=== PATIENT | male | born 1960 | race Caucasian/White ===

== ENCOUNTER 2022-12-31 10:37 | Outpatient (OUT) | payer OTHER, SELFPAY ==
[2022-12-31 11:15] LABS: Basophils Absolute Auto 0.1 10^3/uL (0.0-0.1); Basophils Percent Auto 0.6 % (0.2-2.0); Eosinophils Absolute Auto 0.2 10^3/uL (0.0-0.7); Eosinophils Percent Auto 2.4 % (0.9-7.0); Hemoglobin 16.1 g/dL (14.0-18.0); Immature Granulocytes Abs Auto 0.02 10^3/uL (0.00-0.03); Immature Granulocytes Pct Auto 0.2 % (0.0-0.5); Lymphocytes Absolute Auto 2.7 10^3/uL (1.2-3.8); Lymphocytes Percent Auto 31.4 % (20.5-60.0); Mean Corpuscular HGB Conc 33.5 g/dL (29.9-35.2); Mean Corpuscular Hemoglobin 28.5 pg (25.9-34.0); Mean Corpuscular Volume 85.1 fL (80.0-94.0); Mean Platelet Volume 10.3 fL (9.5-13.5); Monocytes Absolute Auto 0.9 10^3/uL (0.3-0.8); Monocytes Percent Auto 10.8 % (1.7-12.0); Neutrophils Absolute Auto 4.8 10^3/uL (1.4-6.5); Neutrophils Percent Auto 54.6 % (43.0-75.0); Platelet Count 194 10^3/uL (150-450); Red Blood Count 5.64 10^6/uL (4.70-6.10); Red Cell Distribution Width 13.2 % (11.0-15.0); White Blood Count 8.7 10^3/uL (4.0-11.0)
[2022-12-31 11:45] LABS: Alanine Aminotransferase 35 U/L (16-63); Albumin Globulin Ratio 1.3; Albumin Level 3.8 g/dL (3.4-5.0); Alkaline Phosphatase 83 U/L (46-116); Anion Gap 12.4; Aspartate Amino Transferase 18 U/L (15-37); BUN Creatinine Ratio 20.2; Bilirubin Total 0.6 mg/dL (0.2-1.0); Calcium 8.9 mg/dL (8.5-10.1); Carbon Dioxide 26.3 mmol/L (21.0-32.0); Chloride 106 mmol/L (98-107); Chol HDL Ratio 4.1; Cholesterol 132 mg/dL (<=200); Estimated GFR (African America >60 (>=60); Estimated GFR (Non-African Ame >60 (>=60); Globulin 2.9 g/dL; Glucose 95 mg/dL (74-106); HDL Cholesterol 32 mg/dL (40-60); Potassium 3.7 mmol/L (3.5-5.1); Sodium 141 mmol/L (136-145); Thyroid Stimulating Hormone 2.115 uIU/mL (0.358-3.740); Total Protein 6.7 g/dL (6.4-8.2); Triglycerides 88 mg/dL (<=150); VLDL CHOLESTEROL 17.6 mg/dL
[2022-12-31 11:57] LABS: Prostate Specific Antigen Scrn 3.77 ng/mL (<=4.00)
== END 2022-12-31 10:38 | disposition home or self-care (01) ==
LOC: LAB 10:41
PROVIDERS: PCP Family Medicine; Visit Provider Family Medicine
DX: Z12.5 Encounter for screening for malignant neoplasm of prostate (principal); E78.5 Hyperlipidemia, unspecified
CPT/HCPCS: 36415; 80053; 80061; 84443; 85025; G0103

== ENCOUNTER 2023-01-06 14:41 | Outpatient (OUT) | payer OTHER, SELFPAY ==
--- NOTE | 2023-01-06 | XR_ITS ---
[facility] [place] [id number] Patient Name: LOUIS SHIELDS MRN: [id number] date: 1960 Sex: M Assigned Patient Location: [facility] Current Patient Location: Accession/Order Number: [id number] Exam Date: 01/06/2023 14:45 Report Date: 01/07/2023 09:32 At the request of: MELANIA OREILLY Procedure: XR shoulder RT min 2V PROCEDURE: XR shoulder RT min 2V HISTORY: Pain in right shoulder M25.511 , chronic, limited range of motion COMPARISON: None. FINDINGS: BONES:Narrowing of the acromioclavicular joint with undersurface osteophytes. Small degenerative osteophyte along the inferior articular margin of the humeral head; no articular surface irregularity appreciable joint space narrowing. No fracture or dislocation. SOFT TISSUES:No visible soft tissue swelling. EFFUSION:None visible. OTHER: Negative. XR/XR shoulder RT min 2V IMPRESSION: 1. Moderate degenerative changes of the acromioclavicular joint which would predispose to rotator cuff injury. 2. Mild degenerative changes of the glenohumeral joint. Electronically authenticated by: KATRINA ANDERSON Date: 01/07/2023 09:32
== END 2023-01-06 14:42 | disposition home or self-care (01) ==
LOC: RAD 14:42
PROVIDERS: PCP Family Medicine; Visit Provider Family Medicine
DX: M25.511 Pain in right shoulder (principal)
CPT/HCPCS: 73030

== ENCOUNTER 2025-03-13 09:16 | Outpatient (OUT) | payer MEDICARE, BC, SELFPAY ==
--- OUTSIDE RECORDS SUMMARY | 2025-03-02 19:21 | XMS_ITS | Continuity of Care Document ---
Author Organization [facility] Address [address] [place] [address] Phone Care Team Providers Care Elevator Serviceman Name Role Phone Torsten Mahajan DO Primary Care Provider Torsten Mahajan DO Attending Provider Jay Ballard DO Emergency Provider Care Teams Patient Care Team Team Status: Active Member Role/Relationship Status Hernan Mahajan DO Primary Care Provider Active Visit Care Team Team Status: Inactive Member Role/Relationship Status Hernan Mahajan DO Primary Care Provider Active Sta rt: December 24, 2024 End: December 24ryharmeet Mahajan DOAttending ProviderActiveStart: December 24, 2024 End: December 24, 2024 Visit Care Team Team Status: Inactive Member Role/Relationship Status Dates Torsten Mahajan DO Primary Care Provider Active Sta rt: March 02, 2025 End: March 02, 2025Georcassie Ballard DOEmejustin ProviderActiveStart: March 02, 2025 End: March 02, 2025 Chief Complaint and Reason for Visit Chief Complaint Admit Date r/s Late Oct Appt December 24, 2024 1:43pm abd pain March 02, 2025 1 0:41am Reason for Visit Admit Date Obesity December 24, 2024 1:43pm Cyst December 24, 2024 1:43pm Body mass index (BMI) of 40.1 to 44.9 in adult December 24, 2024 1:43pm Allergies, Adverse Reactions, Alerts Allergen Type Severity Reaction Last Updated Verified Status No Known Allergies Allergy Unknown March 02, 2025 4:51pmYesActive Social History Smoking Status Status Start Date End Date Date of Observa tion Never smoked tobacco (finding) March 02, 2025 10:56am Observation Status Observation Response Date of Response Legal Sex Male (finding) [facility] 1960 Family History Relationship Condition Age at Onset Recorded Date/T kiesha father Hypertension Unknown grandparentDeceasedUnknownHeart diseaseUnknowngrandparentDeceasedUnknownmother HypertensionUnknownDiabetes mellitusUnknownObesityUnknownsisterObesityUnknown Problems Active Problems Problem Diagnosis/Recorded Date Onset Date Stat us Elevated PSA December 27, 2023 9:11am Unknown Act rosa Obstructive sleep apnea on CPAP May 07, 2020 11 :15am Unknown Active Hyperlipidemia December 26, 2023 8:10am Unknown Active Acute gallstone pancreatitis March 02, 2025 7:25pm Unknown Active BMI 40.0-44.9, adult July 16, 2024 9:23am Unknown Active Prediabetes February 06, 2024 9:50am Unknown A ctive Left knee pain June 20, 2023 2:55pm Unknown Ac tive CPAP (continuous positive ai rway pressure) dependence December 26, 2023 8:10am Unknown Active Hypertension May 07, 2020 11:15am Unknown Active Obesity December 26, 2023 8:10am Unknown Active Inactive/Resolved Problems Problem Diagnosis/Recorded Date Onset Date Stat us Acute UTI May 07, 2020 10:48am Unknown Resolved Medications Medication Status Dose Units Route Directions Qty Days Refills S tart Date Stop Date End Date Reason(s) Instructions Adherence Valsartan-Hydrochlorothiazide 160-12.5 mg tablet Discontinued 1 TAB PO Daily 90 1April 2023 4:27pmJune 2023 1:04pmPantoprazole 40 mg tablet,delayed release (DR/EC)Hhjfgzjccvin41HWXVTidnw403Meeki 2023 4:28pmJune 2023 1:04pmCelecoxib (Celebrex) 400 mg xoyyunfIadmioqmkfej631IRRVGshrb113Zfofv 2023 11:00pmJune 2023 1:04pmCelecoxib (Celebrex) 400 mg capsule Hcudetozfkzc298FXAJIqeam935Iuul 2023 1:03pmSeptember 2023 7:42am Pantoprazole 40 mg tablet,delayed release (DR/EC)Rcibypaspkud43EKUWGynqm916Ixls 2023 1:03pmSeptember 2023 7:42amValsartan-Hydrochlorothiazide 160- 12.5 mg pfyndxJoiwdjrqrawj6VGBIIGltxu380Cjrg 2023 1:03pmSeptember 2023 7:42amSemaglutide (Weight Loss) 1.7 mg/0.75 mL pen injectorDiscontinued1.7 MGSUBCUTevery heun40Nluhccnl 2024 12:00amApril 2024 9:31am1.8 mg through [facility] DrugCelecoxib (Celebrex) 400 mg nhbmlasTbgbth927XHLSDvcvy135 February 04, 2025 11:52amComplies with drug therapyValsartan- Hydrochlorothiazide 160-12.5 mg cbpiekAkqumf5RLZHKMuoif129Cdbpdlsw 10th, 2025 11:52amComplies with drug therapyValsartan-Hydrochlorothiazide 160-12.5 mg MhoqxjOehdnmttoplv2YBIZKSwxvoUoptzulw 2020 12:00amApril 2023 4:30pm Pantoprazole 40 mg Tablet,Delayed Release (Dr/Ec)Ohqzrqqvcocc06RXTXYvurpBbdmbebg 2020 12:00amApril 2023 4:30pmIbuprofen-Famotidine (Duexis) 800-26.6 mg IoyiccXizrmhuhgqnl9FOCDBQxlws times dailyFebruary 2020 12:00amNovember 2023 9:58amOndansetron Hcl (Zofran) 4 mg isecyaZmerlhcyqsja6BTJMvzwtb 6 to 8 hours as needed for nausea and uayymtgl746Grjwhoug 2020 12:00amNovember 2023 9:59amMultivitamin (Daily Multi-Vitamin) qhdxkbQtiqzn7VFFQYUvmli March 02, 2025 12:00amComplies with drug therapySemaglutide (Ozempic) 0.25 mg or 0.5 mg (2 mg/3 mL) pen injectorDiscontinued0.5MGSUBCUTevery weekFebruary 06, 2024 12:00amNovember 2023 10:32amOmeprazole 20 mg tablet,delayed release (DR/EC)Njvxpa20MVMBBtodbWkdtxlyi 11th, 2024 12:00amComplies with drug therapyOmega 3-Haj-Pid-Fish Oil (Fish Oil) 1,200 (144-216) mg zbkrvxwWffkao1OHJ PODailyNove2023 12:00amComplies with drug therapysemaglutide Discontinued0.6MGSUBCUTOnce a ftzl31Ymtpincz2023 12:00amFebruary 2024 9:30amBudererCelecoxib (Celebrex) 400 mg fifrrziYfrvuqqancok903UOFQVyqor791 December 26, 2023 7:41amNovember 2024 11:52amValsartan- Hydrochlorothiazide 160-12.5 mg gzaqioVhvveayklitk0KIGVZDpdgb827Gynzlayfy 30th, 2024 7:41amNovember 2024 11:52amPantoprazole 40 mg tablet,delayed release (DR/EC)Kxvpbvezgnsp07KMUKAsrjj791Ewlaayflf 30th, 2024 7:42amNovember 2023 9:59amSemaglutide (Weight Loss) 1.7 mg/0.75 mL pen injectorActive1.8MGSUBCUT every weekApril 2024 9:31am1.8 mg through [facility] DrugComplies with drug therapy Immunizations Immunization Event Date Not Given Reason Dose Number Edger Liner Lot Number Reason(s) Given Vaccine Information Statement (VIS) Detail Administration Location Zoster Vaccine Recombinant, Adjuvanted March 292019 Zoster Vaccine Recombinant, AdjuvantedMay 2019 Procedures Procedure Date Performed Status US gall bladder March 02, 2025 11:10am compl eted CT abdomen pelvis w con March 02, 2025 12:39 pm completed Urine Culture March 02, 2025 active Blood Culture March 02, 2025 active Blood Culture March 02, 2025 active Relevant Diagnostic Tests and/or Laboratory Data Laboratory Results Test Collection Date/Time Result Date/Time Result Interpretation Reference Range Result Comment Performing Site Corrected White Blood Count March 02, 2025 11:06am March 02, 2025 11:25am 17.7 10*3/uL Above high normal 4.1-10.5 [facility] [id number] [address] [facility] [address]Gvyqmipwggo WBC CountDecemb2024 11:06amDecember 2024 11:25am17.7 10*3/uLAbove high normal4.1-10.5[facility] [id number] [address] [facility] [address]Nmc Blood CountDecemb2024 11:06amDecember 2024 11:25am6.16 10*6/uLAbove high normal3.90-5.60[facility] [id number] [address] [facility] [address]JwlhoqfbxrOqoqpqnm 2024 11:06amDecember 2024 11:25am 17.4 g/dLAbove high mqktsa14.0-17.0[facility] [id number] [address] [facility] [address]RqvkovjcdbRdezueqe 2024 11:06amDecember 2024 11:25am 51.4 %Above high mznvor84.8-50.0[facility] [id number] [address] [facility] [address]Qyoj Corpuscular VolumeDecember 2024 11:06amDecember 2024 11:25am83.5 fL83.5-101[facility] [id number] [address] [facility] 20771Ylkx Corpuscular HemoglobinDecember 2024 11:06amDecember 2024 11:25am28.2 pg27.5-35.2F[facility] [id number] [address] [facility] [address]Qrsn Corpuscular Hemoglobin ConcentDecember 2024 11:06am March 02, 2025 11:25am33.8 g/dL32.5-35.6F[facility] [id number] [address] [facility] [address]Apr Cell Distribution WidthDece2024 11:06amce2024 11:25am14.3 %12.0-14.8[facility] [id number] [address] [facility] [address]Ovhfqjbh CountDece2024 11:06amMarch 02, 2025 11:13xo370 10*3/mM341-378LfzismbngGeorgetown Behavioral Hospital [facility] [id number] [address] [facility] [address]Hddd Platelet VolumeMarch 02, 2025 11:06amMarch 02, 2025 11:25am8.7 fL6.6-10.1F[facility] [id number] [address] [facility] [address]Cwlvrqhu Distribution WidthMarch 02, 2025 11:06amMarch 02, 2025 11:54am26.12 %Above high normal0.00-20.00For adults in ED, MDW > 20.0 may be associated with a higher risk of sepsis during the first 12 hrs of hospital admissionGe[facility] [id number] [address] [facility] [address]Tszsaynvdzc (%) (Auto)March 02, 2025 11:06amMarch 02, 2025 11:54am82.7 %.[facility] [id number] [address] [facility] [address]Khdiwzuxbdx (%) (Auto)March 02, 2025 11:06amDece2024 11:54am6.1 %.[facility] [id number] [address] [facility] [address]Gaxlyecnp (%) (Auto)March 02, 2025 11:06amDecember 2024 11:54am10.5 %.[facility] [id number] [address] [facility] [address]Owxouhggnnv (%) (Auto)March 02, 2025 11:06amMarch 02, 2025 11:54am0.1 %.[facility] [id number] [address] [facility] [address]Ztgrfbpwn (%) (Auto)March 02, 2025 11:062024 11:54am0.6 %.[facility] [id number] [address] [facility] [address]Ltjrrbiha RBC Relative Count (auto)March 02, 2025 11:06am March 02, 2025 11:54am0.0 /100{WBC}0-0.5F[facility] [id number] [address] [facility] [address]Yixvtxklecr # (Auto)March 02, 2025 11:062024 11:54am14.6 10*3/uLAbove high normal1.8-7.7F[facility] [id number] [address] [facility] [address]Hjegjbzykee # (Auto)March 02, 2025 11:06amMarch 02, 2025 11:54am1.1 10*3/uL1.00-4.8[facility] [id number] [address] [facility] [address]Pdzevinpo # (Auto)March 02, 2025 11:062024 11:54am1.9 10*3/uLAbove high normal0.0-0.8[facility] [id number] [address] [facility] [address]Kvsdotegryt # (Auto)March 02, 2025 11:06amMarch 02, 2025 11:54am0.0 10*3/uL0.0-0.45[facility] [id number] [address] [facility] [address]Wtrxmnkdo # (Auto)March 02, 2025 11:06amMarch 02, 2025 11:54am0.1 10*3/uL0.0-0.2F[facility] [id number] [address] [facility] [address]Pdf Blood Cell MorphologyMarch 02, 2025 11:06amDe5 11:54amNormalNormalGeorgetown Behavioral Hospital [facility] [id number] [address] [facility] [address]Vaoaewpn EstimateDecember 2024 11:06amDecember 2024 11:54amNormalNormalGe[facility]al [facility] [id number] [address] [facility] [address]Yanswjht Morphology CommentDecember 2024 11:06amDecember 2024 11:54amNormalNormalGeorgetown Behavioral Hospital [facility] [id number] [address] [facility] [address]Vzhsi ColorDecember 2024 12:46pmDecember 2024 1:02pm Dark-yellowAbnormal (applies to non-numeric results)YellowGeorgetown Behavioral Hospital Ctr [id number] [address] [facility] [address]Tvfnp AppearanceDecember 2024 12:46pmDecember 2024 1:02pmClearClearGeorgetown Behavioral Hospital [facility] [id number] [address] [facility] [address]Yxivr Specific GravityDecember 2024 12:46pmDecember 2024 1:02pm1.034Above high normal1.001-1.030[facility] [id number] [address] [facility] [address]24[address]Hbpmj pHDecember 2024 12:46pmDecember 2024 1:02pm6.0 5.0-9.0[facility] [id number] [address] [facility] [address]Xcdau Leukocyte EsteraseDecember 2024 12:46pmDecember 2024 1:02pmNegativeNegativeGeorgetown Behavioral Hospital [facility] [id number] [address] [facility] [address]Ehgwf NitriteDecember 2024 12:46pmDecember 2024 1:02pmNegativeNegativeGeorgetown Behavioral Hospital [facility] [id number] [address] [facility] [address]Ttzlu ProteinDecember 2024 12:46pmDecember 2024 1:02pm70 mg/dLAbove high normalNegJoint [facility] [id number] [address] [facility] [address]Vpixz Glucose (UA)March 02, 2025 12:46pmDecember 2024 1:02pmNormal mg/dLNormMercy Health [facility] [id number] [address] [facility] [address]Qhkmg KetonesDecember 2024 12:46pmDecember 2024 1:02pm2+Above high normalNegJoint [facility] [id number] [address] [facility] [address]23[address]Eezfn UrobilinogenDecember 2024 12:46pmDecember 2024 1:02pm4 mg/dLAbove high normalNormMercy Health St[facility] [id number] [address] [facility] [address]Xfwxr BilirubinDecemb2024 12:46pmDecember 2024 1:02pm3+Above high normalNegJoint [facility] [id number] [address] [facility] [address]24[address]Rdssh Occult BloodDecember 2024 12:46pmDecember 2024 1:02pm2+Above high normalNegJoint [facility] [id number] [address] [facility] [address]Hkega RBCDecember 2024 12:46pmDecember 2024 1:12sz4-1 [HPF]Above high normal0-4F[facility] [id number] [address] [facility] [address]Qyqbn WBCDecember 2024 12:46pmDecember 2024 1:19um5-7 [HPF]0-4F[facility] [id number] [address] [facility] [address]80[address]Fovsf Squamous Epithelial CellsDecember 2024 12:46pm March 02, 2025 1:07pmN/AFReg[facility] [id number] [address] [facility] 24[address]Uyctx BacteriaDecember 2024 12:46pmDecember 2024 1:07pmRare [HPF]None SeenGeorgetown Behavioral Hospital Ctr [id number] [address] [facility] [address]Nysrc Hyaline CastsDecember 2024 12:46pmDecember 2024 1:07pmNone [LPF]0-8[facility] [id number] [address] [facility] 10653Swswq MucusDecember 2024 12:46pmDecember 2024 1:07pm 2+ [LPF]Abnormal (applies to non-numeric results)[facility] [id number] [address] [facility] [address]Wolkjsc LevelDecemb2024 11:06amDeceer 2024 11:88xv353 mg/dLAbove high teylvp46-529NFP recommended reference rangeRandom Glucose Reference Range is dependent on time and content of last meal. Glucose of more than 200 mg/dL in a nonstressed, ambulatory subject supports the diagnosisof Diabetes Mellitus.[facility] [id number] [address] [facility] 47[address]Bblrn Urea NitrogenDece2024 11:06amDece2024 11:58am10 mg/dL7-25[facility] [id number] [address] [facility] [address]59[address]AaeoddzojgPzzrkcee 6th, 2025 11:06amDece2024 11:58am 0.97 mg/dL0.70-1.30[facility] [id number] [address] [facility] 8100[address]Vqdpzncht GFR (CKD-EPI)March 02, 2025 11:06amDece2024 11:58am> 60.0 mL/MinGeorgetown Behavioral Hospital [facility]tr [id number] [address] [facility] [address]Tbistz LevelDecemb2024 11:06amDecember 2024 11:09qz607 mmol/P365-010AauqygejcGeorgetown Behavioral Hospital [facility]tr [id number] [address] [facility] 757[address]Fqzghcmvt LevelDece2024 11:06amDecember 2024 11:58am3.3 mmol/LBelow low normal3.5-5.1FReg[facility] [id number] [address] [facility] 69[address]Mmfbktsc LevelDecember 2024 11:06amDecember 2024 11:58am98 mmol/S63-899BevfptornGeorgetown Behavioral Hospital [facility]tr [id number] [address] [facility] [address]Cycgrq Dioxide LevelDecember 2024 11:06amDecember 2024 11:58am28.2 mmol/L21.0-31.0[facility] [id number] [address] [facility] 30[address]Pqyjv GapDecember 2024 11:06amDecember 2024 11:58am 13.1 mEq/L6.0-15.0[facility] [id number] [address] [facility] [address]Ektpklc LevelDecember 2024 11:06amDecember 2024 11:58am9.8 mg/dL8.6-10.3F[facility] [id number] [address] [facility] [address]Yhnfk ProteinDecember 2024 11:06amDecember 2024 12:32pm7.2 g/dL6.4-8.9[facility] [id number] [address] [facility] 854[address]EgxmgtjXtomvlqr 2024 11:06amDecember 2024 12:32pm4.6 g/dL3.5-5.7F[facility] [id number] [address] [facility] 848[address]TojoangvYewvddqa 2024 11:06amDecember 2024 12:32pm2.6 g/dLGeorgetown Behavioral Hospital [facility] [id number] [address] [facility] 10807Ufoorkl/Globulin RatioDecember 2024 11:06amDecember 2024 12:32pm1.8[facility] [id number] [address] [facility] 91971Blmlo BilirubinDecember 2024 11:06amDecember 2024 12:32pm11.4 mg/dLAbove high normal0.3-1.0Samples from patients who have taken Naproxen have shown spurious elevation in Total Bilirubin levels. A metabolite of Naproxen, O-desmethylnaproxen, has been shown to interfere with the Keila-Melody method for measuring Total Bilirubin.[facility] [id number] [address] [facility] [address]Woleeu BilirubinDecember 2024 11:06amDecember 2024 12:32pm7.60 mg/dLAbove high normal0.03-0.18F[facility] [id number] [address] [facility] 25[address]Sjqmbvjn BilirubinDecember 2024 11:06amDece2024 12:32pm3.8 mg/dLGeorgetown Behavioral Hospital [facility] [id number] [address] [facility] 81955Btzrutrye Amino Transf (AST/SGOT)March 02, 2025 11:06am March 02, 2025 12:23ee519 U/LAbove high -40VluiwtvclGeorgetown Behavioral Hospital Ctr [id number] [address] [facility] 98497Hwkjqpb Aminotransferase (ALT/SGPT)March 02, 2025 11:06am March 02, 2025 12:79bf370 U/LAbove high normal7-52[facility] [id number] [address] [facility] 74[address]Noqjitie PhosphataseDece2024 11:06amDece2024 12:77tp593 U/LAbove high hmodew65-740SwzoerotdGeorgetown Behavioral Hospital [facility]tr [id number] [address] [facility] 432[address]DxsobnVjnfstln 6th, 2025 11:06amDece2024 12:32pm 2817.0 U/LAbove high iyrefl42.0-82.0[facility] [id number] [address] [facility] 59706Osmymy Acid LevelDece2024 11:47amDece2024 12:23pm1.1 mmol/L0.5-1.9Lactic Acid reference range has been updated to 0.5 ??? 1.9 mmol/L and the critical range of 2.0 orgreater.[facility] [id number] [address] [place] [address] 07[address]Vypqsiys I High SensitivityDecember 2024 11:06amDecember 2024 11:49am8 ng/L0-20The Troponin units of report have been changed to meet the Chest Pain Accreditation requirement, element EC5.M1l2. Troponin units are changed from pg/ml to ng/L. Also, the decimal is removed and results are in whole numbers.[facility] [id number] [address] [place] [address]38[address]Dihkooim Creatinine Clearance (ChemDecember 2024 11:06am March 02, 2025 11:18gm919.10[facility] [id number] [address] [place] [address] Diagnostic Imaging Reports Author Lazaro Gerard [facility] CenterReport Date/TimeDeceer 2024 12:34pm [facility] Main [address] [address] Ultrasound Report Signed Patient: Fab Peace JR MR#: [id number] : 1960 Acct:[id number] Age/Sex: 64 / M ADM Date: 5 Loc: ER Room: Type: [facility] ER Attending Dr: Ordering Provider: Jay Ballard DO Date of Service: 03/02/25 US/US gall bladder: ABDOMINAL PAIN Copies to: Jay Ballard DO~ LIMITED ABDOMINAL ULTRASOUND: CLINICAL HISTORY: Right upper quadrant abdominal pain for past 3 days COMPARISON: CT abdomen pelvis 05/07/2020 TECHNIQUE: Grayscale and color Doppler images of the right upper quadrant organswere obtained. FINDINGS: Pancreas: Obscured Liver: Enlarged liver measuring 22 cm in length. Fatty infiltration with likelyFocal fatty sparing 3.4 x 2.1 x 1.7 cm size. Gallbladder: Evaluation degraded due to pain medication. There is shadowing foci suggestive gallstones. Echogenic debris noted. Wall grossly unremarkable 2.6 mm. Negative Lerma's sign. CBD: Possible areas of increased echogenicity within the common bile duct noted. These echogenicities demonstrate shadowing. Common bile duct is prominent measuring 8.7 mm. US/US gall bladder IMPRESSION: Mildly prominent common bile duct with questionable debris. No shadowing stonesidentified within the constraints of this examination. Cholelithiasis and sludge. Negative Lerma's however pain medications were administered. Impression dictated by: Lazaro Gerard M.D. 03/02/2025 12:34 PM Dictation Location: [place] [address] Tech: Meghann Dasilvaciera Transcribed By: ELFEGO 03/02/25 1234 Dictated By: Lazaro Gerard MD 03/02/25 1230 Signed By: <Electronically signed by Lazaro Gerard MD in OV> 03/02/25 1234 Author Lazaro Gerard [facility] CenterReport Date/TimeDecember 2024 2:04pm [facility] [place] [address] CT Scan Report Signed Patient: Fab Peace JR MR#: [id number] : 1960 Acct:[id number] Age/Sex: 64 / M ADM Date: 5 Loc: ER Room: Type: [facility] ER Attending Dr: Copies to: Jay Ballard DO~ Ordering Provider: Jay Ballard DO Date of Service: 03/02/25 CT/CT abdomen pelvis w con: RUQ tenderness CT ABDOMEN AND PELVIS WITH INTRAVENOUS CONTRAST: CLINICAL HISTORY: Upper abdominal pain for 4 days COMPARISON: Ultrasound upper quadrant 03/02/2025 TECHNIQUE: Spiral images were obtained through the abdomen and pelvis followingthe administration of intravenous contrast. This CT exam was performed using one or more following dose reduction techniques: Automated exposure control, adjustment of the mA and/or kV according to patient size, or use of iterative reconstruction technique. FINDINGS: Cardiomegaly, coronary artery disease, bibasilar parenchymal opacity likely atelectasis. Fatty infiltration liver. There is a small cleft is diminished loculation alongthe gallbladder fossa. Is mild enhancement along the gallbladder fossa noted. Cholelithiasis. Otherwise diffuse fatty infiltration. Identified. There is minimal prominence of the biliary tree. Adrenals, kidneys, pancreas unremarkable. Spleen mildly large cysts 15 cm. Mild retained stool throughout the colon. No bowel obstruction. Appendix unremarkable. Colonic diverticulosis. Bladder grossly unremarkable. Prostate enlarged 6.1 cm. Fat-containing inguinal hernias. Aorta nonaneurysmal. Degenerative changes of the lumbar spine. Postsurgical changes laminectomy identified mid lumbar levels. CT/CT abdomen pelvis w con IMPRESSION: Cholelithiasis with haziness along the gallbladder with findings worrisome pericholecystic fluid versus sloughed mucosa this may raise possibility for acute cholecystitis. Impression dictated by: Lazaro Gerard M.D. 03/02/2025 2:04 PM Dictation Location: [place] [address] Transcribed By: [facility] 03/02/25 1404 Dictated By: Lazaro Gerard MD 03/02/25 1359 Signed By: <Electronically signed by Lazaro Gerard MD in OV> 03/02/25 1404 Vital Signs Vital Reading Result Reference Range Collection Date/Time Height 73 [in_i] December 24, 2024 12:58yjIxolrj997.97 kgSept2024 12:45pmHeart Rate74 /kin93-291Bwpqadlrj 29th, 2025 12:45pmRespiratory rate18 /dtb15-46 December 24, 2024 12:45pmOxygen saturation by Pulse tsnsmpio26 %95-100 December 24, 2024 12:45pmBP Guagnxji252 mm[Hg]100-140Sept2024 12:45pmBP Cquhgjajg98 mm[Hg]60-100Sept2024 12:45pmBMI (Body Mass Index)41.3 kg/u8Keawkbybt2024 12:00xfGokewo59 [in_i]March 02, 2025 10:88fcMoirgw175.80 kgDecember 2024 10:52amBody Mjdvitvnuop313.6 [degF] 97.6-99.0December 2024 7:02pmHeart Rate85 /zje01-562Bttmwpwx 2024 10:56pmRespiratory rate16 /xaq33-56Pkrghwqc 2024 10:56pmOxygen saturation by Pulse ytlbnven65 %95-100December 2024 10:56pmBP Etcygxrf226 mm[Hg] 100-140December 2024 10:56pmBP Pckxpaqfi32 mm[Hg]60-100December 2024 10:56pmInhaled oxygen flow rate2 L/minDecember 2024 5:00pm Advance Directives Advance Directive Response Recorded Date/ Time Advance Directives No April 11, 2024 10:56am Insurance Providers Guarantor Fab Peace JR Address [address] [place] [address] 8 [address] [facility] [id number] Info.Home Phone: Coverage Status Update:2024 Payer Group Member ID Coverage Type Subscriber Relationship to Subscriber Effective Date Expiration Date [facility] [id number] Peace JR Id: [id number] [address] [place] [phone] Home Phone: Email: [email or web address] K[facility]An[facility] [id number] Peace JR Id: [id number] [address] [place] [phone] Home Phone: Email: [email or web address] KKSelfMedicmount carmel health system [id number] Peace JR Id: [id number] [address] [place] [phone] Home Phone: Email: [email or web address] KKSelf Encounters Encounter Location(s) Arrival/Admit Date Discharge/Departure Date Discharge/Departure Disposition Provider(s) Departed Physician/ Provider Office Visit -[facility] [place] December 24, 2024 1:43pm December 24, 2024 2:58pm Discharged to home care or self care (routine discharge) Angelique Hernández DO Departed Emergency -Emergency Room March 02, 2025 10:41am March 02, 2025 11:40pm Discharged/transfer red to a short term [facility] for inpatient Recent Diagnosis Onset Date Admit Date Obesity Unknown December 24, 2024 1:43pm Cyst Unknown December 24, 2024 1:43pm Body mass index (BMI) of 40.1 to 44.9 in adult U nknown December 24, 2024 1:43pm Assessments Author Radha [facility]2024 12:47pmThe above note written by Radha SHABAZZ acting as human recorder, note dictated by Dr. Torsten Mahajan. Plan of Treatment Author Radha [facility]2024 1:58pmEncouraged to watch diet and increase exercise regimen; we will continue to monitor. Patient presents in the office with a six pound weight loss from his last visit. Patient is worried that the semaglutide increase of 1.8mg gave him diarrhea. I suggested the patient try decreasing the dose to 0.6mg. Patient is agreeable. Prescription has been faxed. Noted on the forehead, I advised the patient if he would like to have this removed he would have to see a plastic surgeon. I also noted a cyst on his left ankle. We will continue to monitor. Future Tests Future scheduled test information is unavailable Pending Tests Test Name Ordered Date Scheduled Date Blood Culture March 02, 2025 11:47am Blood CultureDecember 2024 11:47amUrine CultureDecember 2024 12:46pm Future Visits Future appointment information is unavailable Future Procedures Procedure Name Ordered Date Scheduled Date Blood Culture March 02, 2025 11:10am Dece bill 2024 11:47am Urine Culture March 02, 2025 11:10am [facility] 2024 12:46pm Future Medications Future medication information is unavailable Patient Instructions Patient instructions are unavailable
--- OUTSIDE RECORDS SUMMARY | 2025-03-03 01:10 | XMS_ITS | Encounter Summary ---
Author Organization [facility] Address [address] [place] [address] Phone Care Team Providers Care Medical Office Technology Instructor Name Role Phone Torsten Mahajan Angelique MOSS Primary Care Provider [phone] Reason for Referral * Consultation (Routine) - AuthorizedSpecialtyDiagnoses / ProceduresReferred By ContactReferred To ContactGastroenterology Diagnoses Acute biliary pancreatitis, unspecified complication status (HHS-HCC) Elevated liver [place] [address] [place] [address] Phone: tel: fax: Lionel Reinoso MD [address] [place] [address] Phone: tel: fax: Referral IDStatusReasonStart DateExpiration DateVisits RequestedVisits [id number] Specialty Services Required / * Consultation (Routine) - AuthorizedSpecialtyDiagnoses / ProceduresReferred By ContactReferred To ContactPruab medical west Care Procedures Follow Up In Primary Care Rahul [place]ello [place] [id number] [place] [address] Phone: tel: fax: Referral IDStatusReasonStart DateExpiration DateVisits RequestedVisits [id number]/10/20252/ Reason for Visit * Auth/Cert (Routine)SpecialtyDiagnoses / ProceduresReferred By ContactReferred To Contact Diagnoses Biliary obstruction Pancreatitis Procedures NA Carly Prakash, [address] [place] [address] Phone: tel: fax: [address] [phone] Phone: tel: Referral IDStatusReasonStart DateExpiration DateVisits RequestedVisits [id number] Encounter Details DateTypeDepartmentCare Team (Latest Contact Info)Srpuqamtwvn45/07/2025 1:10 AM EST - 03/06/2025 1:20 PM ESTHospital Encounter [address] [phone] Rahul Mello MD [address] [place] [phone] Carly Prakash DO [address] [place] [id number] Biliary obstruction (Primary Dx); Acute biliary pancreatitis, unspecified complication status (HHS-HCC); Elevated liver function tests; Jaundice Discharge Disposition: Home Social History Tobacco UseTypesPacks/DayYears UsedDateSmoking Tobacco: NeverSmokeless Tobacco: Never Tobacco Cessation:Counseling Given: Not Answered Alcohol UseStandard Drinks/WeekCommentsYes0 (1 standard drink = 0.6 oz pure alcohol)SociallyPHQ-2AnswerDate RecordedPatient Health Questionnaire-2 Score0 03/03/2025Humiliation, Afraid, Rape, and Kick questionnaireAnswerDate Recorded Within the last year, have you been afraid of your partner or ex-partner?No 03/03/2025Within the last year, have you been humiliated or emotionally abused in other ways by your partner or ex-partner?No03/03/2025Within the last year, have you been kicked, hit, slapped, or otherwise physically hurt by your partner or ex-partner?No03/03/2025Within the last year, have you been raped or forced to have any kind of sexual activity by your partner or ex-partner?No03/03/2025 AUDIT-CAnswerDate RecordedQ1: How often do you have a drink containing alcohol? Monthly or less03/03/2025Q2: How many drinks containing alcohol do you have on a typical day when you are drinking?1 or Q3: How often do you have six or more drinks on one occasion?Never03/03/2025Overall Financial Resource Strain (CARDIA)AnswerDate RecordedHow hard is it for you to pay for the very basics like food, housing, medical care, and heating?Not hard at all03/03/2025Hunger Vital SignAnswerDate RecordedWithin the past 12 months, you worried that your food would run out before you got the money to buymore.Never true03/03/2025 Within the past 12 months, the food you bought just didn't last and you didn't have money to get more.Never true03/03/2025PRAPARE - TransportationAnswerDate RecordedIn the past 12 months, has lack of transportation kept you from medical appointments or from getting medications?No03/03/2025In the past 12 months, has lack of transportation kept you from meetings, work, or from getting things needed for daily living?No03/03/2025Housing Stability Vital SignAnswerDate RecordedIn the last 12 months, was there a time when you were not able to pay the mortgage or rent on time?No03/03/2025Number of Times Moved in the Last Year Not on file03/03/2025t any time in the past 12 months, were you homeless or living in a longterm (including now)?No03/03/2025HC UtilitiesAnswerDate Recorded In the past 12 months has the electric, gas, oil, or water company threatened to shut off services in your home?No03/03/2025Sex and Gender InformationValueDate RecordedSex Assigned at LdsvdJlty59/09/2025 1:41 PM ESTLegal GfyOgky37/26/2022 8:24 AM ESTGender CmmkhzhmIrqt06/09/2025 1:41 PM ESTSexual OrientationNot on filedocumented as of this encounter Last Filed Vital Signs Vital SignReadingTime TakenCommentsBlood Htdxhgxl686/6022903/06/2025 1:17 PM ESTRN pytjomymZuedt4141/10/2025 1:17 PM VPFDlbneuzlata65.3 ??C (97.3 ??F)03/06/2025 1:17 PM ESTRespiratory Lzxp965405/07/2024 1:17 PM ESTOxygen Emyzixqdci78% 03/06/2025 1:17 PM ESTInhaled Oxygen Concentration--Wcpqkq620 kg (310 lb) 03/03/2025 3:59 AM WKPDoxdfm996.6 cm (5' 6 )03/03/2025 3:59 AM ESTBody Mass Index50.04105/04/2024 3:59 AM ESTdocumented in this encounter Functional Status * Vital SignsQuestionAnswerDate of HeaytdpmqgWylsbxEI618/6687803/06/2025 1:17 PM Ivania HydePulse7103/06/2025 1:17 PM Ivania Hyde * Rosanna Fall RiskQuestionAnswerDate of AssessmentAuthorHistory of Falling, Immediate or Within 3 Tiajsm537/10/2025 9:00 AM Ely Erazo RN Marte Fall Risk Emxqb609403/06/2025 9:00 AM Ely Erazo RN * Magdiel ScaleQuestionAnswerDate of AssessmentAuthorBraden Scale Score22 03/06/2025 8:00 AM Ely Erazo RN * AUDIT-C ScoreAnswerDate of UmkyejmkfkIhrije043/07/2025 1:28 AM Frank uDmont RN * Audit Alcohol ScreeningQuestionAnswerDate of AssessmentAuthorQ1: How often do you have a drink containing alcohol?Monthly or less03/03/2025 1:28 AM Frank Castaneda RNQ2: How many drinks containing alcohol do you have on a typical day when you are drinking?1 or 1:28 AM Frank Dumont RNQ3: How often do you have six or more drinks on one occasion?Never03/03/2025 1:28 AM Frank Dumont RN * Malnutrition Screening Tool (MST)QuestionAnswerDate of AssessmentAuthor Malnutrition Uqytt94205/04/2024 1:27 AM Frank Dumont RN * Over the past 2 weeks, how often have you been bothered by any of the following problems?QuestionAnswerDate of AssessmentAuthorLittle interest or pleasure in doing thingsNot at all03/03/2025 1:28 AM Frank Dumont RN Feeling down, depressed, or hopelessNot at all03/03/2025 1:28 AM Frank Dumont RN * Over the past 2 weeks, how often have you been bothered by any of the following problems?QuestionAnswerDate of AssessmentAuthorPatient Health Questionnaire-2 Kxvur33205/04/2024 1:28 AM Frank Dumont RN * Calculated C-SSRS Risk Score (Lifetime/Recent)AnswerDate of AssessmentAuthorNo Risk Jvdypbyla96/07/2025 1:29 AM Frank Dumont RN * Dent Suicide Severity Rating Scale (Screener/Recent Self-Report)Question AnswerDate of AssessmentAuthor1. Wish to be (Past 1 Month)No03/03/2025 1:29 AM Frank Dumont RN2. Non-Specific Active Suicidal Thoughts (Past 1 Month)No03/03/2025 1:29 AM Frank Dumont RN6. Suicidal Behavior (Lifetime)No03/03/2025 1:29 AM Frank Dumont RN * Over the past 2 weeks, how often have you been bothered by any of the following problems?QuestionAnswerDate of AssessmentAuthorLittle interest or pleasure in doing thingsNot at all03/03/2025 1:28 AM Frank Dumont RN Feeling down, depressed, or hopelessNot at all03/03/2025 1:28 AM Frank Dumont RN documented as of this encounter Discharge Summaries * Rahul Mello MD - 03/06/2025 10:13 AM EST Discharge Diagnosis Biliary obstruction Issues Requiring Follow-Up Follow up with PCP; establish with surgeon near [facility] Follow up with GI for EUS Discharge Meds Medication List START taking these medications amoxicillin-clavulanate 875-125 mg tablet; Commonly known as: Augmentin; Take 1 tablet by mouth 2 times a day for 4 days. CONTINUE taking these medications celecoxib 400 mg capsule; Commonly known as: CeleBREX Fish OiL 1,000 (120-180) mg capsule; Generic drug: omega 9-bqs-cri-fish oil multivitamin with minerals tablet omeprazole [address] capsule; Commonly known as: PriLOSEC semaglutide (weight loss) 1.7 mg/0.75 mL pen injector valsartan-hydrochlorothiazide 160-12.5 mg tablet; Commonly known as: Diovan-HCT Test Results Pending At Discharge Pending Labs Order Current Status GRANT without Reflex MAIRA In process Anti-Smooth Muscle Antibody In process Antimitochondrial antibody In process Hospital Course History Of Present Illness Fab Peace Jr. is a 64 y.o. male presenting with right upper quadrant abdominal pain ongoing forthe last 72 hours. His has endorsed worsening scleral icterus/jaundice which prompted evaluation in the emergency department. Initial blood work noted leukocytosis as well as hyperbilirubinemia with a total bilirubin of 11 and a direct bilirubin of 7. Imaging obtained at that time showed mild dilation of the common bile duct with right upper quadrant ultrasound not necessarily identifying that same dilation. Lipase was elevated at 2800. Concern for gallstone pancreatitis. Patient was started on IV Zosyn with concern for possible cholangitis. Transferred to this facility for MRCP/ERCP and evaluation by advanced GI service. Hospital course: Patient was admitted to the hospital as a transfer from outside hospital when he was found to be jaundiced and had a bilirubin of 11. Patient arrived to [facility] with presumption of obstructive jaundice. However he had an MRCP showing no obstruction. There is mild gallbladder wall thickening. The big issue was was that he had pancreatitis. However, his bilirubin was higher than what would be expected. It also remained elevated for unknown reason. Plan was to see if his LFTs would improve and if not then he would get an inpatient endoscopic ultrasound however his bilirubin did drop from 11 down to 8.8 with all LFTs improving in addition to him having very little pain. He tolerated a low-fat diet and was discharged with plans for outpatient EUS and evaluation for laparoscopic cholecystectomy in the outpatient setting. He was discharged home in stable condition with 4 more days of Augmentin to complete a week of antibiotics for cholangitis prophylaxis. Discharge time greater than 35 minutes. Greater than 50% of time spent on counseling patient, coordination of care, medication reconciliation, transmitting medications to pharmacy and clarifying planof care with nursing staff and case management. Pertinent Physical Exam At Time of Discharge Physical Exam Constitutional: General: He is not in acute distress. Appearance: Normal appearance. HENT: Head: Normocephalic and atraumatic. Mouth/Throat: Mouth: Mucous membranes are moist. Eyes: Extraocular Movements: Extraocular movements intact. Conjunctiva/sclera: Conjunctivae normal. Cardiovascular: Rate and Rhythm: Normal rate and regular rhythm. Heart sounds: Normal heart sounds. Pulmonary: Effort: Pulmonary effort is normal. Breath sounds: Normal breath sounds. No wheezing, rhonchi or rales. Abdominal: General: Abdomen is flat. Bowel sounds are normal. Palpations: Abdomen is soft. Musculoskeletal: General: No swelling or tenderness. Normal range of motion. Cervical back: Normal range of motion and neck supple. Skin: General: Skin is warm and dry. Coloration: Skin is jaundiced. Findings: No rash. Neurological: General: No focal deficit present. Mental Status: He is alert and oriented to person, place, and time. Cranial Nerves: No cranial nerve deficit. Sensory: No sensory deficit. Psychiatric: Mood and Affect: Mood normal. Behavior: Behavior normal. Outpatient Follow-Up No future appointments. Rahul Mello MD documented in this encounter Discharge Instructions * Attachments The following attachments cannot be sent through Care Everywhere. * Low-fat diet (Polish) documented in this encounter Medications at Time of Discharge MedicationSigDispense QuantityRefillsLast FilledStart DateEnd Date celecoxib (CeleBREX) 400 mg capsule Take 1 capsule (400 mg) by mouth once daily. multivitamin with minerals tablet Take 1 tablet by mouth once daily. omega 2-lfi-vdn-fish oil (Fish OiL) 1,000 (120-180) mg capsule Take 1 capsule (1,000 mg) by mouth once daily. omeprazole (PriLOSEC) [address] capsule Take 1 capsule (20 mg) by mouth once daily in the morning. Take before meals. Do not crush or chew. semaglutide, weight loss, 1.7 mg/0.75 mL pen injector Inject 1.8 mg under the skin 1 (one) time per week. valsartan-hydrochlorothiazide (Diovan-HCT) 160-12.5 mg tablet Take 1 tablet by mouth once daily. amoxicillin-clavulanate (Augmentin) 875-125 mg tablet Indications:Acute biliary pancreatitis, unspecified complication status (HHS-HCC)Take 1 tablet by mouth 2 times a day for 4 days. 8 tablet 03/06/2025 11:03 AM ESTdocumented as of this encounter Progress Notes * Hope Kev, KAMR[employer]WILDLIFE BIOLOGIST - 03/06/2025 11:11 AM EST Subjective Getting abdominal discomfort so she continues to improve with just mid abdominal aching. He had been tolerating low-fat diet. Liver enzymes and bilirubin downtrending with T. bili down to 8 today. Patient will follow-up in GI clinic. Will determine timing for outpatient EUS. Objective Blood pressure (!) 146/98, pulse 65, temperature 36.1 ??C (97 ??F), temperature source Temporal, resp. rate 20, height 1.676 m (5' 6 ), weight 141 kg (310 lb), SpO2 96%. Physical Exam Constitutional: Alert and interactive, in NAD Eyes: PERRL, sclera icterus, no conjunctival injection Skin: Warm and dry, no rash or ecchymosis, jaundice ENMT: Mucous membranes moist, no lesions noted Resp: CTAB, even and unlabored CV: RRR, normal S1, S2, no m,r,g GI: +BS, soft, round, mid mid abd TTP, no rebound tenderness or guarding, no palpable masses or organomegaly Extremities: Extremities warm, no edema, contusions, wounds or cyanosis Neuro: Alert and oriented x3 Psych: Appropriate mood and behavior Medications Scheduled medications Scheduled Medications[1] Continuous medications Continuous Medications[2] PRN medications PRN Medications[3] DATA I personally reviewed relevant lab and radiology results including: CBC, CMP, coags, MRCP 03/06/25 Labs Lab Results Component Value Date WBC 9.8 03/06/2025 HGB 13.1 (L) 03/06/2025 HCT 39.7 (L) 03/06/2025 MCV 85 03/06/2025 PLT 220 03/06/2025 Lab Results Component Value Date GLUCOSE 105 (H) 03/06/2025 CALCIUM 8.4 (L) 03/06/2025 NA 138 03/06/2025 K 3.4 (L) 03/06/2025 CO2 23 03/06/2025 CL 106 03/06/2025 BUN 13 03/06/2025 CREATININE 0.83 03/06/2025 Lab Results Component Value Date ALT 115 (H) 03/06/2025 AST 46 (H) 03/06/2025 ALKPHOS 101 03/06/2025 BILITOT 8.8 (H) 03/06/2025 Lab Results Component Value Date IRON 41 03/05/2025 TIBC 223 (L) 03/05/2025 FERRITIN 1,275 (H) 03/05/2025 Lab Results Component Value Date INR 1.1 03/05/2025 INR 1.2 (H) 03/04/2025 PROTIME 12.2 03/05/2025 PROTIME 13.2 (H) 03/04/2025 Radiology MRCP 03/03/2025 noting: IMPRESSION: 1. Slightly edematous appearance of the pancreas with some peripancreatic fat stranding and mesenteric edema, with findings favoring acute interstitial pancreatitis, please correlate clinically. No evidence for necrosis or developing peripancreatic collection. Normal caliber main pancreatic duct. 2. Cholelithiasis. Question mild wall thickening of the gallbladder. Please correlate clinically to exclude acute cholecystitis. 3. Mild hepatomegaly with fatty infiltration of the liver. Prominent portacaval lymph node may be reactive. 4. Renal cysts. Signed by: Corry Mobley 03/04/2025 9:32 AM Dictation workstation: [id number] Assessment Fab Peace Jr. is a 64 y.o. male with PMH of CAD, HTN, HLD, prediabetes, metabolic syndrome, GERD, HH, diverticulosis, obesity, umbilical herniorrhaphy presenting from [facility] for abnormal LFTs, elevated lipase, abdominal discomfort. MRCP noting cholelithiasis, no biliary dilation or filling defects. Patient with continued improvement in abdominal discomfort. Tolerating low-fat diet. Liver enzymes and bilirubin downtrending. # c/f gallstone pancreatitis-improving # transaminitis/ hyperbilirubinemia-downtrending # abdominal pain-improving # N/V- resolved # GERD Plan: - continue supportive care - low fat diet as tolerated - continue analgesics and antiemetics as needed - continue to trend liver enzymes daily - pt will follow up with surgery near [place] for elective cholecystectomy - pt will follow up in GI clinic - timing for outpt EUS to be determined - pt should have repeat CMP in 5-7 days to ensure continued downtrend- order placed Plan has been discussed with Dr. Eckert. GI will sign off. Hope Angulo APRN/INDIA [1] pantoprazole, 40 mg, oral, Daily before breakfast piperacillin-tazobactam, 4.5 g, intravenous, q8h [Held by provider] valsartan 160 mg, hydroCHLOROthiazide 12.5 mg for Diovan HCT, , oral, Daily [2] [3] PRN medications: melatonin, [DISCONTINUED] ondansetron ODT OR ondansetron, polyethylene glycol * Fr. Cheng Whitlock - 03/05/2025 2:28 PM EST Spiritual Care Visit Spiritual Care Request Reason for Visit: Routine Visit: Introduction Continue Visiting: Yes Request Received From: Focus of Care: Visited With: Patient and family together (I visited yesterday.) Refer to Knowledge Analyst: Spiritual Care Assessment Spiritual Assessment: Care Provided: Intended Effects: Establish rapport and connectedness, Jeanna affirmation, Build relationship of care and support, Demonstrate caring and concern (I visited yesterday.) Methods: Offer spiritual/jainism support Interventions: [place] Sense of Community and or Church Affiliation: Orthodoxy Knowledge Analyst Addressed Needs/Concerns and/or Fernando Through: Church Encounters Church Needs: Prayer (I visited yesterday.) Sacramental Encounters Communion: Patient is currently unable, Ask the patient (I visited yesterday.) Communion Given Indicator: No Outcome: Outcome of Spiritual Care Visit: Affirmation, [place] (I visited yesterday.) Advance Directives: Spiritual Care Annotation Annotation: When I visited yesterday, his [place] was present. * Rahul eMllo MD - 03/05/2025 11:54 AM EST Fab Peace Jr. is a 64 y.o. male on day 2 of admission presenting with Biliary obstruction. Subjective Patient doing better. Essentially pain free. No new complaints. He is moving his bowels. Objective Last Recorded Vitals BP (!) 139/91 (BP Location: Left arm, Patient Position: Lying) Pulse 68 Temp 36.4 ??C (97.5 ??F) (Temporal) Resp 20 Wt 141 kg (310 lb) SpO2 96% Intake/Output last 3 Shifts: Intake/Output Summary (Last 24 hours) at 03/05/2025 1154 Last data filed at 03/05/2025 0608 Gross per 24 hour Intake 2406.67 ml Output -- Net 2406.67 ml Admission Weight Weight: 141 kg (310 lb) (03/03/25 0359) Daily Weight 03/03/25 : 141 kg (310 lb) Image Results MRCP pancreas w and wo IV contrast Narrative: Interpreted By: Corry Mobley, STUDY: MRCP PANCREAS W AND WO IV CONTRAST; 03/03/2025 9:41 am INDICATION: Signs/Symptoms:obstructive pattern to LFTs, jaundice. COMPARISON: No prior relevant studies for comparison ACCESSION NUMBER(S): [id number] ORDERING CLINICIAN: CARLY PRAKASH TECHNIQUE: MRI PANCREAS; Multiplanar magnetic resonance images of the abdomen were obtained including the following sequences; T2-weighted SSFSE with and without fat saturation, T1-weighted GRE in/opposed phase, DWI, fat saturated 3D-T1w GRE pre and dynamically post contrast. Radial thick slab T2w RARE MRCP and coronally reconstructed navigator gated high resolution 3-D T2w RESTORE MRCP with MIP reconstruction were also performed for MRCP. 30 ml of Gadolinium contrast agent Dotarem were administered intravenously without immediate complication. The study was performed on a 1.5 Swati GE magnet. FINDINGS: LIVER: The liver is mildly enlarged, 17.5 cm. The capsule is smooth. There is signal drop on out of phase imaging compatible with fatty infiltration. Some wedge-shaped and nodular peripheral areas of early arterial enhancement become isointense to background liver on the portal venous phase, likely areas of transient altered perfusion. No suspicious liver lesions. Signal voids along the dome may be calcifications. BILE DUCTS: Normal caliber intrahepatic and extrahepatic bile ducts. No peribiliary enhancement or filling defect. GALLBLADDER: The gallbladder contains multiple layering gallstones, questionably with some mild wall thickening. No significant pericholecystic fluid. PANCREAS: There is fatty infiltration of the pancreatic parenchyma. Normal caliber main pancreatic duct. No pancreas divisum. Focal pancreatic lesion seen. The pancreatic parenchyma appears slightly edematous with some mild peripancreatic fat infiltration, no drainable collection. Postcontrast enhancement is homogeneous. SPLEEN: Mildly enlarged, 14.5 cm. No focal lesion. ADRENAL GLANDS: No nodules. KIDNEYS: No right or left hydronephrosis or suspicious renal cortical lesion. There are bilateral small cortical and parapelvic cysts. LYMPH NODES: Prominent portacaval node measures 2.9 x 1.7 cm in long and short axis, probably reactive. No upper abdominal adenopathy by size criteria. ABDOMINAL VESSELS: The hepatic veins and portal veins are patent with patent appearing superior mesenteric and splenic veins. Normal caliber IVC and abdominal aorta. Grossly patent appearing celiac axis, superior mesenteric, and inferior mesenteric arteries. BOWEL: There is a small sliding-type hiatal hernia. Nondistended stomach and decompressed duodenum appear unremarkable. Visualized large and small bowel loops are nondilated. PERITONEUM/RETROPERITONEUM: There is no ascites or pneumoperitoneum, and no drainable collection or focal retroperitoneal lesion is seen. There is some mild peripancreatic and upper mesenteric fat stranding. BONES AND LOWER THORAX: Degenerative changes are seen along the thoracic and lumbar spine. There is slight leftward mid lumbar curvature. No destructive bony lesion or acute bony abnormality is seen. Heart size is upper normal, no pericardial or pleural effusion. Impression: 1. Slightly edematous appearance of the pancreas with some peripancreatic fat stranding and mesenteric edema, with findings favoring acute interstitial pancreatitis, please correlate clinically. No evidence for necrosis or developing peripancreatic collection. Normal caliber main pancreatic duct. 2. Cholelithiasis. Question mild wall thickening of the gallbladder. Please correlate clinically to exclude acute cholecystitis. 3. Mild hepatomegaly with fatty infiltration of the liver. Prominent portacaval lymph node may be reactive. 4. Renal cysts. Signed by: Corry Mobley 03/04/2025 9:32 AM Dictation workstation: [id number] Physical Exam Constitutional: General: He is not in acute distress. Appearance: Normal appearance. HENT: Head: Normocephalic and atraumatic. Mouth/Throat: Mouth: Mucous membranes are moist. Eyes: Extraocular Movements: Extraocular movements intact. Conjunctiva/sclera: Conjunctivae normal. Cardiovascular: Rate and Rhythm: Normal rate and regular rhythm. Heart sounds: Normal heart sounds. Pulmonary: Effort: Pulmonary effort is normal. Breath sounds: Normal breath sounds. No wheezing, rhonchi or rales. Abdominal: General: Abdomen is flat. Bowel sounds are normal. There is no distension. Palpations: Abdomen is soft. Tenderness: There is no abdominal tenderness. Musculoskeletal: General: No swelling or tenderness. Normal range of motion. Cervical back: Normal range of motion and neck supple. Skin: General: Skin is warm and dry. Coloration: Skin is jaundiced. Findings: No rash. Neurological: General: No focal deficit present. Mental Status: He is alert and oriented to person, place, and time. Cranial Nerves: No cranial nerve deficit. Sensory: No sensory deficit. Psychiatric: Mood and Affect: Mood normal. Behavior: Behavior normal. Relevant Results Scheduled medications Scheduled Medications[1] Continuous medications Continuous Medications[2] PRN medications PRN Medications[3] Results for orders placed or performed during the hospital encounter of 03/03/25 (from the past 24 hours) CBC Result Value Ref Range WBC 11.5 (H) 4.4 - 11.3 x10*3/uL nRBC 0.0 0.0 - 0.0 /100 WBCs RBC 4.65 4.50 - 5.90 x10*6/uL Hemoglobin 13.7 13.5 - 17.5 g/dL Hematocrit 39.4 (L) 41.0 - 52.0 % MCV 85 80 - 100 fL MCH 29.5 26.0 - 34.0 pg MCHC 34.8 32.0 - 36.0 g/dL RDW 14.2 11.5 - 14.5 % Platelets 200 150 - 450 x10*3/uL Comprehensive Metabolic Panel Result Value Ref Range Glucose 98 74 - 99 mg/dL Sodium 136 136 - 145 mmol/L Potassium 3.1 (L) 3.5 - 5.3 mmol/L Chloride 104 98 - 107 mmol/L Bicarbonate 23 21 - 32 mmol/L Anion Gap 12 10 - 20 mmol/L Urea Nitrogen 13 6 - 23 mg/dL Creatinine 0.86 0.50 - 1.30 mg/dL eGFR >90 >60 mL/min/1.73m*2 Calcium 8.8 8.6 - 10.3 mg/dL Albumin 3.2 (L) 3.4 - 5.0 g/dL Alkaline Phosphatase 93 33 - 136 U/L Total Protein 5.5 (L) 6.4 - 8.2 g/dL AST 47 (H) 9 - 39 U/L Bilirubin, Total 11.0 (H) 0.0 - 1.2 mg/dL ALT 142 (H) 10 - 52 U/L Magnesium Result Value Ref Range Magnesium 1.83 1.60 - 2.40 mg/dL Phosphorus Result Value Ref Range Phosphorus 2.2 (L) 2.5 - 4.9 mg/dL Protime-INR Result Value Ref Range Protime 12.2 9.8 - 12.4 seconds INR 1.1 0.9 - 1.1 Bilirubin, direct Result Value Ref Range Bilirubin, Direct 7.6 (H) 0.0 - 0.3 mg/dL Ferritin Result Value Ref Range Ferritin 1,275 (H) 20 - 300 ng/mL Iron and TIBC Result Value Ref Range Iron 41 35 - 150 ug/dL UIBC 182 110 - 370 ug/dL TIBC 223 (L) 240 - 445 ug/dL % Saturation 18 (L) 25 - 45 % MRCP pancreas w and wo IV contrast Result Date: 03/04/2025 Interpreted By: Corry Mobley, STUDY: MRCP PANCREAS W AND WO IV CONTRAST; 03/03/2025 9:41 am INDICATION: Signs/Symptoms:obstructive pattern to LFTs, jaundice. COMPARISON: No prior relevant studies for comparison ACCESSION NUMBER(S): [id number] ORDERING CLINICIAN: CARLY PRAKASH TECHNIQUE: MRI MCMAHON CREAS; Multiplanar magnetic resonance images of the abdomen were obtained including the following sequences; T2-weighted SSFSE with and without fat saturation, T1-weighted GRE in/opposed phase, DWI, fat saturated 3D-T1w GRE pre and dynamically post contrast. Radial thick slab T2w RARE MRCP and coronally reconstructed navigator gated high resolution 3-D T2w RESTORE MRCP with MIP reconstruction were also performed for MRCP. 30 ml of Gadolinium contrast agent Dotarem were administered intravenously without immediate complication. The study was performed on a 1.5 Swati GE magnet. FINDINGS: LIVER:The liver is mildly enlarged, 17.5 cm. The capsule is smooth. There is signal drop on out of phase imaging compatible with fatty infiltration. Some wedge-shaped and nodular peripheral areas of early arterial enhancement become isointense to background liver on the portal venous phase, likely areas of transient altered perfusion. No suspicious liver lesions. Signal voids along the dome may be calcifications. BILE DUCTS: Normal caliber intrahepatic and extrahepatic bile ducts. No peribiliary enhancement or filling defect. GALLBLADDER: The gallbladder contains multiple layering gallstones, questionably with some mild wall thickening. No significant pericholecystic fluid. PANCREAS: There is fatty infiltration of the pancreatic parenchyma. Normal caliber main pancreatic duct. No pancreas divisum. Focal pancreatic lesion seen. The pancreatic parenchyma appears slightly edematous with some mild peripancreatic fat infiltration, no drainable collection. Postcontrast enhancement is homogeneous.SPLEEN: Mildly enlarged, 14.5 cm. No focal lesion. ADRENAL GLANDS: No nodules. KIDNEYS: No right orleft hydronephrosis or suspicious renal cortical lesion. There are bilateral small cortical and parapelvic cysts. LYMPH NODES: Prominent portacaval node measures 2.9 x 1.7 cm in long and short axis, probably reactive. No upper abdominal adenopathy by size criteria. ABDOMINAL VESSELS: The hepatic veins and portal veins are patent with patent appearing superior mesenteric and splenic veins. Normal caliber IVC and abdominal aorta. Grossly patent appearing celiac axis, superior mesenteric, and inferior mesenteric arteries. BOWEL: There is a small sliding-type hiatal hernia. Nondistended stomach and decompressed duodenum appear unremarkable. Visualized large and small bowel loops are nondilated. PERITONEUM/RETROPERITONEUM: There is no ascites or pneumoperitoneum, and no drainable collection orfocal retroperitoneal lesion is seen. There is some mild peripancreatic and upper mesenteric fat stranding. BONES AND LOWER THORAX: Degenerative changes are seen along the thoracic and lumbar spine. There is slight leftward mid lumbar curvature. No destructive bony lesion or acute bony abnormality is seen. Heart size is upper normal, no pericardial or pleural effusion. 1. Slightly edematous appearance of the pancreas with some peripancreatic fat stranding and mesenteric edema, with findings favoring acute interstitial pancreatitis, please correlate clinically. No evidence for necrosis or developing peripancreatic collection. Normal caliber main pancreatic duct. 2. Cholelithiasis. Question mild wall thickening of the gallbladder. Please correlate clinically to exclude acute cholecystitis. 3. Mild hepatomegaly with fatty infiltration of the liver. Prominent portacaval lymph node may be reactive. 4. Renal cysts. Signed by: Corry Mobley 03/04/2025 9:32 AM Dictation workstation: [id number] Assessment & Plan Biliary obstruction Jaundice Elevated liver function tests Acute pancreatitis ([facility]) - patient with obstructive jaundice - t bili remains elevated; direct = 7.6 - MRCP showing pancreatitis and mild gallbladder wall thickening; no mention of CBD obstruction/mass/stricture - continue zosyn for cholangitis ppx - dilaudid PRN pain - GI consulted; bilirubin elevation without significant ALP elevation somewhat contradictory; if LFTs remain elevated tomorrow plan for EUS with Dr. Reinoso; in the meantime ok to trial fat restricteddiet today; NPO after midnight Code: full DVT PPX: low risk; ambulate GI PPX: not indicated Diet: low fat diet; NPO after midnight Dispo: possible DC in next 24-48 hours pending LFTs and GI decision on EUS. Rahul Mello MD [1] pantoprazole, 40 mg, oral, Daily before breakfast piperacillin-tazobactam, 3.375 g, intravenous, q8h potassium phosphate, 15 mmol, intravenous, Once [Held by provider] valsartan 160 mg, hydroCHLOROthiazide 12.5 mg for Diovan HCT, , oral, Daily [2] lactated Ringer's, 125 mL/hr, Last Rate: 125 mL/hr (12/09/25 0827) [3] PRN medications: HYDROmorphone, HYDROmorphone, melatonin, [DISCONTINUED] ondansetron ODT ORondansetron, polyethylene glycol * Steven Silva, DO - 03/05/2025 6:52 AM EST Subjective: Patient feeling better. He is hungry. LFTs remain elevated. Review of Systems ROS Negative unless otherwise stated above. Allergies RX Allergies[1] Medications Current Outpatient Medications Medication Instructions celecoxib (CELEBREX) 400 mg, oral, Daily multivitamin with minerals tablet 1 tablet, oral, Daily omega 4-vms-aju-fish oil (Fish OiL) 1,000 (120-180) mg capsule 1 capsule, oral, Daily omeprazole (PRILOSEC) 20 mg, oral, Daily before breakfast, Do not crush or chew. semaglutide (weight loss) 1.8 mg, subcutaneous, Weekly, valsartan-hydrochlorothiazide (Diovan-HCT) 160-12.5 mg tablet 1 tablet, oral, Daily PHYSICAL EXAM: Visit Vitals BP 140/85 Pulse 72 Temp 36.6 ??C (97.9 ??F) (Temporal) Resp 17 General: A&Ox3, NAD. HEENT: AT/NC. CV: RRR. Resp: CTA bilaterally. No wheezing, rhonchi or rales. GI: Soft, NT/ND. Extrem: No edema. Pulses intact. Skin: No Jaundice. Neuro: No focal deficits. Psych: Normal mood and affect. Results from last 7 days Lab Units 03/05/25 0547 03/04/25 0638 03/03/25 0541 WBC AUTO x10*3/uL 11.5* 13.6* 15.8* HEMOGLOBIN g/dL 13.7 13.6 14.7 HEMATOCRIT % 39.4* 40.8* 44.0 PLATELETS AUTO x10*3/uL 200 187 178 Results from last 7 days Lab Units 03/04/25 0635 03/03/25 0541 SODIUM mmol/L 135* 134* POTASSIUM mmol/L 2.9* 3.2* CHLORIDE mmol/L 100 100 CO2 mmol/L 26 24 BUN mg/dL 15 15 CREATININE mg/dL 0.97 1.01 CALCIUM mg/dL 8.7 8.5* PROTEIN TOTAL g/dL 5.2* 5.5* BILIRUBIN TOTAL mg/dL 11.3* 10.0* ALK PHOS U/L 102 117 ALT U/L 168* 281* AST U/L 50* 85* GLUCOSE mg/dL 105* 113* ASSESSMENT/PLAN: Fab Peace Jr. is a 64 y.o. male with a PMH of CAD, HTN, HLD, prediabetes, metabolic syndrome, GERD, HH, diverticulosis, obesity, umbilical herniorrhaphy who presented as a transfer from [facility] [place] for abnormal LFTs, elevated lipase, and abdominal pain likely 2/2 gallstone pancreatitis. Lipase: 2800. MRCP with pancreatitis, cholelithiasis, normal CBD. LFTs stable, (slightly down). -IVF. -Advance diet to regular low fat diet. -Trend LFTs. -Obtain expanded liver panel. -If LFTs remain high, will consider EUS tomorrow to assure no biliary pathology. Carlton Silva DO GI Attending [1] No Known Allergies * Hope Angulo APRN-WILDLIFE BIOLOGIST - 03/04/2025 2:20 PM EST Subjective Patient continues to have mid abdominal discomfort. MRCP noting cholelithiasis with no biliary dilation or signs of choledocholithiasis. Possibly a passed stone. Will hold off on ERCP pending tomorrow's LFTs. Patient will follow-up near [place] for elective cholecystectomy. Objective Blood pressure (!) 153/91, pulse 80, temperature 36.7 ??C (98.1 ??F), temperature source Temporal, resp. rate 20, height 1.676 m (5' 6 ), weight 141 kg (310 lb), SpO2 95%. Physical Exam Constitutional: Alert and interactive, in NAD Eyes: PERRL, sclera icterus, no conjunctival injection Skin: Warm and dry, no rash or ecchymosis, jaundice ENMT: Mucous membranes moist, no lesions noted Resp: CTAB, even and unlabored CV: RRR, normal S1, S2, no m,r,g GI: +BS, soft, round, mid abd TTP, no rebound tenderness or guarding, no palpable masses or organomegaly Extremities: Extremities warm, no edema, contusions, wounds or cyanosis Neuro: Alert and oriented x3 Psych: Appropriate mood and behavior Medications Scheduled medications Scheduled Medications[1] Continuous medications Continuous Medications[2] PRN medications PRN Medications[3] DATA I personally reviewed relevant lab and radiology results including: CBC, CMP, coags, MRCP 03/04/25 Labs Lab Results Component Value Date WBC 13.6 (H) 03/04/2025 HGB 13.6 03/04/2025 HCT 40.8 (L) 03/04/2025 MCV 85 03/04/2025 PLT 187 03/04/2025 Lab Results Component Value Date GLUCOSE 105 (H) 03/04/2025 CALCIUM 8.7 03/04/2025 NA 135 (L) 03/04/2025 K 2.9 (LL) 03/04/2025 CO2 26 03/04/2025 CL 100 03/04/2025 BUN 15 03/04/2025 CREATININE 0.97 03/04/2025 Lab Results Component Value Date ALT 168 (H) 03/04/2025 AST 50 (H) 03/04/2025 ALKPHOS 102 03/04/2025 BILITOT 11.3 (H) 03/04/2025 No results found for: IRON , TIBC , FERRITIN Lab Results Component Value Date INR 1.2 (H) 03/04/2025 PROTIME 13.2 (H) 03/04/2025 Radiology MRCP 03/03/2025 noting: IMPRESSION: 1. Slightly edematous appearance of the pancreas with some peripancreatic fat stranding and mesenteric edema, with findings favoring acute interstitial pancreatitis, please correlate clinically. No evidence for necrosis or developing peripancreatic collection. Normal caliber main pancreatic duct. 2. Cholelithiasis. Question mild wall thickening of the gallbladder. Please correlate clinically to exclude acute cholecystitis. 3. Mild hepatomegaly with fatty infiltration of the liver. Prominent portacaval lymph node may be reactive. 4. Renal cysts. Signed by: Corry Mobley 03/04/2025 9:32 AM Dictation workstation: [id number] Assessment Fab Peace Jr. is a 64 y.o. male with PMH of CAD, HTN, HLD, prediabetes, metabolic syndrome, GERD, HH, diverticulosis, obesity, umbilical herniorrhaphy presenting from [facility] for abnormal LFTs, elevated lipase, abdominal discomfort. MRCP noting cholelithiasis, no biliary dilation or filling defects. # c/f gallstone pancreatitis # transaminitis/ hyperbilirubinemia # abdominal pain # N/V- resolved # GERD Plan: - continue supportive care - ok for clear liquids as tolerated - continue fluid hydration - continue analgesics and antiemetics as needed - continue to trend liver enzymes daily - pt will follow up with surgery near [place] for elective cholecystectomy - will hold off on ERCP and trend liver enzymes, likely a passed stone given MRCP findings of no biliary dilation, no evidence of choledocholithiasis Plan has been discussed with Dr. Silva. GI will continue to follow. Hope Angulo APRN/INDIA [1] pantoprazole, 40 mg, oral, Daily before breakfast piperacillin-tazobactam, 3.375 g, intravenous, q8h [Held by provider] valsartan 160 mg, hydroCHLOROthiazide 12.5 mg for Diovan HCT, , oral, Daily [2] potassium chloride in 0.9%NaCl, 100 mL/hr, Last Rate: 100 mL/hr (03/04/25 1241) [3] PRN medications: HYDROmorphone, HYDROmorphone, melatonin, [DISCONTINUED] ondansetron ODT ORondansetron, polyethylene glycol * LIDIA Rodriguez - 03/04/2025 12:18 PM EST Pt is showing as self-pay. SW reached out to [employer]. They have confirmed that Pt has Medicare A and B.Pt for return home at discharge. LIDIA Rodriguez * Rahul Mello MD - 03/04/2025 11:13 AM EST Fab Peace Jr. is a 64 y.o. male on day 1 of admission presenting with Biliary obstruction. Subjective Patient doing well. in room and all questions answered, results reviewed. Patient tolerated CLD without issues but feels like not ready for solid food yet as he is afraid food would not pass hisstomach. Objective Last Recorded Vitals BP 120/75 (BP Location: Left arm, Patient Position: Lying) Pulse 70 Temp 36 ??C (96.8 ??F) (Temporal) Resp 20 Wt 141 kg (310 lb) SpO2 95% Intake/Output last 3 Shifts: Intake/Output Summary (Last 24 hours) at 03/04/2025 1113 Last data filed at 03/04/2025 0830 Gross per 24 hour Intake 3125 ml Output -- Net 3125 ml Admission Weight Weight: 141 kg (310 lb) (03/03/25 0359) Daily Weight 03/03/25 : 141 kg (310 lb) Image Results MRCP pancreas w and wo IV contrast Narrative: Interpreted By: Corry Mobley, STUDY: MRCP PANCREAS W AND WO IV CONTRAST; 03/03/2025 9:41 am INDICATION: Signs/Symptoms:obstructive pattern to LFTs, jaundice. COMPARISON: No prior relevant studies for comparison ACCESSION NUMBER(S): [id number] ORDERING CLINICIAN: CARLY PRAKASH TECHNIQUE: MRI PANCREAS; Multiplanar magnetic resonance images of the abdomen were obtained including the following sequences; T2-weighted SSFSE with and without fat saturation, T1-weighted GRE in/opposed phase, DWI, fat saturated 3D-T1w GRE pre and dynamically post contrast. Radial thick slab T2w RARE MRCP and coronally reconstructed navigator gated high resolution 3-D T2w RESTORE MRCP with MIP reconstruction were also performed for MRCP. 30 ml of Gadolinium contrast agent Dotarem were administered intravenously without immediate complication. The study was performed on a 1.5 Swati GE magnet. FINDINGS: LIVER: The liver is mildly enlarged, 17.5 cm. The capsule is smooth. There is signal drop on out of phase imaging compatible with fatty infiltration. Some wedge-shaped and nodular peripheral areas of early arterial enhancement become isointense to background liver on the portal venous phase, likely areas of transient altered perfusion. No suspicious liver lesions. Signal voids along the dome may be calcifications. BILE DUCTS: Normal caliber intrahepatic and extrahepatic bile ducts. No peribiliary enhancement or filling defect. GALLBLADDER: The gallbladder contains multiple layering gallstones, questionably with some mild wall thickening. No significant pericholecystic fluid. PANCREAS: There is fatty infiltration of the pancreatic parenchyma. Normal caliber main pancreatic duct. No pancreas divisum. Focal pancreatic lesion seen. The pancreatic parenchyma appears slightly edematous with some mild peripancreatic fat infiltration, no drainable collection. Postcontrast enhancement is homogeneous. SPLEEN: Mildly enlarged, 14.5 cm. No focal lesion. ADRENAL GLANDS: No nodules. KIDNEYS: No right or left hydronephrosis or suspicious renal cortical lesion. There are bilateral small cortical and parapelvic cysts. LYMPH NODES: Prominent portacaval node measures 2.9 x 1.7 cm in long and short axis, probably reactive. No upper abdominal adenopathy by size criteria. ABDOMINAL VESSELS: The hepatic veins and portal veins are patent with patent appearing superior mesenteric and splenic veins. Normal caliber IVC and abdominal aorta. Grossly patent appearing celiac axis, superior mesenteric, and inferior mesenteric arteries. BOWEL: There is a small sliding-type hiatal hernia. Nondistended stomach and decompressed duodenum appear unremarkable. Visualized large and small bowel loops are nondilated. PERITONEUM/RETROPERITONEUM: There is no ascites or pneumoperitoneum, and no drainable collection or focal retroperitoneal lesion is seen. There is some mild peripancreatic and upper mesenteric fat stranding. BONES AND LOWER THORAX: Degenerative changes are seen along the thoracic and lumbar spine. There is slight leftward mid lumbar curvature. No destructive bony lesion or acute bony abnormality is seen. Heart size is upper normal, no pericardial or pleural effusion. Impression: 1. Slightly edematous appearance of the pancreas with some peripancreatic fat stranding and mesenteric edema, with findings favoring acute interstitial pancreatitis, please correlate clinically. No evidence for necrosis or developing peripancreatic collection. Normal caliber main pancreatic duct. 2. Cholelithiasis. Question mild wall thickening of the gallbladder. Please correlate clinically to exclude acute cholecystitis. 3. Mild hepatomegaly with fatty infiltration of the liver. Prominent portacaval lymph node may be reactive. 4. Renal cysts. Signed by: Corry Mobley 03/04/2025 9:32 AM Dictation workstation: [id number] Physical Exam Constitutional: General: He is not in acute distress. Appearance: Normal appearance. HENT: Head: Normocephalic and atraumatic. Mouth/Throat: Mouth: Mucous membranes are moist. Eyes: Extraocular Movements: Extraocular movements intact. Conjunctiva/sclera: Conjunctivae normal. Cardiovascular: Rate and Rhythm: Normal rate and regular rhythm. Heart sounds: Normal heart sounds. Pulmonary: Effort: Pulmonary effort is normal. Breath sounds: Normal breath sounds. No wheezing, rhonchi or rales. Abdominal: General: Abdomen is flat. Bowel sounds are normal. There is no distension. Palpations: Abdomen is soft. Tenderness: There is no abdominal tenderness. Musculoskeletal: General: No swelling or tenderness. Normal range of motion. Cervical back: Normal range of motion and neck supple. Skin: General: Skin is warm and dry. Findings: No rash. Neurological: General: No focal deficit present. Mental Status: He is alert and oriented to person, place, and time. Cranial Nerves: No cranial nerve deficit. Sensory: No sensory deficit. Psychiatric: Mood and Affect: Mood normal. Behavior: Behavior normal. Relevant Results Scheduled medications Scheduled Medications[1] Continuous medications Continuous Medications[2] PRN medications PRN Medications[3] Results for orders placed or performed during the hospital encounter of 03/03/25 (from the past 24 hours) Comprehensive Metabolic Panel Result Value Ref Range Glucose 105 (H) 74 - 99 mg/dL Sodium 135 (L) 136 - 145 mmol/L Potassium 2.9 (LL) 3.5 - 5.3 mmol/L Chloride 100 98 - 107 mmol/L Bicarbonate 26 21 - 32 mmol/L Anion Gap 12 10 - 20 mmol/L Urea Nitrogen 15 6 - 23 mg/dL Creatinine 0.97 0.50 - 1.30 mg/dL eGFR 87 >60 mL/min/1.73m*2 Calcium 8.7 8.6 - 10.3 mg/dL Albumin 3.2 (L) 3.4 - 5.0 g/dL Alkaline Phosphatase 102 33 - 136 U/L Total Protein 5.2 (L) 6.4 - 8.2 g/dL AST 50 (H) 9 - 39 U/L Bilirubin, Total 11.3 (H) 0.0 - 1.2 mg/dL ALT 168 (H) 10 - 52 U/L Magnesium Result Value Ref Range Magnesium 1.70 1.60 - 2.40 mg/dL Protime-INR Result Value Ref Range Protime 13.2 (H) 9.8 - 12.4 seconds INR 1.2 (H) 0.9 - 1.1 CBC Result Value Ref Range WBC 13.6 (H) 4.4 - 11.3 x10*3/uL nRBC 0.0 0.0 - 0.0 /100 WBCs RBC 4.82 4.50 - 5.90 x10*6/uL Hemoglobin 13.6 13.5 - 17.5 g/dL Hematocrit 40.8 (L) 41.0 - 52.0 % MCV 85 80 - 100 fL MCH 28.2 26.0 - 34.0 pg MCHC 33.3 32.0 - 36.0 g/dL RDW 13.9 11.5 - 14.5 % Platelets 187 150 - 450 x10*3/uL MRCP pancreas w and wo IV contrast Result Date: 03/04/2025 Interpreted By: Corry Mobley, STUDY: MRCP PANCREAS W AND WO IV CONTRAST; 03/03/2025 9:41 am INDICATION: Signs/Symptoms:obstructive pattern to LFTs, jaundice. COMPARISON: No prior relevant studies for comparison ACCESSION NUMBER(S): [id number] ORDERING CLINICIAN: CARLY PRAKASH TECHNIQUE: MRI MCMAHON CREAS; Multiplanar magnetic resonance images of the abdomen were obtained including the following sequences; T2-weighted SSFSE with and without fat saturation, T1-weighted GRE in/opposed phase, DWI, fat saturated 3D-T1w GRE pre and dynamically post contrast. Radial thick slab T2w RARE MRCP and coronally reconstructed navigator gated high resolution 3-D T2w RESTORE MRCP with MIP reconstruction were also performed for MRCP. 30 ml of Gadolinium contrast agent Dotarem were administered intravenously without immediate complication. The study was performed on a 1.5 Swati U[employer] magnet. FINDINGS: LIVER:The liver is mildly enlarged, 17.5 cm. The capsule is smooth. There is signal drop on out of phase imaging compatible with fatty infiltration. Some wedge-shaped and nodular peripheral areas of early arterial enhancement become isointense to background liver on the portal venous phase, likely areas of transient altered perfusion. No suspicious liver lesions. Signal voids along the dome may be calcifications. BILE DUCTS: Normal caliber intrahepatic and extrahepatic bile ducts. No peribiliary enhancement or filling defect. GALLBLADDER: The gallbladder contains multiple layering gallstones, questionably with some mild wall thickening. No significant pericholecystic fluid. PANCREAS: There is fatty infiltration of the pancreatic parenchyma. Normal caliber main pancreatic duct. No pancreas divisum. Focal pancreatic lesion seen. The pancreatic parenchyma appears slightly edematous with some mild peripancreatic fat infiltration, no drainable collection. Postcontrast enhancement is homogeneous.SPLEEN: Mildly enlarged, 14.5 cm. No focal lesion. ADRENAL GLANDS: No nodules. KIDNEYS: No right orleft hydronephrosis or suspicious renal cortical lesion. There are bilateral small cortical and parapelvic cysts. LYMPH NODES: Prominent portacaval node measures 2.9 x 1.7 cm in long and short axis, probably reactive. No upper abdominal adenopathy by size criteria. ABDOMINAL VESSELS: The hepatic veins and portal veins are patent with patent appearing superior mesenteric and splenic veins. Normal caliber IVC and abdominal aorta. Grossly patent appearing celiac axis, superior mesenteric, and inferior mesenteric arteries. BOWEL: There is a small sliding-type hiatal hernia. Nondistended stomach and decompressed duodenum appear unremarkable. Visualized large and small bowel loops are nondilated. PERITONEUM/RETROPERITONEUM: There is no ascites or pneumoperitoneum, and no drainable collection orfocal retroperitoneal lesion is seen. There is some mild peripancreatic and upper mesenteric fat stranding. BONES AND LOWER THORAX: Degenerative changes are seen along the thoracic and lumbar spine. There is slight leftward mid lumbar curvature. No destructive bony lesion or acute bony abnormality is seen. Heart size is upper normal, no pericardial or pleural effusion. 1. Slightly edematous appearance of the pancreas with some peripancreatic fat stranding and mesenteric edema, with findings favoring acute interstitial pancreatitis, please correlate clinically. No evidence for necrosis or developing peripancreatic collection. Normal caliber main pancreatic duct. 2. Cholelithiasis. Question mild wall thickening of the gallbladder. Please correlate clinically to exclude acute cholecystitis. 3. Mild hepatomegaly with fatty infiltration of the liver. Prominent portacaval lymph node may be reactive. 4. Renal cysts. Signed by: Corry Mobley 03/04/2025 9:32 AM Dictation workstation: [id number] Assessment & Plan Biliary obstruction Jaundice Elevated liver function tests Acute pancreatitis ([facility]) - patient with obstructive jaundice - t bili uptrending - MRCP showing pancreatitis and mild gallbladder wall thickening; no mention of CBD obstruction - continue zosyn for cholangitis ppx - dilaudid PRN pain - continue IVF - GI consulted; awaiting plan Code: full DVT PPX: low risk; [facility] PPX: not indicated Diet: NPO for possible intervention Dispo: possible DC in next 24-48 hours pending ERCP and improvement in LFTs/bilirubin Rahul Mello MD [1] pantoprazole, 40 mg, oral, Daily before breakfast piperacillin-tazobactam, 3.375 g, intravenous, q8h [Held by provider] valsartan 160 mg, hydroCHLOROthiazide 12.5 mg for Diovan HCT, , oral, Daily [2] D5 % and 0.9 % sodium chloride, 100 mL/hr, Last Rate: 100 mL/hr (03/04/25921) [3] PRN medications: acetaminophen, HYDROmorphone, HYDROmorphone, melatonin, [DISCONTINUED] ondansetron ODT OR ondansetron, polyethylene glycol * Esequiel Beckwith RN - 03/03/2025 12:49 PM EST 03/03/25 1248 Discharge Planning Living Arrangements Spouse/significant other Support Systems Spouse/significant other Assistance Needed independent Type of Residence Private residence Do you have animals or pets at home? Yes Type of Animals or Pets dogs Home or Post Acute Services None Expected Discharge Disposition Home Does the patient need discharge transport arranged? No Financial Resource Strain How hard is it for you to pay for the very basics like food, housing, medical care, and heating? Not hard Housing Stability In the last 12 months, was there a time when you were not able to pay the mortgage or rent on time?N At any time in the past 12 months, were you homeless or living in a longterm (including now)? N Transportation Needs In the past 12 months, has lack of transportation kept you from medical appointments or from getting medications? no In the past 12 months, has lack of transportation kept you from meetings, work, or from getting things needed for daily living? No Stroke Family Assessment Stroke Family Assessment Needed No Intensity of Service Intensity of Service 0-30 min Met with patient at the bedside, confirmed demographics, insurance, and pcp is Dr. Mahajan. He is independent with his care need, and his is available to assist if needed. He denies financial concerns, able to purchase medications and daily expenses. He has received medication teaching and takes as ordered. He will discharge home no additional needs pending the treatment plan while in the hospital. documented in this encounter H&P Notes * Carly Prakash, DO - 03/03/2025 6:02 AM EST History Of Present Illness Fab Peace Jr. is a 64 y.o. male presenting with right upper quadrant abdominal pain ongoing forthe last 72 hours. His has endorsed worsening scleral icterus/jaundice which prompted evaluation in the emergency department. Initial blood work noted leukocytosis as well as hyperbilirubinemia with a total bilirubin of 11 and a direct bilirubin of 7. Imaging obtained at that time showed mild dilation of the common bile duct with right upper quadrant ultrasound not necessarily identifying that same dilation. Lipase was elevated at 2800. Concern for gallstone pancreatitis. Patient was started on IV Zosyn with concern for possible cholangitis. Transferred to this facility for MRCP/ERCP andevaluation by advanced GI service. Past Medical History Medical History[1] Surgical History Surgical History[2] Social History He reports that he has never smoked. He has never used smokeless tobacco. He reports current alcohol use. He reports that he does not use drugs. Family History Family History[3] Allergies Patient has no known allergies. Review of Systems Gastrointestinal: Positive for abdominal pain. Physical Exam Vitals reviewed. Constitutional: Appearance: Normal appearance. HENT: Head: Normocephalic and atraumatic. Nose: Nose normal. Mouth/Throat: Mouth: Mucous membranes are moist. Eyes: General: Scleral icterus present. Extraocular Movements: Extraocular movements intact. Conjunctiva/sclera: Conjunctivae normal. Pupils: Pupils are equal, round, and reactive to light. Cardiovascular: Rate and Rhythm: Normal rate and regular rhythm. Pulses: Normal pulses. Heart sounds: Normal heart sounds. Pulmonary: Effort: Pulmonary effort is normal. Breath sounds: Normal breath sounds. Abdominal: General: Bowel sounds are normal. Palpations: Abdomen is soft. Musculoskeletal: General: Normal range of motion. Cervical back: Normal range of motion and neck supple. Skin: General: Skin is warm and dry. Coloration: Skin is jaundiced. Neurological: General: No focal deficit present. Mental Status: He is alert. Mental status is at baseline. Psychiatric: Mood and Affect: Mood normal. Behavior: Behavior normal. Last Recorded Vitals Blood pressure 92/57, pulse 78, temperature 36.8 ??C (98.2 ??F), temperature source Temporal, resp.rate 16, height 1.676 m (5' 6 ), weight 141 kg (310 lb), SpO2 97%. Relevant Results Scheduled medications Scheduled Medications[4] Continuous medications Continuous Medications[5] PRN medications PRN Medications[6] No results found. Results for orders placed or performed during the hospital encounter of 03/03/25 (from the past 24 hours) CBC Result Value Ref Range WBC 15.8 (H) 4.4 - 11.3 x10*3/uL nRBC 0.0 0.0 - 0.0 /100 WBCs RBC 5.20 4.50 - 5.90 x10*6/uL Hemoglobin 14.7 13.5 - 17.5 g/dL Hematocrit 44.0 41.0 - 52.0 % MCV 85 80 - 100 fL MCH 28.3 26.0 - 34.0 pg MCHC 33.4 32.0 - 36.0 g/dL RDW 13.8 11.5 - 14.5 % Platelets 178 150 - 450 x10*3/uL Comprehensive metabolic panel Result Value Ref Range Glucose 113 (H) 74 - 99 mg/dL Sodium 134 (L) 136 - 145 mmol/L Potassium 3.2 (L) 3.5 - 5.3 mmol/L Chloride 100 98 - 107 mmol/L Bicarbonate 24 21 - 32 mmol/L Anion Gap 13 10 - 20 mmol/L Urea Nitrogen 15 6 - 23 mg/dL Creatinine 1.01 0.50 - 1.30 mg/dL eGFR 83 >60 mL/min/1.73m*2 Calcium 8.5 (L) 8.6 - 10.3 mg/dL Albumin 3.6 3.4 - 5.0 g/dL Alkaline Phosphatase 117 33 - 136 U/L Total Protein 5.5 (L) 6.4 - 8.2 g/dL AST 85 (H) 9 - 39 U/L Bilirubin, Total 10.0 (H) 0.0 - 1.2 mg/dL ALT 281 (H) 10 - 52 U/L Assessment & Plan Biliary obstruction Jaundice Elevated liver function tests Acute pancreatitis (HHS-HCC) - Patient presenting to this facility due to the development of scleral icterus/jaundice with laboratory studies obtained at outside facility consistent with biliary obstruction. Imaging studies including right upper quadrant ultrasound and CT abdomen/pelvis have provided conflicting results however there is high suspicion for gallstone induced obstruction with subsequent pancreatitis - MRCP to be obtained upon arrival to this facility. Advanced GI service to be placed on consult. Pending the results of the study, anticipate possible ERCP within 24 hours of admission - To continue Zosyn at this time with concern for cholangitis - Morphine has been ordered for pain control, 2 versus 4 mg per pain level is reported - Normal saline at 100 cc/h x 10 hours followed by reassessment - Patient will be n.p.o. at 5 AM pending evaluation by advanced GI service - Obtain repeat liver function studies in a.m. I spent >75 minutes in the professional and overall care of this patient. Carly Prakash DO [1] Past Medical History: Diagnosis Date Cardiomegaly Cholelithiasis Chronic back pain Chronic constipation Coronary artery disease Diverticulosis Elevated PSA Gastroesophageal reflux disease Hearing loss Hepatic steatosis Hepatomegaly History of bacterial pneumonia History of COVID-19 Hyperlipidemia Hypertension Metabolic syndrome Microscopic hematuria Obesity, morbid, BMI 40.0-49.9 (Multi) Obstructive sleep apnea on CPAP Osteoarthritis Peripheral vascular disease Prediabetes Pulmonary nodule Umbilical hernia Varicose veins of both lower extremities [2] Past Surgical History: Procedure Laterality Date COLONOSCOPY FINGER SURGERY HERNIA REPAIR KNEE CARTILAGE SURGERY Left LUMBAR DISCECTOMY MANDIBLE SURGERY VARICOSE VEIN SURGERY VASECTOMY WISDOM TOOTH EXTRACTION [3] Family History Problem Relation Name Age of Onset Hypertension Mother Diabetes Mother Hypertension Father [4] piperacillin-tazobactam, 3.375 g, intravenous, q8h [5] lactated Ringer's, 150 mL/hr [6] PRN medications: acetaminophen OR acetaminophen OR acetaminophen, HYDROmorphone, HYDROmorphone, melatonin, [DISCONTINUED] ondansetron ODT OR ondansetron, polyethylene glycol documented in this encounter Consult Notes * Steven Baldwinkota, DO - 03/03/2025 8:51 AM ESTAssociated Order(s): IP CONSULT TO GASTROENTEROLOGY Reason for Consult: Abnormal LFTs, elevated lipase, abdominal pain. History of Present Illness: Fab Peace Jr. is a 64 y.o. male with a PMH of CAD, HTN, HLD, prediabetes, metabolic syndrome, GERD, HH, diverticulosis, obesity, umbilical herniorrhaphy who presented as a transfer from [facility] [place] for abnormal LFTs, elevated lipase, and abdominal pain and in whom we are consulted for further management. Patient reports that he presented with upper abdominal pain. No other GI complaints, he is hungry. Occasional alcohol use. No tobacco use. No family history of GI malignancy. Review of Systems ROS Negative unless otherwise stated above. Past Medical History has a past medical history of Cardiomegaly, Cholelithiasis, Chronic back pain, Chronic constipation, Coronary artery disease, Diverticulosis, Elevated PSA, Gastroesophageal reflux disease, Hearing loss, Hepatic steatosis, Hepatomegaly, History of bacterial pneumonia, History of COVID-19, Hyperlipidemia, Hypertension, Metabolic syndrome, Microscopic hematuria, Obesity, morbid, BMI 40.0-49.9 (Multi), Obstructive sleep apnea on CPAP, Osteoarthritis, Peripheral vascular disease, Prediabetes, Pulmonary nodule, Umbilical hernia, and Varicose veins of both lower extremities. Social History reports that he has never smoked. He has never used smokeless tobacco. He reports current alcohol use. He reports that he does not use drugs. Family History family history includes Diabetes in his mother; Hypertension in his father and mother. Allergies RX Allergies[1] Medications No current outpatient medications Objective Visit Vitals BP 121/77 (BP Location: Right arm, Patient Position: Lying) Pulse 88 Temp 37.1 ??C (98.8 ??F) (Temporal) Resp 16 General: A&Ox3, NAD. HEENT: AT/NC. Scleral icterus. CV: RRR. No murmur. Resp: CTA bilaterally. No wheezing, rhonchi or rales. GI: Soft, NT/ND. Extrem: No edema. Pulses intact. Skin: + Jaundice. Neuro: No focal deficits. Psych: Normal mood and affect. Results from last 7 days Lab Units 03/03/25 0541 WBC AUTO x10*3/uL 15.8* HEMOGLOBIN g/dL 14.7 HEMATOCRIT % 44.0 PLATELETS AUTO x10*3/uL 178 Results from last 7 days Lab Units 03/03/25 0541 SODIUM mmol/L 134* POTASSIUM mmol/L 3.2* CHLORIDE mmol/L 100 CO2 mmol/L 24 BUN mg/dL 15 CREATININE mg/dL 1.01 CALCIUM mg/dL 8.5* PROTEIN TOTAL g/dL 5.5* BILIRUBIN TOTAL mg/dL 10.0* ALK PHOS U/L 117 ALT U/L 281* AST U/L 85* GLUCOSE mg/dL 113* ASSESSMENT/PLAN: Fab Peace Jr. is a 64 y.o. male with a PMH of CAD, HTN, HLD, prediabetes, metabolic syndrome, GERD, HH, diverticulosis, obesity, umbilical herniorrhaphy who presented as a transfer from [facility] [place] for abnormal LFTs, elevated lipase, and abdominal pain and in whom we are consulted for further management. Consider gallstone pancreatitis vs other pancreatic pathology. Patient is afebrile, HDS. Mild leukocytosis. LFTs: 85, 281, 117, 10. Lipase: 2800. -Clear liquid diet. IVF. -Trend LFTs/BMP (not CMP). -MRCP. Carlton Silva DO GI Attending [1] No Known Allergies documented in this encounter Nursing Notes * Angela Rivero LPN - 03/06/2025 11:12 AM EST ADOD: 03/06. Destination: home Transportation Provided by: Family Member Patient feels updated by provider(s) and involved in POC. Patient has been advised to defer to [facility] for new medications and follow-up visits. Patient is inactive with [facility]. Patient's Pharmacy [facility]. Appointments will be made by patient. Patient has been notified about a survey and call back is to be expected 1-2 weeks post discharge. Notified patient that DC Nurse is available everyday throughout their stay if any assistance is needed. Patient ordered diet, pending toleration plan for DC Home 1230-1p [facility] delivered en route (hour away) for picker and sorter load and unload 1pm IVL Dc'd, site clear Reviewed AVS with patient, all questions answered * Ely Campos RN - 03/06/2025 9:36 AM EST 0935 GI at bedside updating pt and on POC. Educated on pancreatitis and diet. Pt Bili improving. Pt to possibly discharge today. Pt up independently in room. Pt refusing bed alarm. 1200 pt tolerated diet w/o issue. IV removed. Discharge instructions reviewed , pt and sts understanding. * Randa Medina RN - 03/04/2025 5:34 AM EST Shift note - patient admitted with biliary obstruction. MRCP completed and patient NPO for possibleERCP. Abdomen rounded but soft. Bowel sounds present in all quadrants. No BM this shift. Patient was medicated with PRN Dilaudid for abdominal pain, which improved within an hour of each administration. The patient rested quietly overnight. His vitals were stable and call light in reach. Comfort/safety rounds completed. * Darryn Valencia RN - 03/03/2025 1:19 AM EST Patient arrived to the unit around 01:10 am. documented in this encounter Miscellaneous Notes * Care Plan - Ely Campos RN - 03/06/2025 10:19 AM EST The patient's goals for the shift include The clinical goals for the shift include pt will tolerate diet this shift Over the shift, the patient did make progress toward the following goals. * Care Plan - Kala Mayen RN - 03/06/2025 6:29 AM EST The patient's goals for the shift include The clinical goals for the shift include pt will have no c/o pain abd pain or nausea this shift Goals progressing, safety maintained. Pt remains NPO for possible EUS today, pending AM labs. Denies pain or nausea. * Assessment & Plan Note - Rahul Mello MD - 03/05/2025 11:57 AM EST Associated Problem(s): Biliary obstruction - patient with obstructive jaundice - t bili remains elevated; direct = 7.6 - MRCP showing pancreatitis and mild gallbladder wall thickening; no mention of CBD obstruction/mass/stricture - continue zosyn for cholangitis ppx - dilaudid PRN pain - GI consulted; bilirubin elevation without significant ALP elevation somewhat contradictory; if LFTs remain elevated tomorrow plan for EUS with Dr. Reinoso; in the meantime ok to trial fat restricteddiet today; NPO after midnight * Assessment & Plan Note - Rahul Mello MD - 03/05/2025 11:57 AM EST Associated Problem(s): Jaundice - patient with obstructive jaundice - t bili remains elevated; direct = 7.6 - MRCP showing pancreatitis and mild gallbladder wall thickening; no mention of CBD obstruction/mass/stricture - continue zosyn for cholangitis ppx - dilaudid PRN pain - GI consulted; bilirubin elevation without significant ALP elevation somewhat contradictory; if LFTs remain elevated tomorrow plan for EUS with Dr. Reinoso; in the meantime ok to trial fat restricteddiet today; NPO after midnight * Assessment & Plan Note - Rahul Mello MD - 03/05/2025 11:57 AM EST Associated Problem(s): Elevated liver function tests - patient with obstructive jaundice - t bili remains elevated; direct = 7.6 - MRCP showing pancreatitis and mild gallbladder wall thickening; no mention of CBD obstruction/mass/stricture - continue zosyn for cholangitis ppx - dilaudid PRN pain - GI consulted; bilirubin elevation without significant ALP elevation somewhat contradictory; if LFTs remain elevated tomorrow plan for EUS with Dr. Reinoso; in the meantime ok to trial fat restricteddiet today; NPO after midnight * Assessment & Plan Note - Rahul Mello MD - 03/05/2025 11:57 AM EST Associated Problem(s): Acute pancreatitis (HHS-HCC) - patient with obstructive jaundice - t bili remains elevated; direct = 7.6 - MRCP showing pancreatitis and mild gallbladder wall thickening; no mention of CBD obstruction/mass/stricture - continue zosyn for cholangitis ppx - dilaudid PRN pain - GI consulted; bilirubin elevation without significant ALP elevation somewhat contradictory; if LFTs remain elevated tomorrow plan for EUS with Dr. Reinoso; in the meantime ok to trial fat restricteddiet today; NPO after midnight * Care Plan - Makayla Mejia RN - 03/05/2025 9:44 AM EST Problem: Pain - Adult Goal: Verbalizes/displays adequate comfort level or baseline comfort level Outcome: Progressing Problem: Safety - Adult Goal: Free from fall injury Outcome: Progressing Problem: Discharge Planning Goal: Discharge to home or other facility with appropriate resources Outcome: Progressing Problem: Chronic Conditions and Co-morbidities Goal: Patient's chronic conditions and co-morbidity symptoms are monitored and maintained or improved Outcome: Progressing Problem: Nutrition Goal: Nutrient intake appropriate for maintaining nutritional needs Outcome: Progressing Problem: Pain Goal: Walks with improved pain control throughout the shift Outcome: Progressing Goal: Performs ADL's with improved pain control throughout shift Outcome: Progressing Goal: Free from opioid side effects throughout the shift Outcome: Progressing Goal: Free from acute confusion related to pain meds throughout the shift Outcome: Progressing EOS: No acute events occurred and safety was maintained. Pt tolerated PO intake this shift. Pt aware of plan to be NPO after midnight for possible EUS. Pt resting in chair with fluids and antibioticsrunning. Call light within reach. * Care Plan - Quin Diaz LPN - 03/05/2025 12:21 AM EST The patient's goals for the shift include adequate rest The clinical goals for the shift include decreased abdominal pain/ discomfort throughout shift * Care Plan - Malorie Benitez RN - 03/04/2025 5:31 PM EST The patient's goals for the shift include The clinical goals for the shift include see care plan Problem: Pain - Adult Goal: Verbalizes/displays adequate comfort level or baseline comfort level Outcome: Progressing Problem: Safety - Adult Goal: Free from fall injury Outcome: Progressing Problem: Discharge Planning Goal: Discharge to home or other facility with appropriate resources Outcome: Progressing Problem: Chronic Conditions and Co-morbidities Goal: Patient's chronic conditions and co-morbidity symptoms are monitored and maintained or improved Outcome: Progressing Problem: Nutrition Goal: Nutrient intake appropriate for maintaining nutritional needs Outcome: Progressing Problem: Pain Goal: Walks with improved pain control throughout the shift Outcome: Progressing Goal: Performs ADL's with improved pain control throughout shift Outcome: Progressing Goal: Free from opioid side effects throughout the shift Outcome: Progressing Goal: Free from acute confusion related to pain meds throughout the shift Outcome: Progressing EOS note: Pt oriented x4 and independent in the room. Dilaudid given for pain, patient reports relief. Continues to receive Zosyn. Advanced to CLD and tolerating well. No ERCP to be done at this time, awaiting repeat lab work tomorrow morning. VSS. Will return home upon discharge Pt resting at this time. Bed is in lowest position and locked with alarm on. Call light and personal possesions are within reach. * Assessment & Plan Note - Rahul Mello MD - 03/04/2025 11:17 AM EST Associated Problem(s): Elevated liver function tests - patient with obstructive jaundice - t bili uptrending - MRCP showing pancreatitis and mild gallbladder wall thickening; no mention of CBD obstruction - continue zosyn for cholangitis ppx - dilaudid PRN pain - continue IVF - GI consulted; awaiting plan * Assessment & Plan Note - Rahul Mello MD - 03/04/2025 11:17 AM EST Associated Problem(s): Acute pancreatitis ([facility]HS-HCC) - patient with obstructive jaundice - t bili uptrending - MRCP showing pancreatitis and mild gallbladder wall thickening; no mention of CBD obstruction - continue zosyn for cholangitis ppx - dilaudid PRN pain - continue IVF - GI consulted; awaiting plan * Assessment & Plan Note - Rahul Mello MD - 03/04/2025 11:17 AM EST Associated Problem(s): Biliary obstruction - patient with obstructive jaundice - t bili uptrending - MRCP showing pancreatitis and mild gallbladder wall thickening; no mention of CBD obstruction - continue zosyn for cholangitis ppx - dilaudid PRN pain - continue IVF - GI consulted; awaiting plan * Assessment & Plan Note - Rahul Mello MD - 03/04/2025 11:17 AM EST Associated Problem(s): Jaundice - patient with obstructive jaundice - t bili uptrending - MRCP showing pancreatitis and mild gallbladder wall thickening; no mention of CBD obstruction - continue zosyn for cholangitis ppx - dilaudid PRN pain - continue IVF - GI consulted; awaiting plan * Care Plan - Randa Medina RN - 03/04/2025 5:34 AM EST Problem: Pain - Adult Goal: Verbalizes/displays adequate comfort level or baseline comfort level Outcome: Progressing Problem: Safety - Adult Goal: Free from fall injury Outcome: Progressing The patient's goals for the shift include rest quietly overnight. The clinical goals for the shift include remain hemodynamically stable. * Care Plan - David Valles RN - 03/03/2025 9:47 AM EST Problem: Pain - Adult Goal: Verbalizes/displays adequate comfort level or baseline comfort level Outcome: Progressing Problem: Safety - Adult Goal: Free from fall injury Outcome: Progressing Problem: Chronic Conditions and Co-morbidities Goal: Patient's chronic conditions and co-morbidity symptoms are monitored and maintained or improved Outcome: Progressing Problem: Nutrition Goal: Nutrient intake appropriate for maintaining nutritional needs Outcome: Progressing * Care Plan - Darryn Valencia RN - 03/03/2025 6:51 AM EST The patient's goals for the shift include The clinical goals for the shift include See plan of care Over the shift, the patient alert and oriented x 4. Slept well,safety maintained. Problem: Safety - Adult Goal: Free from fall injury Outcome: Progressing Problem: Pain - Adult Goal: Verbalizes/displays adequate comfort level or baseline comfort level Outcome: Progressing * Assessment & Plan Note - Carly Prakash DO - 03/03/2025 6:09 AM EST Associated Problem(s): Biliary obstruction - Patient presenting to this facility due to the development of scleral icterus/jaundice with laboratory studies obtained at outside facility consistent with biliary obstruction. Imaging studies including right upper quadrant ultrasound and CT abdomen/pelvis have provided conflicting results however there is high suspicion for gallstone induced obstruction with subsequent pancreatitis - MRCP to be obtained upon arrival to this facility. Advanced GI service to be placed on consult. Pending the results of the study, anticipate possible ERCP within 24 hours of admission - To continue Zosyn at this time with concern for cholangitis - Morphine has been ordered for pain control, 2 versus 4 mg per pain level is reported - Normal saline at 100 cc/h x 10 hours followed by reassessment - Patient will be n.p.o. at 5 AM pending evaluation by advanced GI service - Obtain repeat liver function studies in a.m. * Assessment & Plan Note - Carly Prakash DO - 03/03/2025 6:09 AM EST Associated Problem(s): Jaundice - Patient presenting to this facility due to the development of scleral icterus/jaundice with laboratory studies obtained at outside facility consistent with biliary obstruction. Imaging studies including right upper quadrant ultrasound and CT abdomen/pelvis have provided conflicting results however there is high suspicion for gallstone induced obstruction with subsequent pancreatitis - MRCP to be obtained upon arrival to this facility. Advanced GI service to be placed on consult. Pending the results of the study, anticipate possible ERCP within 24 hours of admission - To continue Zosyn at this time with concern for cholangitis - Morphine has been ordered for pain control, 2 versus 4 mg per pain level is reported - Normal saline at 100 cc/h x 10 hours followed by reassessment - Patient will be n.p.o. at 5 AM pending evaluation by advanced GI service - Obtain repeat liver function studies in a.m. * Assessment & Plan Note - Carly Prakash DO - 03/03/2025 6:09 AM EST Associated Problem(s): Elevated liver function tests - Patient presenting to this facility due to the development of scleral icterus/jaundice with laboratory studies obtained at outside facility consistent with biliary obstruction. Imaging studies including right upper quadrant ultrasound and CT abdomen/pelvis have provided conflicting results however there is high suspicion for gallstone induced obstruction with subsequent pancreatitis - MRCP to be obtained upon arrival to this facility. Advanced GI service to be placed on consult. Pending the results of the study, anticipate possible ERCP within 24 hours of admission - To continue Zosyn at this time with concern for cholangitis - Morphine has been ordered for pain control, 2 versus 4 mg per pain level is reported - Normal saline at 100 cc/h x 10 hours followed by reassessment - Patient will be n.p.o. at 5 AM pending evaluation by advanced GI service - Obtain repeat liver function studies in a.m. * Assessment & Plan Note - Carly Prakash DO - 03/03/2025 6:09 AM EST Associated Problem(s): Acute pancreatitis ([facility]) - Patient presenting to this facility due to the development of scleral icterus/jaundice with laboratory studies obtained at outside facility consistent with biliary obstruction. Imaging studies including right upper quadrant ultrasound and CT abdomen/pelvis have provided conflicting results however there is high suspicion for gallstone induced obstruction with subsequent pancreatitis - MRCP to be obtained upon arrival to this facility. Advanced GI service to be placed on consult. Pending the results of the study, anticipate possible ERCP within 24 hours of admission - To continue Zosyn at this time with concern for cholangitis - Morphine has been ordered for pain control, 2 versus 4 mg per pain level is reported - Normal saline at 100 cc/h x 10 hours followed by reassessment - Patient will be n.p.o. at 5 AM pending evaluation by advanced GI service - Obtain repeat liver function studies in a.m. * Significant Event - Rahul Mello MD - 03/02/2025 6:42 PM EST Hospitalist acceptance note: Patient is a 64-year-old male who presented to [facility] with 2 to 3 days of right upper quadrant abdominal pain. noticed that he has scleral icterus which prompted emergency department visit. Blood work revealed leukocytosis and hyperbilirubinemia with a total bilirubin of 11+ and a direct bilirubin of 7. CT imaging showed mild dilatation of the common bile duct. Rightupper quadrant ultrasound did not reveal dilatation however. Lipase was elevated at 2800. Patient given IV Zosyn to cover possible cholangitis. Case was discussed with gastroenterology here at [facility] and presumably patient has gallstone pancreatitis. Patient being transferred to [facility] for MRCP/ERCP. documented in this encounter Plan of Treatment NameTypePriorityAssociated DiagnosesOrder ScheduleComprehensive metabolic panel LabRoutine Acute biliary pancreatitis, unspecified complication status ([facility]) Expected: 03/13/2025 (Approximate), Expires: 03/06/2026NameTypePriority Associated DiagnosesOrder ScheduleReferral to GastroenterologyOutpatient ReferralNon-Urgent Acute biliary pancreatitis, unspecified complication status ([facility]) Elevated liver function tests Jaundice Expected: 03/06/2025 (Approximate), Expires: 03/06/2026documented as of this encounter Procedures Procedure NamePriorityDate/TimeAssociated BzpjwnuglYxwlcipuXLGSoppcdx79/10/2025 6:25 AM EST EYRYNHMCFBHztdxgz37/10/2025 6:25 AM EST MYKSTDLIJWtuvvuc66/10/2025 6:25 AM EST COMPREHENSIVE METABOLIC UNWLFGbjahvn88/10/2025 6:25 AM EST ANTI-SMOOTH MUSCLE BOFBEQGNClfdpol51/09/2025 10:02 AM EST KOXBM-9-TYVEHOOZKBFKnicxdt13/09/2025 10:02 AM EST ITWCIGBWABLRCJhlhyoe35/09/2025 10:02 AM EST HEPATITIS PANEL, SWCKXYvpqmtd73/09/2025 10:02 AM EST ANTIMITOCHONDRIAL UZJXNGKJPklahsq53/09/2025 10:02 AM EST GRANT WITHOUT REFLEX WOJPclrjyx45/09/2025 10:02 AM EST ZOTIzqczus59/09/2025 10:02 AM EST IRON AND TIBCAdd-On03/05/2025 9:57 AM EST FERRITINAdd-On03/05/2025 9:57 AM EST BILIRUBIN, DIRECTAdd-On03/05/2025 9:57 AM EST PROTIME-ACNDklnbqr51/09/2025 5:47 AM EST QIDCgclhta52/09/2025 5:47 AM EST WPRLSZCDBNYscypsi37/09/2025 5:47 AM EST BKNGOBGJYXkiiehy19/09/2025 5:47 AM EST COMPREHENSIVE METABOLIC VSIDUJftgjla82/09/2025 5:47 AM EST XXZRqngzwn18/08/2025 6:38 AM EST PROTIME-RLTYvliqnx52/08/2025 6:35 AM EST JINRIYUBKDaovjoh20/08/2025 6:35 AM EST COMPREHENSIVE METABOLIC TUJTQNtlxldq16/08/2025 6:35 AM EST MR RIK WITH PANCREAS WO AND W CONTRASTPriority Discharge or Observation 03/03/2025 9:41 AM EST YWBTvxckru74/07/2025 5:41 AM EST COMPREHENSIVE METABOLIC OULMTMmakavi71/07/2025 5:41 AM EST documented in this encounter Results * Phosphorus (03/06/2025 6:25 AM EST)ComponentValueRef RangeTest MethodAnalysis TimePerformed AtPathologist SignaturePhosphorus3.22.5 - 4.9 mg/dL LAB CHEMISTRY METHOD 03/06/2025 7:21 AM [facility] LABSpecimen (Source)Anatomical Location / LateralityCollection Method / VolumeCollection TimeReceived TimeBlood Venous blood specimen / UnknownVenipuncture / Ntdeaew4603/06/2025 6:25 AM EST 03/06/2025 6:34 AM EST Narrative Authorizing ProviderResult TypeResult StatusRahul RICHARDSON BLOOD ORDERABLESFinal ResultPerforming OrganizationAddressCity/State/ZIP [place] [address] * Magnesium (03/06/2025 6:25 AM EST)ComponentValueRef RangeTest MethodAnalysis TimePerformed AtPathologist SignatureMagnesium1.821.60 - 2.40 mg/dL LAB CHEMISTRY METHOD 03/06/2025 7:21 AM [facility] LABSpecimen (Source)Anatomical Location / LateralityCollection Method / VolumeCollection TimeReceived TimeBlood Venous blood specimen / UnknownVenipuncture / Chdwhlm7503/06/2025 6:25 AM EST 03/06/2025 6:34 AM EST Narrative Authorizing ProviderResult TypeResult StatusRahul RICHARDSON BLOOD ORDERABLESFinal ResultPerforming OrganizationAddressCity/State/ZIP CodePhone Number [facility] [id number] [place], [place] [phone] * (ABNORMAL) Comprehensive Metabolic Panel (03/06/2025 6:25 AM EST)Component ValueRef RangeTest MethodAnalysis TimePerformed AtPathologist SignatureGlucose 105(H)74 - 99 mg/dL LAB CHEMISTRY METHOD 03/06/2025 7:21 AM [facility] QDSLiyqjh054013 - 145 mmol/L LAB CHEMISTRY METHOD 03/06/2025 7:21 AM [facility] LABPotassium3.4(L)3.5 - 5.3 mmol/L LAB CHEMISTRY METHOD 03/06/2025 7:21 AM [facility] VQPVbnmhlvo56146 - 107 mmol/L LAB CHEMISTRY METHOD 03/06/2025 7:21 AM [facility] XGXMkcqynwzwom0251 - 32 mmol/L LAB CHEMISTRY METHOD 03/06/2025 7:21 AM [facility] LABComment:Bicarbonate results may be falsely elevated when Lactate Dehydrogenase (LDH) concentrations exceed 2,000 U/L due to a temporary reagent manufacturing issue. If significantly elevated LDH levels are suspected, interpret bicarbonate results with caution, correlate with the patient???s clinical status, and consider confirming CO2 values using a blood gas analyzer.Anion Ybs3773 - 20 mmol/L LAB CHEMISTRY METHOD 03/06/2025 7:21 AM [facility] LABUrea Xkyuxoya316 - 23 mg/dL LAB CHEMISTRY METHOD 03/06/2025 7:21 AM [facility] LABCreatinine0.830.50 - 1.30 mg/dL LAB CHEMISTRY METHOD 03/06/2025 7:21 AM [facility] LABeGFR>90>60 mL/min/1.73m*2 LAB CHEMISTRY METHOD 03/06/2025 7:21 AM [facility] LABComment: Calculations of estimated GFR are performed using the 2020 CKD-EPI Study Refit equation without therace variable for the IDMS-Traceable creatinine methods. https://jasn.asnjournals.org/content//ASN.2509773179 Calcium8.4(L)8.6 - 10.3 mg/dL LAB CHEMISTRY METHOD 03/06/2025 7:21 AM [facility] LABAlbumin3.0(L)3.4 - 5.0 g/dL LAB CHEMISTRY METHOD 03/06/2025 7:21 AM [facility] LABAlkaline Bhbarzhiozz56530 - 136 U/L LAB CHEMISTRY METHOD 03/06/2025 7:21 AM [facility] LABTotal Protein5.2(L)6.4 - 8.2 g/dL LAB CHEMISTRY METHOD 03/06/2025 7:21 AM [facility] EWUXHJ61(H)9 - 39 U/L LAB CHEMISTRY METHOD 03/06/2025 7:21 AM [facility] LABBilirubin, Total8.8(H)0.0 - 1.2 mg/dL LAB CHEMISTRY METHOD 03/06/2025 7:21 AM [facility] GZYHRS689(H)10 - 52 U/L LAB CHEMISTRY METHOD 03/06/2025 7:21 AM [facility] LABComment:Patients treated with Sulfasalazine may generate falsely decreased results for ALT.Specimen (Source) Anatomical Location / LateralityCollection Method / VolumeCollection Time Received TimeBloodVenous blood specimen / UnknownVenipuncture / Unknown 03/06/2025 6:25 AM EST03/06/2025 6:34 AM EST Narrative Authorizing ProviderResult TypeResult StatusRahul RICHARDSON BLOOD ORDERABLESFinal ResultPerforming OrganizationAddressCity/State/ZIP CodePhone Number [facility] [address] [place] [phone] * (ABNORMAL) CBC (03/06/2025 6:25 AM EST)ComponentValueRef RangeTest Method Analysis TimePerformed AtPathologist SignatureWBC9.84.4 - 11.3 x10*3/uL LAB HEMATOLOGY METHOD 03/06/2025 6:47 AM [facility] LABnRBC0.00.0 - 0.0 /100 WBCs LAB HEMATOLOGY METHOD 03/06/2025 6:47 AM [facility] LABRBC4.684.50 - 5.90 x10*6/uL LAB HEMATOLOGY METHOD 03/06/2025 6:47 AM [facility] ZUSHswtnfibwd62.1(L)13.5 - 17.5 g/dL LAB HEMATOLOGY METHOD 03/06/2025 6:47 AM [facility] YRQZagxflzcmf43.7(L)41.0 - 52.0 % LAB HEMATOLOGY METHOD 03/06/2025 6:47 AM [facility] SVTZGL3709 - 100 fL LAB HEMATOLOGY METHOD 03/06/2025 6:47 AM [facility] ZGVHOH80.026.0 - 34.0 pg LAB HEMATOLOGY METHOD 03/06/2025 6:47 AM [facility] UKNNNNQ52.032.0 - 36.0 g/dL LAB HEMATOLOGY METHOD 03/06/2025 6:47 AM [facility] VPAITI67.211.5 - 14.5 % LAB HEMATOLOGY METHOD 03/06/2025 6:47 AM [facility] LKOXlalrynyw064289 - 450 x10*3/uL LAB HEMATOLOGY METHOD 03/06/2025 6:47 AM [facility] LABSpecimen (Source)Anatomical Location / LateralityCollection Method / VolumeCollection TimeReceived TimeBlood Venous blood specimen / UnknownVenipuncture / Ydifbip9203/06/2025 6:25 AM EST 03/06/2025 6:34 AM EST Narrative Authorizing ProviderResult TypeResult StatusRahul Mello [facility] BLOOD ORDERABLESFinal ResultPerforming OrganizationAddressCity/State/ZIP CodePhone Number [facility] [address] [place] [address] * (ABNORMAL) Llvyo-8-Aspdrlpuilh (03/05/2025 10:02 AM EST)ComponentValueRef RangeTest MethodAnalysis TimePerformed AtPathologist SignatureAlpha-1 Rmkdxtzhxxo102(H)84 - 218 mg/dL LAB CHEMISTRY METHOD 03/05/2025 5:51 PM [facility] LABSpecimen (Source)Anatomical Location / Laterality Collection Method / VolumeCollection TimeReceived TimeBloodVenous blood specimen / UnknownVenipuncture / Inadbtq2103/05/2025 10:02 AM EST03/05/2025 10:12 AM EST Narrative Authorizing ProviderResult TypeResult StatusChgarrick Silva [facility] BLOOD ORDERABLESFinal ResultPerforming OrganizationAddressCity/State/ZIP CodePhone Number [facility] [address] [facility] [address] [place] [address] * Ceruloplasmin (03/05/2025 10:02 AM EST)ComponentValueRef RangeTest Method Analysis TimePerformed AtPathologist WmvuymmtzIsrhbteodablz51.820.0 - 60.0 mg/dL03/05/2025 9:04 PM [facility] LABSpecimen (Source)Anatomical Location / LateralityCollection Method / VolumeCollection TimeReceived TimeBloodVenous blood specimen / UnknownVenipuncture / Azkrhnn4403/05/2025 10:02 AM EST 03/05/2025 10:12 AM EST Narrative Authorizing ProviderResult TypeResult StatusChristopher A Pluskota [facility] BLOOD ORDERABLESFinal ResultPerforming OrganizationAddressCity/State/ZIP CodePhone Number [address] [address] * (ABNORMAL) IgG (03/05/2025 10:02 AM EST)ComponentValueRef RangeTest Method Analysis TimePerformed AtPathologist LmzoocikwQpW868(L)700 - 1,600 mg/dL 03/05/2025 9:03 PM [facility] LABComment: MONOCLONAL PROTEINS MAY CAUSE FALSELY LOW RESULTS IN THIS ASSAY. SERUM PROTEIN ELECTROPHORESIS SHOULD BE DONE THE FIRST TEST TO EVALUATE MONOCLONAL GAMMOPATHY. Specimen (Source)Anatomical Location / LateralityCollection Method / Volume Collection TimeReceived TimeBloodVenous blood specimen / UnknownVenipuncture / Njrmlkq0303/05/2025 10:02 AM EST03/05/2025 10:12 AM EST Narrative Authorizing ProviderResult TypeResult StatusChristopher A Pluskota [facility] BLOOD ORDERABLESFinal ResultPerforming OrganizationAddressty/State/ZIP CodePhone Number [facility] [address] [place] [phone] * Antimitochondrial antibody (03/05/2025 10:02 AM EST)ComponentValueRef Range Test MethodAnalysis TimePerformed AtPathologist SignatureAnti-Mitochondrial XphnrwsnLckdcjriWfxfayza67/10/2025 2:50 PM [facility] LABSpecimen (Source) Anatomical Location / LateralityCollection Method / VolumeCollection Time Received TimeBloodVenous blood specimen / UnknownVenipuncture / Unknown 03/05/2025 10:02 AM EST03/05/2025 10:12 AM EST Narrative Authorizing ProviderResult TypeResult StatusChristopher A Pluskota [facility] BLOOD ORDERABLESFinal ResultPerforming OrganizationAddressCity/State/ZIP CodePhone Number [address] [address] * (ABNORMAL) Anti-Smooth Muscle Antibody (03/05/2025 10:02 AM EST)ComponentValue Ref RangeTest MethodAnalysis TimePerformed AtPathologist SignatureAnti-Smooth Muscle AntibodyPositive 1:80(A)Pizhxgxn50/11/2025 12:45 PM [facility] Specimen (Source)Anatomical Location / LateralityCollection Method / Volume Collection TimeReceived TimeBloodVenous blood specimen / UnknownVenipuncture / Dkcxxrc5103/05/2025 10:02 AM EST03/05/2025 10:12 AM EST Narrative Authorizing ProviderResult TypeResult StatusChristopher A Pluskota [facility] BLOOD ORDERABLESFinal ResultPerforming OrganizationAddressCity/State/ZIP CodePhone Number [address] [address] * GRANT without Reflex MAIRA (03/05/2025 10:02 AM EST)ComponentValueRef RangeTest MethodAnalysis TimePerformed AtPathologist SignatureANANegativeNegative 03/06/2025 2:50 PM [facility] LABComment: The Antinuclear Antibody (GRANT) test was performed using indirect immunofluorescence assay with HEp-2 cells slide. Specimen (Source)Anatomical Location / LateralityCollection Method / Volume Collection TimeReceived TimeBloodVenous blood specimen / UnknownVenipuncture / Dnqsxbt0103/05/2025 10:02 AM EST03/05/2025 10:12 AM EST Narrative Authorizing ProviderResult TypeResult StatusChristopher A Pluskota [facility] BLOOD ORDERABLESFinal ResultPerforming OrganizationAddressty/State/ZIP CodePhone Number [address] [phone] * Hepatitis panel, acute (03/05/2025 10:02 AM EST)ComponentValueRef RangeTest MethodAnalysis TimePerformed AtPathologist SignatureHepatitis B Surface AntigenNonreactiveNonreactive LAB IMMUNOASSAY METHOD 03/05/2025 6:21 PM [facility] LABComment: Biotin interference may cause falsely decreased results. Patients taking a Biotin dose of up to 5 mg/day should refrain from taking Biotin for 24 hours before sample collection. Providers may contacttheir local laboratory for further information. Hepatitis A Antibody; IgMNonreactiveNonreactive LAB IMMUNOASSAY METHOD 03/05/2025 6:21 PM [facility] LABComment: Biotin interference may cause falsely decreased results. Patients taking a Biotin dose of up to 5 mg/day should refrain from taking Biotin for 24 hours before sample collection. [facility] for further information. Hepatitis B Core Antibody; IgMNonreactiveNonreactive LAB IMMUNOASSAY METHOD 03/05/2025 6:21 PM [facility] LABComment: Results from patients taking biotin supplements or receiving high-dose biotin therapy should be interpreted with caution due to possible interference with this test. Providers may contact their locallaboratory for further information. Hepatitis C AnitbodyNonreactiveNonreactive LAB IMMUNOASSAY METHOD 03/05/2025 6:21 PM [facility] LABComment:Results from patients taking biotin supplements or receiving high-dose biotin therapy should be interpreted with caution due to possible interference with this test. Providers may contact their locallaboratory for further information.Specimen (Source)Anatomical Location / LateralityCollection Method / VolumeCollection TimeReceived TimeBloodVenous blood specimen / UnknownVenipuncture / Qptfqcj1803/05/2025 10:02 AM EST03/05/2025 10:12 AM EST Narrative Authorizing ProviderResult TypeResult StatusChristopher A [employer]kota [facility] BLOOD ORDERABLESFinal ResultPerforming OrganizationAddressCity/State/ZIP CodePhone Number [facility] [address] [place] [address] * (ABNORMAL) Iron and TIBC (03/05/2025 9:57 AM EST)ComponentValueRef RangeTest MethodAnalysis TimePerformed AtPathologist IrjupufkoMush5301 - 150 ug/dL LAB CHEMISTRY [facility] RKQFDPW332259 - 370 ug/dL LAB CHEMISTRY METHOD 03/05/2025 11:06 AM [facility] MXGKORX972(L)240 - 445 ug/dL LAB CHEMISTRY METHOD 03/05/2025 11:06 AM [facility] LAB% Hsieudfhnf96(L)25 - 45 % LAB CHEMISTRY METHOD 03/05/2025 11:06 AM [facility] LABSpecimen (Source)Anatomical Location / LateralityCollection Method / VolumeCollection TimeReceived TimeBlood Venous blood specimen / UnknownVenipuncture / Vpmpgwm4703/05/2025 9:57 AM EST 03/05/2025 10:12 AM EST Narrative Authorizing ProviderResult TypeResult StatusChristopher A Pluskota [facility] BLOOD ORDERABLESFinal ResultPerforming OrganizationAddressCity/State/ZIP CodePhone Number [facility] [address] [place] [phone] * (ABNORMAL) Ferritin (03/05/2025 9:57 AM EST)ComponentValueRef RangeTest Method Analysis TimePerformed AtPathologist SignatureFerritin1,275(H)20 - 300 ng/mL LAB CHEMISTRY METHOD 03/05/2025 11:06 AM [facility] LABSpecimen (Source)Anatomical Location / LateralityCollection Method / VolumeCollection TimeReceived TimeBlood Venous blood specimen / UnknownVenipuncture / Rhbnjmb7603/05/2025 9:57 AM EST 03/05/2025 10:12 AM EST Narrative Authorizing ProviderResult TypeResult StatusChristopher A Pluskota [facility] BLOOD ORDERABLESFinal ResultPerforming OrganizationAddressCity/State/ZIP CodePhone Number [facility] [id number] [place] [phone] * (ABNORMAL) Bilirubin, direct (03/05/2025 9:57 AM EST)ComponentValueRef Range Test MethodAnalysis TimePerformed AtPathologist SignatureBilirubin, Direct7.6 (H)0.0 - 0.3 mg/dL LAB CHEMISTRY METHOD 03/05/2025 11:06 AM [facility] LABSpecimen (Source)Anatomical Location / LateralityCollection Method / VolumeCollection TimeReceived TimeBlood Venous blood specimen / UnknownVenipuncture / Mxkbprk8403/05/2025 9:57 AM EST 03/05/2025 10:12 AM EST Narrative Authorizing ProviderResult TypeResult StatusChristopher A Pluskota [facility] BLOOD ORDERABLESFinal ResultPerforming OrganizationAddressCity/State/ZIP CodePhone Number [facility] [address] [place] [address] * Protime-INR (03/05/2025 5:47 AM EST)ComponentValueRef RangeTest MethodAnalysis TimePerformed AtPathologist XwmtxdxzwMlxnjot54.29.8 - 12.4 seconds LAB COAGULATION METHOD 03/05/2025 6:34 AM [facility] LABINR1.10.9 - 1.1 LAB COAGULATION METHOD 03/05/2025 6:34 AM [facility] LABSpecimen (Source)Anatomical Location / LateralityCollection Method / VolumeCollection TimeReceived TimeBlood Venous blood specimen / UnknownVenipuncture / Mwmiwbh7503/05/2025 5:47 AM EST 03/05/2025 6:22 AM EST Narrative Authorizing ProviderResult TypeResult StatusRahul RICHARDSON BLOOD ORDERABLESFinal ResultPerforming OrganizationAddressCity/State/ZIP CodePhone Number [facility] [address] [place] [address] * (ABNORMAL) Phosphorus (03/05/2025 5:47 AM EST)ComponentValueRef RangeTest MethodAnalysis TimePerformed AtPathologist SignaturePhosphorus2.2(L)2.5 - 4.9 mg/dL LAB CHEMISTRY METHOD 03/05/2025 6:59 AM [facility] LABSpecimen (Source)Anatomical Location / LateralityCollection Method / VolumeCollection TimeReceived TimeBlood Venous blood specimen / UnknownVenipuncture / Ncvlibb4303/05/2025 5:47 AM EST 03/05/2025 6:23 AM EST Narrative Authorizing ProviderResult TypeResult StatusRahul RICHARDSON BLOOD ORDERABLESFinal ResultPerforming OrganizationAddressCity/State/ZIP CodePhone Number [facility] [id number] [place] [phone] * Magnesium (03/05/2025 5:47 AM EST)ComponentValueRef RangeTest MethodAnalysis TimePerformed AtPathologist SignatureMagnesium1.831.60 - 2.40 mg/dL LAB CHEMISTRY METHOD 03/05/2025 6:59 AM [facility] LABSpecimen (Source)Anatomical Location / LateralityCollection Method / VolumeCollection TimeReceived TimeBlood Venous blood specimen / UnknownVenipuncture / Cxwcbga6903/05/2025 5:47 AM EST 03/05/2025 6:23 AM EST Narrative Authorizing ProviderResult TypeResult StatusRahul RICHARDSON BLOOD ORDERABLESFinal ResultPerforming OrganizationAddressCity/State/ZIP CodePhone Number [facility] [address] [place] [phone] * (ABNORMAL) Comprehensive Metabolic Panel (03/05/2025 5:47 AM EST)Component ValueRef RangeTest MethodAnalysis TimePerformed AtPathologist SignatureGlucose 9874 - 99 mg/dL LAB CHEMISTRY METHOD 03/05/2025 6:59 AM [facility] YBRIcevdy650652 - 145 mmol/L LAB CHEMISTRY METHOD 03/05/2025 6:59 AM [facility] LABPotassium3.1(L)3.5 - 5.3 mmol/L LAB CHEMISTRY METHOD 03/05/2025 6:59 AM [facility] XBHIfamskol89906 - 107 mmol/L LAB CHEMISTRY METHOD 03/05/2025 6:59 AM [facility] UWPNugxtuifbzi7867 - 32 mmol/L LAB CHEMISTRY METHOD 03/05/2025 6:59 AM [facility] LABComment:Bicarbonate results may be falsely elevated when Lactate Dehydrogenase (LDH) concentrations exceed 2,000 U/L due to a temporary reagent manufacturing issue. If significantly elevated LDH levels are suspected, interpret bicarbonate results with caution, correlate with the patient???s clinical status, and consider confirming CO2 values using a blood gas analyzer.Anion Ozs5261 - 20 mmol/L LAB CHEMISTRY METHOD 03/05/2025 6:59 AM [facility] LABUrea Oztebhda834 - 23 mg/dL LAB CHEMISTRY METHOD 03/05/2025 6:59 AM [facility] LABCreatinine0.860.50 - 1.30 mg/dL LAB CHEMISTRY METHOD 03/05/2025 6:59 AM [facility] LABeGFR>90>60 mL/min/1.73m*2 LAB CHEMISTRY METHOD 03/05/2025 6:59 AM [facility] LABComment: Calculations of estimated GFR are performed using the 2020 CKD-EPI Study Refit equation without therace variable for the IDMS-Traceable creatinine methods. https://jasn.asnjournals.org/content/early//ASN.2121116289 Calcium8.88.6 - 10.3 mg/dL LAB CHEMISTRY METHOD 03/05/2025 6:59 AM [facility] LABAlbumin3.2(L)3.4 - 5.0 g/dL LAB CHEMISTRY METHOD 03/05/2025 6:59 AM [facility] LABAlkaline Sqhziprblcu5318 - 136 U/L LAB CHEMISTRY METHOD 03/05/2025 6:59 AM [facility] LABTotal Protein5.5(L)6.4 - 8.2 g/dL LAB CHEMISTRY METHOD 03/05/2025 6:59 AM [facility] ZWOEYC55(H)9 - 39 U/L LAB CHEMISTRY METHOD 03/05/2025 6:59 AM [facility] LABBilirubin, Total11.0(H)0.0 - 1.2 mg/dL LAB CHEMISTRY METHOD 03/05/2025 6:59 AM [facility] EXLZAZ000(H)10 - 52 U/L LAB CHEMISTRY METHOD 03/05/2025 6:59 AM [facility] LABComment:Patients treated with Sulfasalazine may generate falsely decreased results for ALT.Specimen (Source) Anatomical Location / LateralityCollection Method / VolumeCollection Time Received TimeBloodVenous blood specimen / UnknownVenipuncture / Unknown 03/05/2025 5:47 AM EST03/05/2025 6:23 AM EST Narrative Authorizing ProviderResult TypeResult StatusRahul RICHARDSON BLOOD ORDERABLESFinal ResultPerforming OrganizationAddressCity/State/ZIP CodePhone Number [facility] [address] [place] [phone] * (ABNORMAL) CBC (03/05/2025 5:47 AM EST)ComponentValueRef RangeTest Method Analysis TimePerformed AtPathologist FhpizvokiZAN35.5(H)4.4 - 11.3 x10*3/uL LAB HEMATOLOGY METHOD 03/05/2025 6:34 AM [facility] LABnRBC0.00.0 - 0.0 /100 WBCs LAB HEMATOLOGY METHOD 03/05/2025 6:34 AM [facility] LABRBC4.654.50 - 5.90 x10*6/uL LAB HEMATOLOGY METHOD 03/05/2025 6:34 AM [facility] HLCZeuliuovst33.713.5 - 17.5 g/dL LAB HEMATOLOGY METHOD 03/05/2025 6:34 AM [facility] FUWVorkfesolo88.4(L)41.0 - 52.0 % LAB HEMATOLOGY METHOD 03/05/2025 6:34 AM [facility] AGCDDK3192 - 100 fL LAB HEMATOLOGY METHOD 03/05/2025 6:34 AM [facility] NVRJVR19.526.0 - 34.0 pg LAB HEMATOLOGY METHOD 03/05/2025 6:34 AM [facility] ZAESUGR67.832.0 - 36.0 g/dL LAB HEMATOLOGY METHOD 03/05/2025 6:34 AM [facility] NCQWIY99.211.5 - 14.5 % LAB HEMATOLOGY METHOD 03/05/2025 6:34 AM [facility] STZGjnetopip879249 - 450 x10*3/uL LAB HEMATOLOGY METHOD 03/05/2025 6:34 AM [facility] LABSpecimen (Source)Anatomical Location / LateralityCollection Method / VolumeCollection TimeReceived TimeBlood Venous blood specimen / UnknownVenipuncture / Nlyubsw7303/05/2025 5:47 AM EST 03/05/2025 6:22 AM EST Narrative Authorizing ProviderResult TypeResult StatusRahul RICHARDSON BLOOD ORDERABLESFinal ResultPerforming OrganizationAddressCity/State/ZIP CodePhone Number [facility] [address] [place] [address] * (ABNORMAL) CBC (03/04/2025 6:38 AM EST)ComponentValueRef RangeTest Method Analysis TimePerformed AtPathologist PhyjtovqbQOD84.6(H)4.4 - 11.3 x10*3/uL LAB HEMATOLOGY METHOD 03/04/2025 6:58 AM [facility] LABnRBC0.00.0 - 0.0 /100 WBCs LAB HEMATOLOGY METHOD 03/04/2025 6:58 AM [facility] LABRBC4.824.50 - 5.90 x10*6/uL LAB HEMATOLOGY METHOD 03/04/2025 6:58 AM [facility] TKXGeudtzxayv59.613.5 - 17.5 g/dL LAB HEMATOLOGY METHOD 03/04/2025 6:58 AM [facility] FBIQymenytotn22.8(L)41.0 - 52.0 % LAB HEMATOLOGY METHOD 03/04/2025 6:58 AM [facility] HDRDJE7504 - 100 fL LAB HEMATOLOGY METHOD 03/04/2025 6:58 AM [facility] ZYCFEO75.226.0 - 34.0 pg LAB HEMATOLOGY METHOD 03/04/2025 6:58 AM [facility] RUNOXSJ52.332.0 - 36.0 g/dL LAB HEMATOLOGY METHOD 03/04/2025 6:58 AM [facility] YRTKZT48.911.5 - 14.5 % LAB HEMATOLOGY METHOD 03/04/2025 6:58 AM [facility] LRKEarcpbzdn196587 - 450 x10*3/uL LAB HEMATOLOGY METHOD 03/04/2025 6:58 AM [facility] LABSpecimen (Source)Anatomical Location / LateralityCollection Method / VolumeCollection TimeReceived TimeBlood Venous blood specimen / UnknownVenipuncture / Jqokbiw4603/04/2025 6:38 AM EST 03/04/2025 6:55 AM EST Narrative Authorizing ProviderResult TypeResult StatusRahul Mello MDLAB BLOOD ORDERABLESFinal ResultPerforming OrganizationAddressCity/State/ZIP CodePhone Number [facility] [address] [place] [address] [phone] * (ABNORMAL) Protime-INR (03/04/2025 6:35 AM EST)ComponentValueRef RangeTest MethodAnalysis TimePerformed AtPathologist KoqzrgjifYyfbljh48.2(H)9.8 - 12.4 seconds LAB COAGULATION METHOD 03/04[facility]2025 7[facility](H)0.9 - 1.1 LAB COAGULATION METHOD 03/04/2025 7:[facility] LABSpecimen (Source)Anatomical Location / LateralityCollection Method / VolumeCollection TimeReceived TimeBlood Venous blood specimen / UnknownVenipuncture / Ylfbchp5003/04/2025 6:35 AM EST 03/04/2025 6:55 AM EST Narrative Authorizing ProviderResult TypeResult StatusRahul RICHARDSON BLOOD ORDERABLESFinal ResultPerforming OrganizationAddressCity/State/ZIP CodePhone Number [facility] [address] [place] [address] * Magnesium (03/04/2025 6:35 AM EST)ComponentValueRef RangeTest MethodAnalysis TimePerformed AtPathologist SignatureMagnesium1.701.60 - 2.40 mg/dL LAB CHEMISTRY METHOD 03/04/2025 8:[facility] LABSpecimen (Source) Anatomical Location / LateralityCollection Method / VolumeCollection Time Received TimeBloodVenous blood specimen / UnknownVenipuncture / Unknown 03/04/2025 6:35 AM EST03/04/2025 6:55 AM EST Narrative Authorizing ProviderResult TypeResult StatusRahul RICHARDSON BLOOD ORDERABLESFinal ResultPerforming OrganizationAddressCity/State/ZIP CodePhone Number [facility] [address] [place] [address] * (ABNORMAL) Comprehensive Metabolic Panel (03/04/2025 6:35 AM EST)Component ValueRef RangeTest MethodAnalysis TimePerformed AtPathologist SignatureGlucose 105(H)74 - 99 mg/dL LAB CHEMISTRY METHOD 03/04/2025 8:[facility] KXYOxyceu453(L)136 - 145 mmol/L LAB CHEMISTRY METHOD 03/04/2025 8:12 AM [facility] LABPotassium2.9(LL)3.5 - 5.3 mmol/L LAB CHEMISTRY METHOD 03/04/2025 8:[facility] IYAFaakraqc16309 - 107 mmol/L LAB CHEMISTRY METHOD 03/04/2025 8:[facility] WGNZlmohbrrkyf7081 - 32 mmol/L LAB CHEMISTRY METHOD 03/04/2025 8:12 AM [facility] LABComment:Bicarbonate results may be falsely elevated when Lactate Dehydrogenase (LDH) concentrations exceed 2,000 U/L due to a temporary reagent manufacturing issue. If significantly elevated LDH levels are suspected, interpret bicarbonate results with caution, correlate with the patient???s clinical status, and consider confirming CO2 values using a blood gas analyzer.Anion Ole0179 - 20 mmol/L LAB CHEMISTRY METHOD 03/04/2025 8:12 [facility] LABUrea Ybxumwiw904 - 23 mg/dL LAB CHEMISTRY METHOD 03/04/2025 8:12 [facility] LABCreatinine0.970.50 - 1.30 mg/dL LAB CHEMISTRY METHOD 03/04/2025 8:[facility] RNGaWYV46>60 mL/min/1.73m*2 LAB CHEMISTRY METHOD 03/04/2025 8:12 AM [facility] LABComment: Calculations of estimated GFR are performed using the 2020 CKD-EPI Study Refit equation without therace variable for the IDMS-Traceable creatinine methods. https://jasn.asnjournals.org/content/early//ASN.4661916606 Calcium8.78.6 - 10.3 mg/dL LAB CHEMISTRY METHOD 03/04/2025 8:12 [address] [facility] LABAlbumin3.2(L)3.4 - 5.0 g/dL LAB CHEMISTRY METHOD 03/04/2025 8:12 [address] [facility] LABAlkaline Kugcaukjxmo018 33 - 136 U/L LAB CHEMISTRY METHOD 03/04/2025 8:12 [facility] LABTotal Protein5.2(L)6.4 - 8.2 g/dL LAB CHEMISTRY METHOD 03/04/2025 8:[facility] SRVNFN05(H)9 - 39 U/L LAB CHEMISTRY METHOD 03/04/2025 8:12 AM [facility] LABBilirubin, Total11.3(H) 0.0 - 1.2 mg/dL LAB CHEMISTRY METHOD 03/04/2025 8:[facility] DIBJMJ654(H)10 - 52 U/L LAB CHEMISTRY METHOD 03/04/2025 8:12 AM [facility] LABComment:Patients treated with Sulfasalazine may generate falsely decreased results for ALT.Specimen (Source)Anatomical Location / LateralityCollection Method / VolumeCollection TimeReceived TimeBloodVenous blood specimen / UnknownVenipuncture / Unknown 03/04/2025 6:35 AM EST03/04/2025 6:55 AM EST Narrative Authorizing ProviderResult TypeResult StatusRahul Mello [facility] BLOOD ORDERABLESFinal ResultPerforming OrganizationAddressCity/State/ZIP CodePhone Number [facility] [address] [place] [address] * MRCP pancreas w and wo IV contrast (03/03/2025 9:41 AM EST)Anatomical Region LateralityModalityAbdominal, Head neckMagnetic ResonanceSpecimen (Source) Anatomical Location / LateralityCollection Method / VolumeCollection Time Received Time03/04/2025 9:33 AM EST03/04/2025 9:33 AM EST Impressions 03/04/2025 9:32 AM EST 1. Slightly edematous appearance of the pancreas with some peripancreatic fat stranding and mesenteric edema, with findings favoring acute interstitial pancreatitis, please correlate clinically. No evidence for necrosis or developing peripancreatic collection. Normal caliber main pancreatic duct. 2. Cholelithiasis. Question mild wall thickening of the gallbladder. Please correlate clinically to exclude acute cholecystitis. 3. Mild hepatomegaly with fatty infiltration of the liver. Prominent portacaval lymph node may be reactive. 4. Renal cysts. ? Signed by: Corry Mobley 03/04/2025 9:32 AM Dictation workstation: ?? [id number] Narrative 03/04/2025 9:32 AM EST Interpreted By: Corry Mobley, STUDY: MRCP PANCREAS W AND WO IV CONTRAST; ??03/03/2025 9:41 am ?? INDICATION: Signs/Symptoms:obstructive pattern to LFTs, jaundice. ?? COMPARISON: No prior relevant studies for comparison ?? ACCESSION NUMBER(S): [id number] ?? ORDERING CLINICIAN: CARLY PRAKASH ?? TECHNIQUE: MRI PANCREAS; Multiplanar magnetic resonance images of the abdomen were obtained including the following sequences; T2-weighted SSFSE with and without fat saturation, T1-weighted GRE in/opposed phase, DWI, fat saturated 3D-T1w GRE pre and dynamically post contrast. Radial thick slab T2w RARE MRCP and coronally reconstructed navigator gated high resolution 3-D T2w RESTORE MRCP with MIP reconstruction were also performed for MRCP. ??30 ml of ??Gadolinium contrast agent Dotarem were administered intravenously without immediate complication. The study was performed on a 1.5 Swati GE magnet. ?? FINDINGS: LIVER: The liver is mildly enlarged, 17.5 cm. The capsule is smooth. There is signal drop on out of phase imaging compatible with fatty infiltration. Some wedge-shaped and nodular peripheral areas of early arterial enhancement become isointense to background liver on the portal venous phase, likely areas of transient altered perfusion. No suspicious liver lesions. Signal voids along the dome may be calcifications. ?? BILE DUCTS: Normal caliber intrahepatic and extrahepatic bile ducts. No peribiliary enhancement or filling defect. ?? GALLBLADDER: The gallbladder contains multiple layering gallstones, questionably with some mild wall thickening. No significant pericholecystic fluid. ?? PANCREAS: There is fatty infiltration of the pancreatic parenchyma. Normal caliber main pancreatic duct. No pancreas divisum. Focal pancreatic lesion seen. The pancreatic parenchyma appears slightly edematous with some mild peripancreatic fat infiltration, no drainable collection. Postcontrast enhancement is homogeneous. ?? SPLEEN: Mildly enlarged, 14.5 cm. No focal lesion. ?? ADRENAL GLANDS: No nodules. ?? KIDNEYS: No right or left hydronephrosis or suspicious renal cortical lesion. There are bilateral small cortical and parapelvic cysts. ?? LYMPH NODES: Prominent portacaval node measures 2.9 x 1.7 cm in long and short axis, probably reactive. No upper abdominal adenopathy by size criteria. ?? ABDOMINAL VESSELS: The hepatic veins and portal veins are patent with patent appearing superior mesenteric and splenic veins. Normal caliber IVC and abdominal aorta. Grossly patent appearing celiac axis, superior mesenteric, and inferior mesenteric arteries. ?? BOWEL: There is a small sliding-type hiatal hernia. Nondistended stomach and decompressed duodenum appear unremarkable. Visualized large and small bowel loops are nondilated. ?? PERITONEUM/RETROPERITONEUM: There is no ascites or pneumoperitoneum, and no drainable collection or focal retroperitoneal lesion is seen. There is some mild peripancreatic and upper mesenteric fat stranding. ?? BONES AND LOWER THORAX: Degenerative changes are seen along the thoracic and lumbar spine. There is slight leftward mid lumbar curvature. No destructive bony lesion or acute bony abnormality is seen. Heart size is upper normal, no pericardial or pleural effusion. ?? Procedure Note Corry Mobley MD - 03/04/2025 Interpreted By: Corry Mobley, STUDY: MRCP PANCREAS W AND WO IV CONTRAST; 03/03/2025 9:41 am INDICATION: Signs/Symptoms:obstructive pattern to LFTs, jaundice. COMPARISON: No prior relevant studies for comparison ACCESSION NUMBER(S): [id number] ORDERING CLINICIAN: CARLY PRAKASH TECHNIQUE: MRI PANCREAS; Multiplanar magnetic resonance images of the abdomen were obtained including the following sequences; T2-weighted SSFSE with and without fat saturation, T1-weighted GRE in/opposed phase, DWI, fat saturated 3D-T1w GRE pre and dynamically post contrast. Radial thick slab T2w RARE MRCP and coronally reconstructed navigator gated high resolution 3-D T2w RESTORE MRCP with MIP reconstruction were also performed for MRCP. 30 ml of Gadolinium contrast agent Dotarem were administered intravenously without immediate complication. The study was performed on a 1.5 Swati GE magnet. FINDINGS: LIVER: The liver is mildly enlarged, 17.5 cm. The capsule is smooth. There is signal drop on out of phase imaging compatible with fatty infiltration. Some wedge-shaped and nodular peripheral areas of early arterial enhancement become isointense to background liver on the portal venous phase, likely areas of transient altered perfusion. No suspicious liver lesions. Signal voids along the dome may be calcifications. BILE DUCTS: Normal caliber intrahepatic and extrahepatic bile ducts. No peribiliary enhancement or filling defect. GALLBLADDER: The gallbladder contains multiple layering gallstones, questionably with some mild wall thickening. No significant pericholecystic fluid. PANCREAS: There is fatty infiltration of the pancreatic parenchyma. Normal caliber main pancreatic duct. No pancreas divisum. Focal pancreatic lesion seen. The pancreatic parenchyma appears slightly edematous with some mild peripancreatic fat infiltration, no drainable collection. Postcontrast enhancement is homogeneous. SPLEEN: Mildly enlarged, 14.5 cm. No focal lesion. ADRENAL GLANDS: No nodules. KIDNEYS: No right or left hydronephrosis or suspicious renal cortical lesion. There are bilateral small cortical and parapelvic cysts. LYMPH NODES: Prominent portacaval node measures 2.9 x 1.7 cm in long and short axis, probably reactive. No upper abdominal adenopathy by size criteria. ABDOMINAL VESSELS: The hepatic veins and portal veins are patent with patent appearing superior mesenteric and splenic veins. Normal caliber IVC and abdominal aorta. Grossly patent appearing celiac axis, superior mesenteric, and inferior mesenteric arteries. BOWEL: There is a small sliding-type hiatal hernia. Nondistended stomach and decompressed duodenum appear unremarkable. Visualized large and small bowel loops are nondilated. PERITONEUM/RETROPERITONEUM: There is no ascites or pneumoperitoneum, and no drainable collection or focal retroperitoneal lesion is seen. There is some mild peripancreatic and upper mesenteric fat stranding. BONES AND LOWER THORAX: Degenerative changes are seen along the thoracic and lumbar spine. There is slight leftward mid lumbar curvature. No destructive bony lesion or acute bony abnormality is seen. Heart size is upper normal, no pericardial or pleural effusion. IMPRESSION: 1. Slightly edematous appearance of the pancreas with some peripancreatic fat stranding and mesenteric edema, with findings favoring acute interstitial pancreatitis, please correlate clinically. No evidence for necrosis or developing peripancreatic collection. Normal caliber main pancreatic duct. 2. Cholelithiasis. Question mild wall thickening of the gallbladder. Please correlate clinically to exclude acute cholecystitis. 3. Mild hepatomegaly with fatty infiltration of the liver. Prominent portacaval lymph node may be reactive. 4. Renal cysts. Signed by: Corry Mobley 03/04/2025 9:32 AM Dictation workstation: [id number] Authorizing ProviderResult TypeResult StatusMattbo Prakash DOIMG MRI PROCEDURESFinal Result * (ABNORMAL) Comprehensive metabolic panel (03/03/2025 5:41 AM EST)Component ValueRef RangeTest MethodAnalysis TimePerformed AtPathologist SignatureGlucose 113(H)74 - 99 mg/dL LAB CHEMISTRY METHOD 03/03/2025 6:51 AM [facility] IHHFsagvb983(L)136 - 145 mmol/L LAB CHEMISTRY METHOD 03/03/2025 6:51 AM [facility] LABPotassium3.2(L)3.5 - 5.3 mmol/L LAB CHEMISTRY METHOD 03/03/2025 6:51 AM [facility] GLDQbkdjqsj82978 - 107 mmol/L LAB CHEMISTRY METHOD 03/03/2025 6:51 AM [facility] MXUJveoatucuwr6579 - 32 mmol/L LAB CHEMISTRY METHOD 03/03/2025 6:51 AM [facility] LABComment:Bicarbonate results may be falsely elevated when Lactate Dehydrogenase (LDH) concentrations exceed 2,000 U/L due to a temporary reagent manufacturing issue. If significantly elevated LDH levels are suspected, interpret bicarbonate results with caution, correlate with the patient???s clinical status, and consider confirming CO2 values using a blood gas analyzer.Anion [id number] - 20 mmol/L LAB CHEMISTRY METHOD 03/03/2025 6:51 AM [facility] LABUrea Prznymrh948 - 23 mg/dL LAB CHEMISTRY METHOD 03/03/2025 6:51 AM [facility] LABCreatinine1.010.50 - 1.30 mg/dL LAB CHEMISTRY METHOD 03/03/2025 6:51 AM [facility] DSMrWBY03>60 mL/min/1.73m*2 LAB CHEMISTRY METHOD 03/03/2025 6:51 AM [facility] LABComment: Calculations of estimated GFR are performed using the 2020 CKD-EPI Study Refit equation without therace variable for the IDMS-Traceable creatinine methods. https://jasn.asnjournals.org/content//ASN.5868073073 Calcium8.5(L)8.6 - 10.3 mg/dL LAB CHEMISTRY METHOD 03/03/2025 6:51 AM [facility] LABAlbumin3.63.4 - 5.0 g/dL LAB CHEMISTRY METHOD 03/03/2025 6:51 AM [facility] LABAlkaline Dvygunoxhby24247 - 136 U/L LAB CHEMISTRY METHOD 03/03/2025 6:51 AM [facility] LABTotal Protein5.5(L)6.4 - 8.2 g/dL LAB CHEMISTRY METHOD 03/03/2025 6:51 AM [facility] UPGNGO24(H)9 - 39 U/L LAB CHEMISTRY METHOD 03/03/2025 6:51 AM [facility] LABBilirubin, Total10.0(H)0.0 - 1.2 mg/dL LAB CHEMISTRY METHOD 03/03/2025 6:51 AM [facility] EBKOIJ143(H)10 - 52 U/L LAB CHEMISTRY METHOD 03/03/2025 6:51 AM [facility] LABComment:Patients treated with Sulfasalazine may generate falsely decreased results for ALT.Specimen (Source) Anatomical Location / LateralityCollection Method / VolumeCollection Time Received TimeBloodVenous blood specimen / UnknownVenipuncture / Unknown 03/03/2025 5:41 AM EST03/03/2025 6:08 AM EST Narrative Authorizing ProviderResult TypeResult StatusMatthew Macie MARY BLOOD ORDERABLESFinal ResultPerforming OrganizationAddressCity/State/ZIP CodePhone Number [facility] [address] [phone] * (ABNORMAL) CBC (03/03/2025 5:41 AM EST)ComponentValueRef RangeTest Method Analysis TimePerformed AtPathologist GpxjirklkVST16.8(H)4.4 - 11.3 x10*3/uL LAB HEMATOLOGY METHOD 03/03/2025 6:21 AM [facility] LABnRBC0.00.0 - 0.0 /100 WBCs LAB HEMATOLOGY METHOD 03/03/2025 6:21 AM [facility] LABRBC5.204.50 - 5.90 x10*6/uL LAB HEMATOLOGY METHOD 03/03/2025 6:21 AM [facility] XADGwqlsghzpn59.713.5 - 17.5 g/dL LAB HEMATOLOGY METHOD 03/03/2025 6:21 AM [facility] EDMTxjteaxvxc28.041.0 - 52.0 % LAB HEMATOLOGY METHOD 03/03/2025 6:21 AM [facility] UXZBXD4297 - 100 fL LAB HEMATOLOGY METHOD 03/03/2025 6:21 AM [facility] CVMXEK88.326.0 - 34.0 pg LAB HEMATOLOGY METHOD 03/03/2025 6:21 AM [facility] VPLIANG23.432.0 - 36.0 g/dL LAB HEMATOLOGY METHOD 03/03/2025 6:21 AM [facility] YBDKQL02.811.5 - 14.5 % LAB HEMATOLOGY METHOD 03/03/2025 6:21 AM [facility] QKLTifmrpiex321740 - 450 x10*3/uL LAB HEMATOLOGY METHOD 03/03/2025 6:21 AM [facility] LABSpecimen (Source)Anatomical Location / LateralityCollection Method / VolumeCollection TimeReceived TimeBlood Venous blood specimen / UnknownVenipuncture / Xsgjpra9603/03/2025 5:41 AM EST 03/03/2025 6:08 AM EST Narrative Authorizing ProviderResult TypeResult StatusMatthew Macie MARTINEZ BLOOD ORDERABLESFinal ResultPerforming OrganizationAddressCity/State/ZIP CodePhone Number [facility] [address] [place] [address] documented in this encounter Visit Diagnoses Diagnosis Biliary obstruction- Primary Obstruction of bile duct Biliary obstruction Obstruction of bile duct Acute biliary pancreatitis, unspecified complication status ([facility]HS-HCC) Elevated liver function tests Other abnormal blood chemistry Jaundice Jaundice, unspecified, not of Jaundice Jaundice, unspecified, not of Common bile duct dilation Elevated liver function tests Other abnormal blood chemistry Acute pancreatitis ([facility]HS-HCC) Acute pancreatitis documented in this encounter Admitting Diagnoses Diagnosis Biliary obstruction Obstruction of bile duct documented in this encounter Administered Medications Medication OrderMAR ActionAction DateDoseRateSite D5 % and 0.9 % sodium chloride infusion 100 mL/hr, intravenous, Continuous, Starting on 03/04/25 at 0900, For 20 hours New Bag03/04/2025 9:22 AM JZO897 mL/hr100 mL/hr gadoterate meglumine (Dotarem) 0.5 mmol/mL contrast injection 30 mL 30 mL, intravenous, Once in imaging, Starting on Tue03/03/25 at 0938, For 1 dose, Administer undiluted as rapid I.V. bolus injection Given03/03/2025 9:39 AM EST30 mL HYDROmorphone (Dilaudid) injection 0.5 mg 0.5 mg, intravenous, Every 4 hours PRN, pain ??? moderate (4-6), first line, Starting on Tue03/03/25 at 0733 Given03/04/2025 8:44 PM EST0.5 bhEwmmz5303/04/2025 12:40 PM EST0.5 mgGiven 03/04/2025 8:11 AM EST0.5 mg HYDROmorphone (Dilaudid) injection 1 mg 1 mg, intravenous, Every 4 hours PRN, pain ??? severe (7-10), first line, Starting on Tue03/03/25 at 0733 Given03/03/2025 1:06 PM EST1 mg HYDROmorphone (Dilaudid) injection 1 mg 1 mg, intravenous, Every 4 hours PRN, pain ??? severe (7-10), first line, Starting on Tue03/03/25 at 1955 Given03/03/2025 8:07 PM EST1 mg lactated Ringer's infusion 150 mL/hr, intravenous, Continuous, Starting on Tue03/03/25 at 0800, For 20 hours New 03/04/2025 12:05 AM IEQ363 mL/hr150 mL/hrRate/Dose Duamqs9103/03/2025 6:25 PM WUA957 mL/hr150 mL/hrNew 03/03/2025 5:15 PM RCN298 mL/hr150 mL/hr lactated Ringer's infusion 125 mL/hr, intravenous, Continuous, Starting on Tue03/05/25 at 0745, For 20 hours New 03/06/2025 12:32 AM VJP816 mL/hr125 mL/hrNew 03/05/2025 5:38 PM HQF655 mL/hr125 mL/hrNew 03/05/2025 8:27 AM MMB058 mL/hr125 mL/hr melatonin tablet 3 mg 3 mg, oral, Nightly PRN, sleep, Starting on 03/03/25 at 0124 Given03/05/2025 8:49 PM EST3 mg pantoprazole (ProtoNix) EC tablet 40 mg 40 mg, oral, Daily before breakfast, First dose on Tue03/04/25 at 0600, Do not crush, chew, or split. Given03/06/2025 6:25 AM EST40 jlAosjz5003/05/2025 5:51 AM EST40 mg pantoprazole (Protonix) injection 40 mg 40 mg, intravenous, Administer over 2 Minutes, Daily before breakfast, First dose on Tue03/03/25 [id number], Give if unable to take by mouth. Reconstitute each 40 mg vial with 10 mL NS to make 4 mg/mL solution. Given03/03/2025 6:20 AM EST40 mg piperacillin-tazobactam (Zosyn) 3.375 g in dextrose (iso) IV 50 mL 3.375 g, intravenous, at 12.5 mL/hr, Administer over 4 Hours, Every 8 hours, First dose on Tue03/03/25 at 0200, premix bag, Dosing of this medication varies based on severity of illness. Does this patient have sepsis or concern for sepsis (probable or documented infection plus systemic manifestations of infection)? Yes, Suspected Indication (Select all that apply): Abdominal Infection, Type of Therapy: Empiric, Type of infection: Community-Acquired, Indications: Abdominal Infection Indications:Abdominal InfectionNew Bag03/05/2025 10:21 AM EST3.375 g12.5 mL/hr New Bag03/05/2025 1:36 AM EST3.375 g12.5 mL/hrNew Bag03/04/2025 5:13 PM EST3.375 g12.5 mL/hr piperacillin-tazobactam (Zosyn) 4.5 g in dextrose (iso) IV 100 mL 4.5 g, intravenous, at 25 mL/hr, Administer over 4 Hours, Every 8 hours, First dose (after last modification) on Tue03/05/25 at 1800, Dose adjusted per EI policy premix bag, Dosing of this medicationvaries based on severity of illness. Does this patient have sepsis or concern for sepsis (probable or documented infection plus systemic manifestations of infection)? Yes, Suspected Indication (Select all that apply): Abdominal Infection, Type of Therapy: Empiric, Type of infection: Community-Acquired, Indications: Abdominal Infection Indications:Abdominal InfectionNew Bag03/06/2025 9:30 AM EST4.5 g25 mL/hrNew Bag 03/06/2025 2:19 AM EST4.5 g25 mL/hrNew Bag03/05/2025 5:22 PM EST4.5 g25 mL/hr potassium phosphates 15 mmol in dextrose 5% 250 mL IV (Ordered as: potassium phosphate) 15 mmol, intravenous, at 63.8 mL/hr, Administer over 4 Hours, Once, On Tue03/05/25 at 0930, For 1 dose, Each 3 mmol contains 4.4 mEq potassium. New Bag03/05/2025 10:21 AM EST15 mmol63.8 mL/hr sodium chloride 0.9 % with KCl 40 mEq/L infusion 100 mL/hr, intravenous, Continuous, Starting on Tue03/04/25 at 1330, For 20 hours Rate/Dose Txnsfr9903/05/2025 6:08 AM LUS409 mL/hr100 mL/hrRate/Dose Verify 03/05/2025 3:25 AM GZA915 mL/hr100 mL/hrNew Bag03/05/2025 1:37 AM VMO711 mL/hr 100 mL/hr sodium chloride 0.9% infusion 100 mL/hr, intravenous, Continuous, Starting on Tue03/03/25 at 0145, For 1 day New Bag03/03/2025 1:34 AM RCU308 mL/hr100 mL/hrdocumented in this encounter Active and Recently Administered Medications Times are shown in EST.Medication Order//12/2024 pantoprazole (ProtoNix) EC tablet 40 mg 40 mg, oral, Daily before breakfast, First dose on Tue03/04/25 at 0600, Do not crush, chew, or split. * 0535 (Not Given - Provider: Randa Medina RN - Reason: NPO) * 0551 (Given - Provider: Quin Diaz LPN) * 0625 (Given - Provider: Kala Mayen RN) piperacillin-tazobactam (Zosyn) 3.375 g in dextrose (iso) IV 50 mL (CANCELED) 3.375 g, intravenous, at 12.5 mL/hr, Administer over 4 Hours, Every 8 hours, First dose on Tue03/03/25 at 0200, premix bag, Dosing of this medication varies based on severity of illness. Does this patient have sepsis or concern for sepsis (probable or documented infection plus systemic manifestations of infection)? Yes, Suspected Indication (Select all that apply): Abdominal Infection, Type of Therapy: Empiric, Type of infection: Community-Acquired, Indications: Abdominal Infection * 0157 (New Bag - Provider: Randa Medina RN) * 0639 (Stopped - Provider: Randa Medina RN) * 0922 (New Bag - Provider: Malorie Benitez RN) * 1323 (Stopped - Provider: Malorie Benitez RN) * 1713 (New Bag - Provider: Malorie Benitez RN) * 2156 (Stopped - Provider: Quin Diaz LPN) * 0136 (New Bag - Provider: Quin Diaz LPN) * 0550 (Stopped - Provider: Quin Diaz LPN) * 1021 (New Bag - Provider: Makayla Mejia RN) * 1505 (Stopped - Provider: Makayla Mejia RN) piperacillin-tazobactam (Zosyn) 4.5 g in dextrose (iso) IV 100 mL 4.5 g, intravenous, at 25 mL/hr, Administer over 4 Hours, Every 8 hours, First dose (after last modification) on Tue03/05/25 at 1800, Dose adjusted per EI policy premix bag, Dosing of this medicationvaries based on severity of illness. Does this patient have sepsis or concern for sepsis (probable or documented infection plus systemic manifestations of infection)? Yes, Suspected Indication (Select all that apply): Abdominal Infection, Type of Therapy: Empiric, Type of infection: Community-Acquired, Indications: Abdominal Infection * 1722 (New Bag - Provider: Makayla Mejia RN) * 2152 (Stopped - Provider: Kala Mayen RN) * 0219 (New Bag - Provider: Kala Mayen, KEILA) * 0625 (Stopped - Provider: Kala Mayen, KEILA) * 0930 (New Bag - Provider: Ely Campos, KEILA) * 1245 (Stopped - Provider: Ely Campos, KEILA) potassium phosphates 15 mmol in dextrose 5% 250 mL IV (Ordered as: potassium phosphate) (COMPLETED) 15 mmol, intravenous, at 63.8 mL/hr, Administer over 4 Hours, Once, On Tue03/05/25 at 0930, For 1 dose, Each 3 mmol contains 4.4 mEq potassium. * 1021 (New Bag - Provider: Makayla Mejia RN) * 1505 (Stopped - Provider: Makayla Mejia RN) valsartan 160 mg, hydroCHLOROthiazide 12.5 mg for Diovan HCT oral, Daily, First dose on Tue03/03/25 at 1200, Give both components for Diovan HCT product, On hold since Tue03/03/2025 at 1131 until manually unheld * 0900 (Not Given - Provider: Malorie Benitez RN - Reason: See Provider Order) * 0900 (Dose Auto Held) * 0900 (Not Given - Provider: Ely Campos RN - Reason: See Provider Order) * 1520 (Unheld by provider - Provider: Automatic Discharge Provider) Medication Order512/512/12/2024 D5 % and 0.9 % sodium chloride infusion (CANCELED) 100 mL/hr, intravenous, Continuous, Starting on Tue03/04/25 at 0900, For 20 hours * 0922 (New Bag - Provider: Malorie Benitez RN) * 1158 (Stopped - Provider: Malorie Benitez RN - Comment: [Order ends at this time. Document the following action when infusion is complete: Stopped]) lactated Ringer's infusion (CANCELED) 150 mL/hr, intravenous, Continuous, Starting on Tue03/03/25 at 0800, For 20 hours * 0005 (New Bag - Provider: Randa Medina RN) * 0639 (Stopped - Provider: Randa Medina RN - Comment: [Order ends at this time. Document the following action when infusion is complete: Stopped]) lactated Ringer's infusion 125 mL/hr, intravenous, Continuous, Starting on Tue03/05/25 at 0745, For 20 hours * 0827 (New Bag - Provider: Makayla Mejia, KEILA) * 1738 (New Bag - Provider: Makayla Mejia, KEILA) * 0032 (New Bag - Provider: Kala Mayen RN) * 0625 (Stopped - Provider: Kala Mayen RN - Comment: [Order ends at this time. Document the following action when infusion is complete: Stopped]) sodium chloride 0.9 % with KCl 40 mEq/L infusion (CANCELED) 100 mL/hr, intravenous, Continuous, Starting on 03/04/25 at 1330, For 20 hours * 1241 (New Bag - Provider: Malorie Benitez RN) * 1737 (Rate/Dose Verify - Provider: Malorie Benitez RN) * 0040 (Rate/Dose Verify - Provider: Quin Diaz LPN) * 0137 (New Bag - Provider: Quin Diaz LPN) * 0325 (Rate/Dose Verify - Provider: Quin Diaz LPN) * 0608 (Rate/Dose Verify - Provider: Quin Diaz LPN) * 0828 (Stopped - Provider: Makayla Mejia RN - Comment: [Order ends at this time. Document the following action when infusion is complete: Stopped]) Medication Order//12/2024 HYDROmorphone (Dilaudid) injection 0.5 mg (CANCELED) 0.5 mg, intravenous, Every 4 hours PRN, pain ??? moderate (4-6), first line, Starting on 03/03/25 at 0733 * 0309 (Given - Provider: Randa Medina RN) * 0811 (Given - Provider: Malorie Benitez RN) * 1240 (Given - Provider: Malorie Benitez RN) * 2043 (Given - Provider: Hodan Dinh RN) melatonin tablet 3 mg 3 mg, oral, Nightly PRN, sleep, Starting on 03/03/25 at 0124 * 2048 (Given - Provider: Kala Mayen RN - Comment: sleep) ondansetron (Zofran) injection 4 mg(Linked Group 1) 4 mg, intravenous, Every 8 hours PRN, nausea/vomiting, first line, Starting on 03/03/25 at 0124,Administer IV if patient unable to take oral tablet. When administering via IV Push, administer over 3-5 minutes. polyethylene glycol (Glycolax, Miralax) packet 17 g 17 g, oral, Daily PRN, constipation, Starting on 03/03/25 at 0126, Bowel Regimen - for prevention of constipation. Order Group 1: ondansetron ODT (Zofran-ODT) disintegrating tablet 4 mg (CANCELED) 4 mg, oral, Every 8 hours PRN, nausea/vomiting, first line, Starting on 03/03/25 at 0124, 1st Line. Patient should allow tablet to dissolve on tongue. Do not remove from blister pack until just before administering. If inadequate response within 60 minutes, proceed to next-line agent for same PRN reason or contact provider if no further options ordered. Or ondansetron (Zofran) injection 4 mgJump to med 4 mg, intravenous, Every 8 hours PRN, nausea/vomiting, first line, Starting on 03/03/25 at 0124,Administer IV if patient unable to take oral tablet. When administering via IV Push, administer over 3-5 minutes. documented in this encounter Care Teams Team MemberRelationshipSpecialtyStart DateEnd Date Torsten Mahajan DO PCP - General11/07/14documented as of this encounter
--- OUTSIDE RECORDS SUMMARY | 2025-03-07 11:00 | XMS_ITS | Encounter Summary ---
Author Organization [facility] Healthcare Address [address] [place] [address] Care Team Providers Care Special Education Para Professional Name Role Phone Denylaura Torsten Merino DO Primary Care Provider [phone] Reason for Visit * ReasonCommentsGB consult Encounter Details DateTypeDepartmentCare Team (Latest Contact Info)Ieaehxrxuis97/11/2025 11:00 AM ESTConsult [facility] [address] [facility] [address] [place] [address] Andry Griffin DO [address] [facility] [address] [place] [address] Acute biliary pancreatitis without infection or necrosis (HHS-HCC) (Primary Dx); Calculus of gallbladder without cholecystitis without obstruction Social History Tobacco UseTypesPacks/DayYears UsedDateSmoking Tobacco: NeverSmokeless Tobacco: Never Tobacco Cessation:Counseling Given: Not Answered Sex and Gender InformationValueDate RecordedSex Assigned at BirthNot on file Legal UejDngz1306/09/2022 7:18 PM EDTGender IdentityNot on fileSexual Orientation Not on filedocumented as of this encounter Last Filed Vital Signs Vital SignReadingTime TakenCommentsBlood Melmezqe183/8203/07/2025 11:25 AM EST Pulse--Temperature--Respiratory Rate--Oxygen Saturation--Inhaled Oxygen Concentration--Yycfxz587 kg (313 lb)03/07/2025 11:25 AM ILDXiivva961.4 cm (6' 1 )03/07/2025 11:25 AM ESTBody Mass Index41.312 11:25 AM ESTdocumented in this encounter Progress Notes * Andry Griffin DO - 03/07/2025 11:00 AM EST Images from the original note were not included. Fab Peace 1960 Fab Peace is a 64 y.o. male presents with chief complaint of GB consult HPI: HPI Fab was seen in the ER on 03/02/25 with abdominal pain after eating a chicken wrap. He had an elevated WBC to 17 and elevated LFT's, and imaging that showed cholelithiasis. He was transferred to [facility] where they repeated the MRCP. He was not seen by the GI service as they said he passed the stone. He was discharged from [facility] yesterday and he is supposed to scheduled a follow up CMP as an OP. SUBJECTIVE: MEDICATIONS: ALLERGIES Current Outpatient Medications Medication Instructions celecoxib (CELEBREX) 400 mg, Daily RT omeprazole (PRILOSEC) 20 mg, Daily before breakfast Semaglutide-Weight Management 1.8 mg valsartan-hydroCHLOROthiazide (Diovan-HCT) 160-12.5 MG tablet 1 tablet, Daily RT Allergies[1] PAST MEDICAL HISTORY: SOCIAL HISTORY SURGICAL HISTORY: Medical History[2] Social History[3] Surgical History[4] FAMILY HISTORY Family History[5] REVIEW OF SYMPTOMS: Review of Systems Constitutional: Negative for activity change. HENT: Positive for tinnitus. Negative for hearing loss and voice change. Respiratory: Negative for shortness of breath. Cardiovascular: Negative for chest pain. Gastrointestinal: Negative for abdominal distention, diarrhea, nausea and vomiting. Musculoskeletal: Positive for arthralgias. Skin: Positive for color change. Neurological: Negative for dizziness, seizures and headaches. Psychiatric/Behavioral: Negative. All other systems reviewed and are negative. OBJECTIVE: Visit Vitals BP 138/82 Ht 6' 1 Wt 313 lb BMI 41.30 kg/m?? Smoking Status Never BSA 2.7 m?? Physical Exam Vitals reviewed. HENT: Head: Normocephalic. Eyes: General: Scleral icterus present. Pupils: Pupils are equal, round, and reactive to light. Cardiovascular: Rate and Rhythm: Normal rate and regular rhythm. Pulmonary: Effort: Pulmonary effort is normal. Abdominal: General: Bowel sounds are normal. Palpations: Abdomen is soft. Musculoskeletal: General: Normal range of motion. Skin: General: Skin is warm. Coloration: Skin is jaundiced. Neurological: General: No focal deficit present. Mental Status: He is alert. ASSESSMENT AND PLAN: Assessment/Plan Diagnoses and all orders for this visit: Acute biliary pancreatitis without infection or necrosis (HHS-HCC) - CBC and differential; Future - Basic metabolic panel; Future Calculus of gallbladder without cholecystitis without obstruction - CBC and differential; Future - Basic metabolic panel; Future Fab was seen in the ER on 03/02/25 and was diagnosed with cholelithiasis and elevated LFT's. . Hehad a GB US that showed cholelithiasis and a mildly prominent CBD. He had a CT of the Abs/pel that showed cholelithiasis. His T. Bili was 11.4 with and Alk Phos of 180. He was transferred to for ERCP. He had an MRCP on 03/03/25 that showed mild inflammation of the pancrease and gallstones with normal bile ducts. Review of the notes from confirms a disconnect from the MRCP and the still elevated LFT's. On 03/06/25 his T. Bili is still 8.8 with a nl Alk Phos of 101. I spoke with his on the phone and she was able to provide additional information. My plan is to repeat the labs (CBC & CMP) next week. If they continue to resolve I will schedule him for cholecystectomy. If they remain elevated he will need to be referred for an ERCP. I'll see him next week for the test results. I asked him to stay off the Semaglutide for now. [1] No Known Allergies [2] Past Medical History: Diagnosis Date Chicken pox Hypertension [3] Social History Tobacco Use Smoking status: Never Smokeless tobacco: Never Substance Use Topics Drug use: Never [4] Past Surgical History: Procedure Laterality Date BACK SURGERY FL GUIDED ASPIRATION OR INJECTION LARGE JOINT BILATERAL Bilateral 11/13/2020 FL GUIDED ASPIRATION OR INJECTION LARGE JOINT BILATERAL FL GUIDED ASPIRATION OR INJECTION LARGE JOINT BILATERAL Bilateral 11/13/2020 FL GUIDED ASPIRATION OR INJECTION LARGE JOINT BILATERAL HERNIA REPAIR Umbilical Hernia VARICOSE VEIN SURGERY [5] Family History Problem Relation Name Age of Onset Breast cancer Neg Hx Colon cancer Neg Hx Ovarian cancer Neg Hx Pancreatic cancer Neg Hx documented in this encounter Plan of Treatment DateTypeDepartmentCare Team (Latest Contact Info)Muaobtyaywl94/18/2025 10:45 AM ESTOffice Visit [facility] [address] [address] Andry Griffin DO [address] [facility] [address] [place] [address] NameTypePriorityAssociated DiagnosesOrder ScheduleCBC and differentialLabRoutine Acute biliary pancreatitis without infection or necrosis (HHS-HCC) Calculus of gallbladder without cholecystitis without obstruction Expected: 03/07/2025 (Approximate), Expires: 03/07/2026asic metabolic panelLab Routine Acute biliary pancreatitis without infection or necrosis (HHS-HCC) Calculus of gallbladder without cholecystitis without obstruction Expected: 03/07/2025 (Approximate), Expires: 03/07/2026documented as of this encounter Visit Diagnoses Diagnosis Acute biliary pancreatitis without infection or necrosis (HHS-HCC)- Primary Calculus of gallbladder without cholecystitis without obstruction documented in this encounter Care Teams Team MemberRelationshipSpecialtyStart DateEnd Date Torsten Mahajan DO [address] [place] [address] PCP - GeneralFamily Ccekejjv10/10/25documented as of this encounter
--- OUTSIDE RECORDS SUMMARY | 2025-03-13 09:22 | XMS_ITS | Encounter Summary ---
Author Organization [facility] Address [address] [place] [address] Phone Care Team Providers Care Kitchen Steward/Stewardess Name Role Phone Torsten Mahajan Angelique MOSS Primary Care Provider [phone] Reason for Visit * ReasonOnset DateCommentsFollow up03/06/2025 Encounter Details DateTypeDepartmentCare Team (Latest Contact Info)Inarreeniny84/10/2025Telephone [facility] [address] [place] [address] Baldomero Hannah MA Follow up Social History Tobacco UseTypesPacks/DayYears UsedDateSmoking Tobacco: NeverSmokeless Tobacco: NeverAlcohol UseStandard Drinks/WeekCommentsYes0 (1 standard drink = 0.6 [...] were you homeless or living in a long term (including now)?No03/03/2025HC UtilitiesAnswerDate Recorded In the past 12 months has the [employer], gas, oil, or water [employer] threatened to shut off services in your home?No03/03/2025Sex and Gender InformationValueDate RecordedSex Assigned at JuxbmSobu29/09/2025 1:41 PM ESTLegal QzeMcsm13/26/2022 8:24 AM ESTGender RbpihuhhIckq40/09/2025 1:41 PM ESTSexual OrientationNot on filedocumented as of this encounter Miscellaneous Notes * Telephone Encounter - Baldomero Hannah MA - 03/06/2025 2:13 PM EST ----- Message from Hope Angulo sent at 03/06/2025 12:55 PM EST ----- Regarding: zoom follow up Pt with c/f gallstone pancreatitis though nothing on MRCP will need follow up but lives in [place]. Could you schedule him for zoom with [facility]? Outpatient EUS can be discussed at that time. TY * Telephone Encounter - Baldomero Hannah MA - 03/06/2025 2:13 PM EST Spoke with . She states they have not fully set up mychart. They will finish completion and call back to schedule fup with [facility]. documented in this encounter Plan of Treatment Not on file documented as of this encounter Visit Diagnoses Not on filedocumented in this encounter Care Teams Team MemberRelationshipSpecialtyStart DateEnd Date Torsten Mahajan DO PCP - General11/07/14documented as of this encounter
--- OUTSIDE RECORDS SUMMARY | 2025-03-13 09:22 | XMS_ITS | Encounter Summary ---
Author Organization [facility] Address [address] [place] [address] Care Team Providers Care Normalizer Name Role Phone Torsten Mahajan DO Primary Care Provider [phone] Encounter Details DateTypeDepartmentCare Team (Latest Contact Info)Fwvhwpvsddl78/10/2025Travel Social History Tobacco UseTypesPacks/DayYears UsedDateSmoking Tobacco: Never AssessedSex and Gender InformationValueDate RecordedSex Assigned at BirthNot on fileLegal Sex Male06/09/2022 7:18 PM EDTGender IdentityNot on fileSexual OrientationNot on filedocumented as of this encounter Plan of Treatment DateTypeDepartmentCare Team (Latest Contact Info)Iggqkdycoew55/18/2025 10:45 AM ESTOffice Visit [facility] [address] [phone] Andry Griffin DO [address] [facility] [address] [place] [address] documented as of this encounter Visit Diagnoses Not on filedocumented in this encounter Care Teams Team MemberRelationshipSpecialtyStart DateEnd Date Torsten Mahajan DO [address] [place] [address] PCP - GeneralFamily Ktupsjru49/10/25documented as of this encounter
--- OUTSIDE RECORDS SUMMARY | 2025-03-13 09:22 | XMS_ITS | Clinical Summary ---
Author Organization [facility] Address [address] [place] [address] Phone Care Team Providers Care Director Sales Name Role Phone Torsten Mahajan Angelique MOSS Primary Care Provider [phone] Allergies No known active allergies Medications MedicationSigDispense QuantityRefillsLast FilledStart DateEnd DateStatus celecoxib (CeleBREX) 400 mg capsule Take 1 capsule (400 mg) by mouth once daily.Active valsartan-hydrochlorothiazide (Diovan-HCT) 160-12.5 mg tablet Take 1 tablet by mouth once daily.Active omeprazole (PriLOSEC) [address] capsule Take 1 capsule (20 mg) by mouth once daily in the morning. Take before meals. Do not crush or chew.Active omega 2-ker-iui-fish oil (Fish OiL) 1,000 (120-180) mg capsule Take 1 capsule (1,000 mg) by mouth once daily.Active multivitamin with minerals tablet Take 1 tablet by mouth once daily.Active semaglutide, weight loss, 1.7 mg/0.75 mL pen injector Inject 1.8 mg under the skin 1 (one) time per week. Active amoxicillin-clavulanate (Augmentin) 875-125 mg tablet Indications:Acute biliary pancreatitis, unspecified complication status ([facility])Take 1 tablet by mouth 2 times a day for 4 days. 8 tablet 03/06/2025 11:03 AM ESTExpired Active Problems ProblemNoted DateDiagnosed DateBiliary nnkbwzibgqb36/07/2025 Assessment & Plan (03/05/2025 11:57 AM EST): - patient with obstructive jaundice - t [...] trial fat restricteddiet today; NPO after midnight Assessment & Plan (03/04/2025 11:17 AM EST): - patient with obstructive jaundice - t bili uptrending - MRCP showing pancreatitis and mild gallbladder wall thickening; no mention of CBD obstruction - continue zosyn for cholangitis ppx - dilaudid PRN pain - continue IVF - GI consulted; awaiting plan Assessment & Plan (03/03/2025 6:09 AM EST): - Patient presenting to this facility due [...] Obtain repeat liver function studies in a.m. Nqwbrtno57/07/2025 Assessment & Plan (03/05/2025 11:57 AM EST): - patient with obstructive jaundice - t [...] trial fat restricteddiet today; NPO after midnight Assessment & Plan (03/04/2025 11:17 AM EST): - patient with obstructive jaundice - t bili uptrending - MRCP showing pancreatitis and mild gallbladder wall thickening; no mention of CBD obstruction - continue zosyn for cholangitis ppx - dilaudid PRN pain - continue IVF - GI consulted; awaiting plan Assessment & Plan (03/03/2025 6:09 AM EST): - Patient presenting to this facility due [...] Obtain repeat liver function studies in a.m. Common bile duct ebeudlyl57/07/2025Elevated liver function tests03/03/2025 Assessment & Plan (03/05/2025 11:57 AM EST): - patient with obstructive jaundice - t [...] trial fat restricteddiet today; NPO after midnight Assessment & Plan (03/04/2025 11:17 AM EST): - patient with obstructive jaundice - t bili uptrending - MRCP showing pancreatitis and mild gallbladder wall thickening; no mention of CBD obstruction - continue zosyn for cholangitis ppx - dilaudid PRN pain - continue IVF - GI consulted; awaiting plan Assessment & Plan (03/03/2025 6:09 AM EST): - Patient presenting to this facility due [...] Obtain repeat liver function studies in a.m. Acute gjelydyewglg79/07/2025 Assessment & Plan (03/05/2025 11:57 AM EST): - patient with obstructive jaundice - t [...] trial fat restricteddiet today; NPO after midnight Assessment & Plan (03/04/2025 11:17 AM EST): - patient with obstructive jaundice - t bili uptrending - MRCP showing pancreatitis and mild gallbladder wall thickening; no mention of CBD obstruction - continue zosyn for cholangitis ppx - dilaudid PRN pain - continue IVF - GI consulted; awaiting plan Assessment & Plan (03/03/2025 6:09 AM EST): - Patient presenting to this facility due [...] Obtain repeat liver function studies in a.m. Encounters DateTypeDepartmentCare JuypJjkjsimvvzx04/17/2025Orders Only [address] [address] Hope Angulo APRN-REGULATORY SERVICES CONSULTANT Acute biliary pancreatitis, unspecified complication status ([facility])03/06/2025 Telephone [facility] [address] [place] [address] Baldomero Hannah MA Follow up03/05/20252556Pjfdpv70/07/2025 1:10 AM EST - 03/06/2025 1:20 PM ESTHospital Encounter [address] [address] Rahul Mello MD Boylan, Matthew T, Biliary obstruction (Primary Dx); Acute biliary pancreatitis, unspecified complication status ([facility]); Elevated liver function tests; Jaundice Discharge Disposition: Homefrom Last 3 Months Family History Medical HistoryRelationNameCommentsHypertensionFatherDiabetesMotherHypertension MotherRelationNameStatusCommentsFatherMother Social History Tobacco UseTypesPacks/DayYears UsedDateSmoking Tobacco: NeverSmokeless [...] were you homeless or living in a usp (including now)?No03/03/2025HC UtilitiesAnswerDate Recorded In the past 12 months has the electric, gas, oil, or water company threatened to shut off services in your home?No03/03/2025Sex and Gender InformationValueDate RecordedSex Assigned at YsaxuAnfi36/09/2025 1:41 PM ESTLegal MwqCqhc35/26/2022 8:24 AM ESTGender KdikivelNtyp14/09/2025 1:41 PM ESTSexual OrientationNot on file Last Filed Vital Signs Vital SignReadingTime TakenCommentsBlood Pwssobcq547/6448803/06/2025 1:17 PM ESTRN huulzfacKclra1550/10/2025 1:17 PM ZZQZaexhkeiwas49.3 ??C (97.3 ??F)03/06/2025 1:17 PM ESTRespiratory Oygh8305 1:17 PM ESTOxygen Fzwzlcwatf25% 03/06/2025 1:17 PM ESTInhaled Oxygen Concentration--Iihqtz397 kg (310 lb) 03/03/2025 3:59 AM ZXHIgadii062.6 cm (5' 6 )03/03/2025 3:59 AM ESTBody Mass Index50.04105/04/2024 3:59 AM EST Plan of Treatment Health MaintenanceDue DateLast DoneCommentsCT Suekmiokzrxb69/05/1960Colonoscopy 1959Colorectal Cancer Gkykwdtfn42/05/1960FIT-DNA (Cologuard)1959FIT 1959Lipid Panel1959 2663Iaoeuhrtasmfw25/05/1960Welcome to Medicare Visit 1959MMR Vaccines (1 of 1 - Standard series)05/30/1960Hepatitis A Vaccines (1 of 2 - Risk 2-dose series)05/30/1978DTaP/Tdap/Td Vaccines (1 - Tdap) 05/30/1981PSA Prostate Cancer Hpghkushb50/05/2010Pneumococcal Vaccine (1 of 1 - PCV)05/30/2009RSV High Risk: (Elderly (60+) or Population) (1 - Risk 50-74 years 1-dose series)05/30/2009Hepatitis B Vaccines (1 of 3 - Risk 3-dose series)2019Influenza Vaccine (#1)51COVID-19 Vaccine ( - season)5007/25/2020, 1Diabetes Oghvczehg98/10/2026 03/06/2025, 03/05/2025, 03/04/2025, Additional history existsZoster Vaccines Anhnyoqsr18/26/2020, 04/23/2019Hepatitis C ShangouvtCyzaswhje40/09/2025HIB VaccinesAged OutNo longer eligible based on patient's age to complete this topic HPV VaccinesAged OutNo longer eligible based on patient's age to complete this topicIPV VaccinesAged OutNo longer eligible based on patient's age to complete this topicMeningococcal VaccineAged OutNo longer eligible based on patient's age to complete this topicRotavirus VaccinesAged OutNo longer eligible based on patient's age to complete this topic Procedures Procedure NamePriorityDate/TimeAssociated DiagnosisCommentsPHOSPHORUSRoutine 03/06/2025 6:25 AM EST LXKAHRTFSPuptfst41/10/2025 6:25 AM EST COMPREHENSIVE METABOLIC VHWDMPukggwc91/10/2025 6:25 AM EST ZSXNnuisgr33/10/2025 6:25 AM EST ISTLE-4-GPIXTYMDJZBZldurlf83/09/2025 10:02 AM EST YDTPMWDYLRZCNLxyplau60/09/2025 10:02 AM EST EDTHqwrehl59/09/2025 10:02 AM EST ANTIMITOCHONDRIAL JSJHCTXVObbhehs48/09/2025 10:02 AM EST ANTI-SMOOTH MUSCLE VMZPVVENRhbfjqb78/09/2025 10:02 AM EST GRANT WITHOUT REFLEX OADMerwdmx86/09/2025 10:02 AM EST HEPATITIS PANEL, QVQFKLilompl95/09/2025 10:02 AM EST IRON AND TIBCAdd-On03/05/2025 9:57 AM EST FERRITINAdd-On03/05/2025 9:57 AM EST BILIRUBIN, DIRECTAdd-On03/05/2025 9:57 AM EST PROTIME-VGVObczivs16/09/2025 5:47 AM EST KNUALMJMYXSsalevl97/09/2025 5:47 AM EST ZEQSYEJHLCuamgao39/09/2025 5:47 AM EST COMPREHENSIVE METABOLIC CUFIUQwsewfi35/09/2025 5:47 AM EST GFXTwahlgn80/09/2025 5:47 AM EST UHMEnnakke61/08/2025 6:38 AM EST PROTIME-QXYVbiduyn91/08/2025 6:35 AM EST CWRXPAAKEBlenqxr07/08/2025 6:35 AM EST COMPREHENSIVE METABOLIC NFTVULpmxvnv76/08/2025 6:35 AM EST MR MRCP WITH PANCREAS WO AND W CONTRASTPriority Discharge or Observation 03/03/2025 9:41 AM EST COMPREHENSIVE METABOLIC BSJJBYekjsdr80/07/2025 5:41 AM EST SJGLzwbwkk28/07/2025 5:41 AM EST from Last 3 Months Results * (ABNORMAL) CBC (03/06/2025 6:25 AM EST) Only the most recent of4 resultswithin the time period is included. ComponentValueRef RangeTest MethodAnalysis TimePerformed AtPathologist Signature WBC9.84.4 - 11.3 x10*3/uL LAB HEMATOLOGY METHOD 03/06/2025 6:47 AM [facility] LABnRBC0.00.0 - 0.0 /100 WBCs LAB HEMATOLOGY METHOD 03/06/2025 6:47 AM [facility] LABRBC4.684.50 - 5.90 x10*6/uL LAB HEMATOLOGY METHOD 03/06/2025 6:47 AM [facility] JZSRgyxzfxqym52.1(L)13.5 - 17.5 g/dL LAB HEMATOLOGY METHOD 03/06/2025 6:47 AM [facility] AHAEuxkbluwey98.7(L)41.0 - 52.0 % LAB HEMATOLOGY METHOD 03/06/2025 6:47 AM [facility] DKFJUM3506 - 100 fL LAB HEMATOLOGY METHOD 03/06/2025 6:47 AM [facility] FICXWB42.026.0 - 34.0 pg LAB HEMATOLOGY METHOD 03/06/2025 6:47 AM [facility] UXOEPCF83.032.0 - 36.0 g/dL LAB HEMATOLOGY METHOD 03/06/2025 6:47 AM [facility] JVAWWX06.211.5 - 14.5 % LAB HEMATOLOGY METHOD 03/06/2025 6:47 AM [facility] LPXOlwogxglr170976 - 450 x10*3/uL LAB HEMATOLOGY METHOD 03/06/2025 6:47 AM [facility] LABSpecimen (Source)Anatomical Location / LateralityCollection Method / VolumeCollection TimeReceived TimeBlood Venous blood specimen / UnknownVenipuncture / Srbffvm1003/06/2025 6:25 AM EST 03/06/2025 6:34 AM EST Narrative Authorizing ProviderResult TypeResult StatusRahul Mello MDLAB BLOOD ORDERABLESFinal ResultPerforming OrganizationAddressCity/State/ZIP CodePhone Number [facility] [address] [place] [phone] * Phosphorus (03/06/2025 6:25 AM EST) Only the most recent of2 resultswithin the time period is included. ComponentValueRef RangeTest MethodAnalysis TimePerformed AtPathologist Signature Phosphorus3.22.5 - 4.9 mg/dL LAB CHEMISTRY METHOD 03/06/2025 7:21 AM [facility] LABSpecimen (Source)Anatomical Location / LateralityCollection Method / VolumeCollection TimeReceived TimeBlood Venous blood specimen / UnknownVenipuncture / Utdbpli8403/06/2025 6:25 AM EST 03/06/2025 6:34 AM EST Narrative Authorizing ProviderResult TypeResult StatusRahul IRCHARDSON BLOOD ORDERABLESFinal ResultPerforming OrganizationAddressCity/State/ZIP CodePhone Number [facility] [address] [place] [phone] * Magnesium (03/06/2025 6:25 AM EST) Only the most recent of3 resultswithin the time period is included. ComponentValueRef RangeTest MethodAnalysis TimePerformed AtPathologist Signature Magnesium1.821.60 - 2.40 mg/dL LAB CHEMISTRY METHOD 03/06/2025 7:21 AM [facility] LABSpecimen (Source)Anatomical Location / LateralityCollection Method / VolumeCollection TimeReceived TimeBlood Venous blood specimen / UnknownVenipuncture / Kjcpsdq4403/06/2025 6:25 AM EST 03/06/2025 6:34 AM EST Narrative Authorizing ProviderResult TypeResult Zackery RIHCARDSON BLOOD ORDERABLESFinal ResultPerforming OrganizationAddressCity/State/ZIP CodePhone Number [facility] [address] [place] [address] * (ABNORMAL) Comprehensive Metabolic Panel (03/06/2025 6:25 AM EST) Only the most recent of4 resultswithin the time period is included. ComponentValueRef RangeTest MethodAnalysis TimePerformed AtPathologist Signature Zkhmxaq793(H)74 - 99 mg/dL LAB CHEMISTRY METHOD 03/06/2025 7:21 AM [facility] IQFDebpde893114 - 145 mmol/L LAB CHEMISTRY METHOD 03/06/2025 7:21 AM [facility] LABPotassium3.4(L)3.5 - 5.3 mmol/L LAB CHEMISTRY METHOD 03/06/2025 7:21 AM [facility] KXJFjtokxpd11952 - 107 mmol/L LAB CHEMISTRY METHOD 03/06/2025 7:21 AM [facility] TFEOgzajauwrue7518 - 32 mmol/L LAB CHEMISTRY METHOD 03/06/2025 7:21 AM [facility] LABComment:Bicarbonate results may be falsely elevated when Lactate Dehydrogenase (LDH) concentrations exceed 2,000 U/L due to a temporary reagent manufacturing issue. If significantly elevated LDH levels are suspected, interpret bicarbonate results with caution, correlate with the patient???s clinical status, and consider confirming CO2 values using a blood gas analyzer.Anion Eff3284 - 20 mmol/L LAB CHEMISTRY METHOD 03/06/2025 7:21 AM [facility] LABUrea Tqadanqz920 - 23 mg/dL LAB CHEMISTRY METHOD 03/06/2025 7:21 AM [facility] LABCreatinine0.830.50 - 1.30 mg/dL LAB CHEMISTRY METHOD 03/06/2025 7:21 AM [facility] LABeGFR>90>60 mL/min/1.73m*2 LAB CHEMISTRY METHOD 03/06/2025 7:21 AM [facility] LABComment: Calculations of estimated GFR are performed using the 2020 CKD-EPI Study Refit equation without therace variable for the IDMS-Traceable creatinine methods. https://jasn.asnjournals.org/content/early//ASN.7800240557 Calcium8.4(L)8.6 - 10.3 mg/dL LAB CHEMISTRY METHOD 03/06/2025 7:21 AM [facility] LABAlbumin3.0(L)3.4 - 5.0 g/dL LAB CHEMISTRY METHOD 03/06/2025 7:21 AM [facility] LABAlkaline Hocrvovoqzl20864 - 136 U/L LAB CHEMISTRY METHOD 03/06/2025 7:21 AM [facility] LABTotal Protein5.2(L)6.4 - 8.2 g/dL LAB CHEMISTRY METHOD 03/06/2025 7:21 AM [facility] VKICAR86(H)9 - 39 U/L LAB CHEMISTRY METHOD 03/06/2025 7:21 AM [facility] LABBilirubin, Total8.8(H)0.0 - 1.2 mg/dL LAB CHEMISTRY METHOD 03/06/2025 7:21 AM [facility] BDALHQ669(H)10 - 52 U/L LAB CHEMISTRY METHOD 03/06/2025 7:21 AM [facility] LABComment:Patients treated with Sulfasalazine may generate falsely decreased results for ALT.Specimen (Source) Anatomical Location / LateralityCollection Method / VolumeCollection Time Received TimeBloodVenous blood specimen / UnknownVenipuncture / Unknown 03/06/2025 6:25 AM EST03/06/2025 6:34 AM EST Narrative Authorizing ProviderResult TypeResult StatusRahul RICHARDSON BLOOD ORDERABLESFinal ResultPerforming OrganizationAddressCity/State/ZIP CodePhone Number [facility] [address] [place] [address] * (ABNORMAL) Anti-Smooth Muscle Antibody (03/05/2025 10:02 AM EST)ComponentValue Ref RangeTest MethodAnalysis TimePerformed AtPathologist SignatureAnti-Smooth Muscle AntibodyPositive 1:80(A)Utkgabba74/11/2025 12:45 PM [facility] Specimen (Source)Anatomical Location / LateralityCollection Method / Volume Collection TimeReceived TimeBloodVenous blood specimen / UnknownVenipuncture / Nadnwrr3603/05/2025 10:02 AM EST03/05/2025 10:12 AM EST Narrative Authorizing ProviderResult TypeResult StatusChristopher A Pluskota DOLAB BLOOD ORDERABLESFinal ResultPerforming OrganizationAddressCity/State/ZIP CodePhone Number [facility] [address] [address] * (ABNORMAL) Ryizf-4-Qkhotwjbavx (03/05/2025 10:02 AM EST)ComponentValueRef RangeTest MethodAnalysis TimePerformed AtPathologist SignatureAlpha-1 Upglxubnlvs917(H)84 - 218 mg/dL LAB CHEMISTRY METHOD 03/05/2025 5:51 PM [facility] LABSpecimen (Source)Anatomical Location / Laterality Collection Method / VolumeCollection TimeReceived TimeBloodVenous blood specimen / UnknownVenipuncture / Twgfzar5903/05/2025 10:02 AM EST03/05/2025 10:12 AM EST Narrative Authorizing ProviderResult TypeResult StatusChristopher A [employer] DOLAB BLOOD ORDERABLESFinal ResultPerforming OrganizationAddBryn Mawr Rehabilitation Hospitalty/[facility]/ZIP CodePhone Number [facility] [address] [place] [phone] * Ceruloplasmin (03/05/2025 10:02 AM EST)ComponentValueRef RangeTest Method Analysis TimePerformed AtPathologist BaajoivrmGtfwejjukenby97.820.0 - 60.0 mg/dL03/05/2025 9:04 PM [facility] LABSpecimen (Source)Anatomical Location / LateralityCollection Method / VolumeCollection TimeReceived TimeBloodVenous blood specimen / UnknownVenipuncture / Nroiwem7703/05/2025 10:02 AM EST 03/05/2025 10:12 AM EST Narrative Authorizing ProviderResult TypeResult StatusChristopher A [employer] DOLAB BLOOD ORDERABLESFinal ResultPerforming OrganizationAddACMH Hospital/[facility] CodePhone Number [facility] [address] [place] [phone] * Hepatitis panel, acute (03/05/2025 10:02 AM EST)ComponentValueRef RangeTest MethodAnalysis TimePerformed AtPathologist SignatureHepatitis B Surface AntigenNonreactiveNonreactive LAB IMMUNOASSAY METHOD 03/05/2025 6:21 PM [facility] LABComment: Biotin interference may cause falsely decreased results. Patients taking a Biotin dose of up to 5 mg/day should refrain from taking Biotin for 24 hours before sample collection. Providers may contacttheir local laboratory for further information. Hepatitis A Antibody; IgMNonreactiveNonreactive LAB IMMUNOASSAY METHOD 03/05/2025 6:21 PM [facility] LABComment: Biotin interference may cause falsely decreased results. Patients taking a Biotin dose of up to 5 mg/day should refrain from taking Biotin for 24 hours before sample collection. Providers may contacttheir local laboratory for further information. Hepatitis B Core Antibody; IgMNonreactiveNonreactive LAB IMMUNOASSAY METHOD 03/05/2025 6:21 PM [facility] LABComment: Results from patients taking biotin supplements or receiving high-dose biotin therapy should be interpreted with caution due to possible interference with this test. Providers may contact their locallaboratory for further information. Hepatitis C AnitbodyNonreactiveNonreactive LAB IMMUNOASSAY METHOD 03/05/2025 6:21 PM [facility] LABComment:Results from patients taking biotin supplements or receiving high-dose biotin therapy should be interpreted with caution due to possible interference with this test. Providers may contact their locallaboratory for further information.Specimen (Source)Anatomical Location / LateralityCollection Method / VolumeCollection TimeReceived TimeBloodVenous blood specimen / UnknownVenipuncture / Aashjlp1603/05/2025 10:02 AM EST03/05/2025 10:12 AM EST Narrative Authorizing ProviderResult TypeResult StatusChristopher A [employer] DOLAB BLOOD ORDERABLESFinal ResultPerforming OrganizationAddressCity/State/ZIP CodePhone Number [facility] [address] [place], [place] [phone] * Antimitochondrial antibody (03/05/2025 10:02 AM EST)ComponentValueRef Range Test MethodAnalysis TimePerformed AtPathologist SignatureAnti-Mitochondrial RepojvxjBjchfbdzZoznfsxg18/10/2025 2:50 PM [facility] LABSpecimen (Source) Anatomical Location / LateralityCollection Method / VolumeCollection Time Received TimeBloodVenous blood specimen / UnknownVenipuncture / Unknown 03/05/2025 10:02 AM EST03/05/2025 10:12 AM EST Narrative Authorizing ProviderResult TypeResult StatusChristopher A [employer] DOLAB BLOOD ORDERABLESFinal ResultPerforming OrganizationAddressCity/State/ZIP CodePhone Number [facility] [id number] [place] [phone] * GRANT without Reflex MIARA (03/05/2025 10:02 AM EST)ComponentValueRef RangeTest MethodAnalysis TimePerformed AtPathologist SignatureANANegativeNegative 03/06/2025 2:50 PM [facility] LABComment: The Antinuclear Antibody (GRANT) test was performed using indirect immunofluorescence assay with HEp-2 cells slide. Specimen (Source)Anatomical Location / LateralityCollection Method / Volume Collection TimeReceived TimeBloodVenous blood specimen / UnknownVenipuncture / Xoqzwvs6003/05/2025 10:02 AM EST03/05/2025 10:12 AM EST Narrative Authorizing ProviderResult TypeResult StatusChristopher A [employer] DOLAB BLOOD ORDERABLESFinal ResultPerforming OrganizationAddressty/State/ZIP CodePhone Number [facility] [address] [place] [phone] * (ABNORMAL) IgG (03/05/2025 10:02 AM EST)ComponentValueRef RangeTest Method Analysis TimePerformed AtPathologist RsxpguzuzDoO196(L)700 - 1,600 mg/dL 03/05/2025 9:03 PM [facility] LABComment: MONOCLONAL PROTEINS MAY CAUSE FALSELY LOW RESULTS IN THIS ASSAY. SERUM PROTEIN ELECTROPHORESIS SHOULD BE DONE THE FIRST TEST TO EVALUATE MONOCLONAL GAMMOPATHY. Specimen (Source)Anatomical Location / LateralityCollection Method / Volume Collection TimeReceived TimeBloodVenous blood specimen / UnknownVenipuncture / Crwpguc1703/05/2025 10:02 AM EST03/05/2025 10:12 AM EST Narrative Authorizing ProviderResult TypeResult StatusChristopher A [employer] DOLAB BLOOD ORDERABLESFinal ResultPerforming [facility] HealthcareAdd[facility]/ZIP CodePhone Number [facility] [address] [place] [phone] * (ABNORMAL) Iron and TIBC (03/05/2025 9:57 AM EST)ComponentValueRef RangeTest MethodAnalysis TimePerformed AtPathologist YytpxpsmrTxbu4239 - 150 ug/dL LAB CHEMISTRY METHOD 03/05/2025 11:06 AM [facility] VHFGJXO546920 - 370 ug/dL LAB CHEMISTRY METHOD 03/05/2025 11:06 AM [facility] IHJDLJS944(L)240 - 445 ug/dL LAB CHEMISTRY METHOD 03/05/2025 11:06 AM [facility]% Eeznjpdtpt27(L)25 - 45 % LAB CHEMISTRY METHOD 03/05/2025 11:06 AM [facility] LABSpecimen (Source)Anatomical Location / LateralityCollection Method / VolumeCollection TimeReceived TimeBlood Venous blood specimen / UnknownVenipuncture / Awurqtd1903/05/2025 9:57 AM EST 03/05/2025 10:12 AM EST Narrative Authorizing ProviderResult TypeResult StatusChristopher A [employer] DOLAB BLOOD ORDERABLESFinal ResultPerforming OrganizationAddressCity/State/ZIP CodePhone Number [facility] [id number] [place] [phone] * (ABNORMAL) Ferritin (03/05/2025 9:57 AM EST)ComponentValueRef RangeTest Method Analysis TimePerformed AtPathologist SignatureFerritin1,275(H)20 - 300 ng/mL LAB CHEMISTRY METHOD 03/05/2025 11:06 AM [facility] LABSpecimen (Source)Anatomical Location / LateralityCollection Method / VolumeCollection TimeReceived TimeBlood Venous blood specimen / UnknownVenipuncture / Ahvmaqp4103/05/2025 9:57 AM EST 03/05/2025 10:12 AM EST Narrative Authorizing ProviderResult TypeResult StatusChristopher A [employer] DOLAB BLOOD ORDERABLESFinal ResultPerforming OrganizationAddressCity/State/ZIP CodePhone Number [facility] [address] [place] [phone] * (ABNORMAL) Bilirubin, direct (03/05/2025 9:57 AM EST)ComponentValueRef Range Test MethodAnalysis TimePerformed AtPathologist SignatureBilirubin, Direct7.6 (H)0.0 - 0.3 mg/dL LAB CHEMISTRY METHOD 03/05/2025 11:06 AM [facility] LABSpecimen (Source)Anatomical Location / LateralityCollection Method / VolumeCollection TimeReceived TimeBlood Venous blood specimen / UnknownVenipuncture / Bcdhywq8803/05/2025 9:57 AM EST 03/05/2025 10:12 AM EST Narrative Authorizing ProviderResult TypeResult StatusChristopher A [employer]kota DOLAB BLOOD ORDERABLESFinal ResultPerforming OrganizationAddressCity/State/ZIP CodePhone Number [facility] [address] [place] [address] * Protime-INR (03/05/2025 5:47 AM EST) Only the most recent of2 resultswithin the time period is included. ComponentValueRef RangeTest MethodAnalysis TimePerformed AtPathologist Signature Pognvnf73.29.8 - 12.4 seconds LAB COAGULATION METHOD 03/05/2025 6:34 AM [facility] LABINR1.10.9 - 1.1 LAB COAGULATION METHOD 03/05/2025 6:34 AM [facility] LABSpecimen (Source)Anatomical Location / LateralityCollection Method / VolumeCollection TimeReceived TimeBlood Venous blood specimen / UnknownVenipuncture / Mdwoori0303/05/2025 5:47 AM EST 03/05/2025 6:22 AM EST Narrative Authorizing ProviderResult TypeResult StatusRahul RICHARDSON BLOOD ORDERABLESFinal ResultPerforming OrganizationAddressCity/State/ZIP CodePhone Number [facility] [address] [place] [address] * MRCP pancreas w and wo IV [...] Mobley 03/04/2025 9:32 AM Dictation workstation: ?? [id number] Narrative 03/04/2025 9:32 AM EST Interpreted By: Corry Mobley, STUDY: MRCP PANCREAS W AND WO IV CONTRAST; ??03/03/2025 9:41 am ?? INDICATION: Signs/Symptoms:obstructive pattern to LFTs, jaundice. ?? COMPARISON: No prior relevant studies for comparison ?? ACCESSION NUMBER(S): [id number] ?? ORDERING CLINICIAN: CARLY MCCARTHY ?? TECHNIQUE: MRI PANCREAS; Multiplanar magnetic resonance [...] prior relevant studies for comparison ACCESSION NUMBER(S): [id number] ORDERING CLINICIAN: CARLY MCCARTHY TECHNIQUE: MRI PANCREAS; Multiplanar magnetic resonance images [...] Corry Mobley 03/04/2025 9:32 AM Dictation workstation: [id number] Authorizing ProviderResult TypeResult StatusMatthew Macie Mccarthy DOIMG MRI PROCEDURESFinal Result from Last 3 Months Insurance * Guarantor: Fab Peace Jr.Account TypeRelation to PatientDate of BirthPhone Billing AddressPersonal/XdxaduBiqb19/05/1961 [address] [address] * Guarantor: Fab Peace Jr.Account TypeRelation to PatientDate of BirthPhone Billing AddressPersonal/ZtjhsiGgcr98/05/1961 [address] [address] Advance Directives For more information, please contact: [phone] (Available ) * Full Code (Latest Code Status on File) Date ActivatedDate MixfcscganmTxdzmzjv43/7/2025 1:28 AMQuestionAnswerComments Plan of Care:* Code Status Discussion Not Completed Decision Maker:* Provider Rationale:* Patient condition does not warrant discussion Care Teams Team MemberRelationshipSpecialtyStart DateEnd Date Torsten Mahajan DO [facility] [place]11/07/14
--- OUTSIDE RECORDS SUMMARY | 2025-03-13 09:22 | XMS_ITS | Encounter Summary ---
Author Organization [facility] Address [address] [place] [address] Care Team Providers Care Tube Sorter Name Role Phone Torsten Mahajan DO Primary Care Provider [phone] Encounter Details DateTypeDepartmentCare Team (Latest Contact Info)Zgamtzggbni71/11/2025Travel Social History Tobacco UseTypesPacks/DayYears UsedDateSmoking Tobacco: NeverSmokeless Tobacco: NeverSex and Gender InformationValueDate RecordedSex Assigned at BirthNot on fileLegal HwhCmsv5106/09/2022 7:18 PM EDTGender IdentityNot on fileSexual OrientationNot on filedocumented as of this encounter Plan of Treatment DateTypeDepartmentCare Team (Latest Contact Info)Pgrzgfjstxq03/18/2025 10:45 AM ESTOffice Visit [facility] [address] [address] Andry Griffin DO [address] [address] documented as of this encounter Visit Diagnoses Not on filedocumented in this encounter Care Teams Team MemberRelationshipSpecialtyStart DateEnd Date Torsten Mahajan DO [address] [place] [address] PCP - GeneralFamily Gqgytkhm33/10/25documented as of this encounter
--- OUTSIDE RECORDS SUMMARY | 2025-03-13 09:23 | XMS_ITS | Clinical Summary ---
Author Organization [facility] Address [address] [place], [place] [address] Care Team Providers Care Soybean Grower Name Role Phone Torsten Mahajan DO Primary Care Provider [phone] Allergies No known active allergies Medications MedicationSigDispense QuantityRefillsLast FilledStart DateEnd DateStatus pantoprazole DR (PROTONIX) 40 mg tablet Take 40 mg by mouth once daily.Active Valsartan-hydroCHLOROthiazide 160-12.5 mg per tablet Take 1 tablet by mouth once daily.Active ibuprofen-famotidine (DUEXIS) 800-26.6 mg tab Take 1 tablet by mouth three times daily.Active Social History Tobacco UseTypesPacks/DayYears UsedDateSmoking Tobacco: NeverSmokeless Tobacco: NeverArea Deprivation IndexAnswerDate RecordedNational Score (1-100), lower number is lower riskNot on file11/20/2020tate Score (1-10), lower number is lower riskNot on file11/20/2020ata from: https://www.neighborhoodatlas.medicine.[facility].edu/. Last address used for calculationNot on file11/20/2020ex and Gender InformationValueDate RecordedSex Assigned at BirthNot on fileLegal UmjIibw1510/14/2020 10:29 AM EDTGender Identity Not on fileSexual OrientationNot on file Last Filed Vital Signs Vital SignReadingTime TakenCommentsBlood Rgsscboe067/9008 9:28 AM EDT Nlcxm310711/20/2020 9:23 AM VBQHbjncczceey26.3 ??C (97.4 ??F)11/20/2020 9:23 AM EDTRespiratory Rate--Oxygen Xhujwxxcpu50%11/20/2020 9:23 AM EDTInhaled Oxygen Concentration--Rtngri869.1 kg (331 lb)11/20/2020 9:23 AM DSRTceefe895.4 cm (6' 1 )11/20/2020 9:23 AM EDTBody Mass Index43.67011/20/2020 9:23 AM EDT Plan of Treatment Health MaintenanceDue DateLast DoneCommentsAnxiety Jyrdttmvf44/05/1978Depression Idltlxsyq25/05/1978HIV Jyegpopnd70/05/1978Hepatitis C Veobqtyer50/05/1978 DTaP,Tdap,Td Vaccine (1 - Tdap)05/30/1978Lipid Stzxdicrs04/05/1995CT Vzbofrwdbwox71/05/2005Cologuard (FIT-DNA)05/30/20043132Vkzpynpcllx26/05/2005 Colorectal Cancer Invnysjcs02/05/2005Fecal Occult Blood05/30/2004Prostate Cancer Screening Eycdhyjuki47/05/7712Rmimbmwspglbi67/05/2005Pneumococcal Vaccine: 50+ (1 of 1 - PCV)05/30/2009Shingrix Vaccine (1 of 2)05/30/2009Diabetes Screening , 04/11/2017Advance Directive Dgizfzjwrx97/05/2025ovid-19 Vaccine ( - season)2024Influenza Vaccine (#1)2024RSV Vaccine (1 - 1-dose 75+ series)05/30/2034 Insurance Care Teams Team MemberRelationshipSpecialtyStart DateEnd Date Torsten Mahajan DO [address] [place] [address] [facility]/20
--- OUTSIDE RECORDS SUMMARY | 2025-03-13 09:23 | XMS_ITS | Encounter Summary ---
Author Organization [facility] Address [address] [place] [address] Care Team Providers Care Drift Miner Name Role Phone Torsten Mahajan DO Primary Care Provider [phone] Encounter Details DateTypeDepartmentCare Team (Latest Contact Info)Rbfudrvepbq76/12/2025Travel Social History Tobacco UseTypesPacks/DayYears UsedDateSmoking Tobacco: NeverSmokeless Tobacco: NeverSex and Gender InformationValueDate RecordedSex Assigned at BirthNot on fileLegal ElpWpcw4906/09/2022 7:18 PM EDTGender IdentityNot on fileSexual OrientationNot on filedocumented as of this encounter Plan of Treatment DateTypeDepartmentCare Team (Latest Contact Info)Hdjxefgswjg46/18/2025 10:45 AM ESTOffice Visit [facility] [address] [address] Andry Griffin DO [address] [address] documented as of this encounter Visit Diagnoses Not on filedocumented in this encounter Care Teams Team MemberRelationshipSpecialtyStart DateEnd Date Torsten Mahajan DO [address] [place] [address] PCP - GeneralFamily Bclywcrq31/10/25documented as of this encounter
--- OUTSIDE RECORDS SUMMARY | 2025-03-13 09:23 | XMS_ITS | Clinical Summary ---
Author Organization [facility] Address [id number] [address] [place] [address] Care Team Providers Care Clinical Informatics Specialist Name Role Phone Torsten Mahajan Angelique MOSS Primary Care Provider [phone] Allergies No known active allergies Medications MedicationSigDispense QuantityRefillsLast FilledStart DateEnd DateStatus losartan-hydroCHLOROthiazide (HYZAAR) 100-25 mg per tablet Take 1 tablet by mouth daily.Active dexlansoprazole (DEXILANT) 60 mg capsule Take 60 mg by mouth daily.Active ibuprofen (ADVIL,MOTRIN) 600 mg tablet Take 600 mg by mouth every 6 (six) hours as needed for pain.Active pantoprazole (PROTONIX) 40 mg EC tablet 09/21/2018Active rltkqjfp-abnl-BL-calcium &mins (THERAGRAN-M) 9 mg iron-400 mcg tablet Take 1 tablet by mouth daily.Active aspirin 81 mg Take 81 mg by mouth daily.Active naproxen sodium (ALEVE ORAL) Take by mouth.Active Active Problems No known active problems Family History Medical HistoryRelationNameCommentsNo Known ProblemsFatherHeart diseaseMaternal GrandfatherHypertensionMotherRelationNameStatusCommentsFatherDeceasedMaternal GrandfatherMotherAlive Social History Tobacco UseTypesPacks/DayYears UsedDateSmoking Tobacco: NeverSmokeless Tobacco: NeverAlcohol UseStandard Drinks/WeekCommentsYes0 (1 standard drink = 0.6 oz pure alcohol)occasionalChildcareAnswerDate ImicszjgDqwdfsfteEvwkynb04/12/2019 EmploymentAnswerDate ChrbylxtCsrmpdhsnsXoaiwav47/12/2019Purpose - LifeAnswerDate RecordedPurpose and direction in fknqHkyjoas95/11/2021ex and Gender Information ValueDate RecordedSex Assigned at BirthNot on fileLegal UmzRxpn8810/29/2014 11:27 PM EDTGender IdentityNot on fileSexual OrientationNot on file Last Filed Vital Signs Vital SignReadingTime TakenCommentsBlood Kweqsygp163/7602 2:09 PM EST Nxidw1323 12:45 PM IDBLhqtjhhscqh82.7 ??C (98.1 ??F)12/28/2017 11:04 AM EDTRespiratory Aoft9541 11:45 AM EDTOxygen Kmislamkky40%12/28/2017 12:45 PM EDTInhaled Oxygen Concentration--Ofsufq405.1 kg (342 lb)05/21/2019 2:09 PM PWTWqakpe719.4 cm (6' 1 )05/21/2019 2:09 PM ESTBody Mass Index45.12005/21/2019 2:09 PM EST Plan of Treatment Health MaintenanceDue DateLast DoneCommentsDepression Cntwyccza30/05/1972Tobacco Beyjcyaqw95/05/1972Adult BMI Vtevrdbqo37/05/1978DTaP,Tdap and Td Vaccines (1 - Tdap)05/30/1978Zoster (Shingles) Vaccine (1 of 2)05/30/20097074Mzpmhxilytc87/04/2024 11/29/2018Fall Risk Assdfciex59/05/2025Influenza Ntjpguq5011/26/2024RSV ( or age 60+ yrs) (1 - 1-dose 75+ series)05/30/2034 Medical Devices Not on file Procedures Procedure NamePriorityDate/TimeAssociated DiagnosisCommentsHM COLONOSCOPYRoutine 11/29/2018 1:46 PM EDTfrom Last 3 Months or Most Recently Relevant to Health Maintenance Insurance * Guarantor: Fab Peace Jr.Account TypeRelation to PatientDate of PhoneBilling AddressPersonal/FfxiwyCiif98/05/1961 [address] [address] Care Teams Team MemberRelationshipSpecialtyStart DateEnd Date Torsten Mahajan DO [facility]12/20/17
--- OUTSIDE RECORDS SUMMARY | 2025-03-13 09:23 | XMS_ITS | Encounter Summary ---
Author Organization [facility] Address [address] [place] [address] Care Team Providers Care Small Business Banking Officer Name Role Phone Denylaura Torsten Merino DO Primary Care Provider [phone] Encounter Details DateTypeDepartmentCare Team (Latest Contact Info)Kiomjvwgluh48/11/2025Orders Only [facility] [address] [address] Andry Griffin, DO [address] [address] Social History Tobacco UseTypesPacks/DayYears UsedDateSmoking Tobacco: NeverSmokeless Tobacco: NeverSex and Gender InformationValueDate RecordedSex Assigned at BirthNot on fileLegal YbySojq7306/09/2022 7:18 PM EDTGender IdentityNot on fileSexual OrientationNot on filedocumented as of this encounter Plan of Treatment DateTypeDepartmentCare Team (Latest Contact Info)Wvthnpynuvs35/18/2025 10:45 AM ESTOffice Visit [facility] [address] [address] Andry Griffin, DO [address] [address] documented as of this encounter Procedures Procedure NamePriorityDate/TimeAssociated DiagnosisCommentsUS GALLBLADDERRoutine 03/02/2025 12:28 PM ESTdocumented in this encounter Results * US gallbladder (03/02/2025 12:28 PM EST)Anatomical RegionLateralityModality Gall bladderUltrasound Narrative Authorizing ProviderResult TypeResult StatusFredric Gloria Griffin DOIMG PROCEDURESFinal Result documented in this encounter Visit Diagnoses Not on filedocumented in this encounter Care Teams Team MemberRelationshipSpecialtyStart DateEnd Date Torsten Mahajan DO [facility] [place] [address] PCP - GeneralFamily Ykzaupvd76/10/25documented as of this encounter
--- OUTSIDE RECORDS SUMMARY | 2025-03-13 09:23 | XMS_ITS | Encounter Summary ---
Author Organization [facility] Address [address] [place] [address] Phone Care Team Providers Care Construction Helper Name Role Phone Torsten Mahajan Primary Care Provider [phone] Encounter Details DateTypeDepartmentCare Team (Latest Contact Info)Gdvddunbqzs50/17/2025Orders Only [address] [address] [place] [address] Hope Angulo, [facility] [address] [place] [address] Acute biliary pancreatitis, unspecified complication status ([facility]) Social History Tobacco UseTypesPacks/DayYears UsedDateSmoking Tobacco: NeverSmokeless [...] were you homeless or living in a jail (including now)?No03/03/2025HC UtilitiesAnswerDate Recorded In the past 12 months has the [employer], gas, oil, or water [employer] threatened to shut off services in your home?No03/03/2025Sex and Gender InformationValueDate RecordedSex Assigned at VeyedPuao74/09/2025 1:41 PM ESTLegal DhmRgdu38/26/2022 8:24 AM ESTGender OahlljemDome05/09/2025 1:41 PM ESTSexual OrientationNot on filedocumented as of this encounter Plan of Treatment Not on file documented as of this encounter Visit Diagnoses Diagnosis Acute biliary pancreatitis, unspecified complication status ([facility]) documented in this encounter Care Teams Team MemberRelationshipSpecialtyStart DateEnd Date Torsten Mahajan DO PCP - General11/07/14documented as of this encounter
--- OUTSIDE RECORDS SUMMARY | 2025-03-13 09:23 | XMS_ITS | Clinical Summary ---
Author Organization [facility] Address [address] [place] [address] Care Team Providers Care Mechanical Maintenance Instructor Name Role Phone Torsten Mahajan Primary Care Provider [phone] Allergies No known active allergies Medications MedicationSigDispense QuantityRefillsLast FilledStart DateEnd DateStatus valsartan-hydrochlorothiazide 160-12.5 MG Tab Take 1 tablet by mouth daily.Active pantoprazole [address] tablet Take 40 mg by mouth daily.Active Ibuprofen-Famotidine (DUEXIS PO) Take by mouth.Active celecoxib 200 MG capsule Take 1 capsule by mouth daily. 30 capsule 11/13/2020ctive celecoxib 200 MG capsule Take 1 capsule by mouth daily. 30 capsule 1Active Social History Tobacco UseTypesPacks/DayYears UsedDateSmoking Tobacco: NeverSmokeless Tobacco: NeverAlcohol UseStandard Drinks/WeekCommentsYes2 (1 standard drink = 0.6 oz pure alcohol)occasionalSex and Gender InformationValueDate RecordedSex Assigned at BirthNot on fileLegal TujUbye6810/25/2016 10:10 AM EDTGender IdentityMale 04/08/2017 1:45 PM ESTSexual OrientationNot on file Last Filed Vital Signs Vital SignReadingTime TakenCommentsBlood Ctbjahzt590/69004/14/2017 8:56 AM EST Ytylt895504/14/2017 8:56 AM SJFAgvhvytviyb10.6 ??C (96.1 ??F)11/13/2020 2:20 PM EDTRespiratory Bsmu011104/14/2017 8:56 AM ESTOxygen Cjogpxlgyz27%04/14/2017 8:56 AM ESTInhaled Oxygen Concentration--Lmacvx203.2 kg (351 lb)11/13/2020 2:20 PM XFKGdvkbl427.4 cm (6' 1 )11/13/2020 2:20 PM EDTBody Mass Index46.31011/13/2020 2:20 PM EDT Plan of Treatment Health MaintenanceDue DateLast DoneCommentsHEPATITIS C VIRUS SCQDVGXCN51/05/1961 TGSQFSO40 1959TDAP (ADULT)05/30/1978LIPID BOUJWHYYO44/05/2000COLORECTAL CANCER SCREENING SLLBGRKNXW86/05/2005PNEUMOCOCCAL VACCINE SERIES (1 of 1 - PCV) 05/30/2009ZOSTER (SHINGLES) VACCINE (1 of 2)05/30/2009PROSTATE CANCER SCREENING VFWUKFCVQL23/05/2015COVID-19 VACCINE (1 - 2024- season)2024INFLUENZA VACCINE (#1)2024RSV VACCINE (1 - 1-dose 75+ series)05/30/2034HEP B VACCINE Aged OutNo longer eligible based on patient's age to complete this topic Insurance Care Teams Team MemberRelationshipSpecialtyStart DateEnd Date Torsten Mahajan DO PCP - GeneralInternal Medicine04/08/17
--- OUTSIDE RECORDS SUMMARY | 2025-03-13 09:23 | XMS_ITS | Encounter Summary ---
Author Organization [facility] Address [address] [place] [address] Phone Care Team Providers Care Textbook Associate Name Role Phone Torsten Mahajan Primary Care Provider [phone] Encounter Details DateTypeDepartmentCare Team (Latest Contact Info)Bfgracxvfmt84/09/2025Travel Social History Tobacco UseTypesPacks/DayYears UsedDateSmoking Tobacco: NeverSmokeless [...] were you homeless or living in a prison (including now)?No03/03/2025HC UtilitiesAnswerDate Recorded In the past 12 months has the [employer], gas, oil, or water authorGEN threatened to shut off services in your home?No03/03/2025Sex and Gender InformationValueDate RecordedSex Assigned at IyixeWyva06/09/2025 1:41 PM ESTLegal IzbXvli91/26/2022 8:24 AM ESTGender AgicsteoWhxc21/09/2025 1:41 PM ESTSexual OrientationNot on filedocumented as of this encounter Plan of Treatment Not on file documented as of this encounter Visit Diagnoses Not on filedocumented in this encounter Care Teams Team MemberRelationshipSpecialtyStart DateEnd Date Torsten Mahajan DO PCP - General11/07/14documented as of this encounter
--- OUTSIDE RECORDS SUMMARY | 2025-03-13 09:23 | XMS_ITS | Clinical Summary ---
Author Organization [facility] Address [address] [place] [address] Care Team Providers Care In File Operator Name Role Phone Zaina Torsten Merino DO Primary Care Provider [phone] Allergies No known active allergies Medications MedicationSigDispense QuantityRefillsLast FilledStart DateEnd DateStatus celecoxib (CeleBREX) 400 MG capsule Take 400 mg by mouth in the morning.5Active omeprazole (PriLOSEC) [address] capsule Take 20 mg by mouth in the morning. Take before meals.Active Semaglutide-Weight Management 1.7 MG/0.75ML solution auto-injector Inject 1.8 mg under the skin5Active valsartan-hydroCHLOROthiazide (Diovan-HCT) 160-12.5 MG tablet Take 1 tablet by mouth in the morning.5Active Active Problems ProblemNoted DateDiagnosed DateAcute biliary pancreatitis without infection or necrosis ([facility])03/06/2025alculus of gallbladder without cholecystitis without toegehahjmz28/10/2025 Encounters DateTypeDepartmentCare UvteBagxiyexqwg52/12/7454Isundz30/11/2025 11:00 AM EST Consult [facility] [address] [place] [address] Andry Griffin, Acute biliary pancreatitis without infection or necrosis ([facility]) (Primary Dx); Calculus of gallbladder without cholecystitis without iwgrszncatb58/11/2025 Orders Only [facility] [address] [place] [phone] Andry Griffin, DO 03/07/20255136Zjhkot36/10/2025Travelfrom Last 3 Months Family History Medical HistoryRelationNameCommentsBreast cancerNeg HxColon cancerNeg HxOvarian cancerNeg HxPancreatic cancerNeg HxRelationNameStatusCommentsBrotherHalf brother FatherDeceasedMotherAliveSister1 sister Social History Tobacco UseTypesPacks/DayYears UsedDateSmoking Tobacco: NeverSmokeless Tobacco: Never Tobacco Cessation:Counseling Given: Not Answered Sex and Gender InformationValueDate RecordedSex Assigned at BirthNot on file Legal JzgZxkj6306/09/2022 7:18 PM EDTGender IdentityNot on fileSexual Orientation Not on file Last Filed Vital Signs Vital SignReadingTime TakenCommentsBlood Qwkumbya094/8203/07/2025 11:25 AM EST Pulse--Temperature--Respiratory Rate--Oxygen Saturation--Inhaled Oxygen Concentration--Idmawo585 kg (313 lb)03/07/2025 11:25 AM HHESjpmde018.4 cm (6' 1 )03/07/2025 11:25 AM ESTBody Mass Index41. 11:25 AM EST Plan of Treatment DateTypeDepartmentCare Team (Latest Contact Info)Kbrsvfnitud74/18/2025 10:45 AM ESTOffice Visit [facility] [address] [phone] Andry Griffin, DO [address] [address] Health MaintenanceDue DateLast DoneCommentsCT Amylwzmrccry48/05/1960Colonoscopy 1959Colorectal Cancer Kujvlitkx64/05/1960FIT-DNA1959FIT1959 FOBT1959 5693Oiicrsuswgaxn15/05/1960Pneumococcal Vaccine: 65+ Years (1 of 1 - PCV)05/30/2009COVID-19 Vaccine (2024- season)5007/25/2020, 06/25/2020Influenza Vaccine (#1) Procedures Procedure NamePriorityDate/TimeAssociated DiagnosisCommentsUS GALLBLADDERRoutine 03/02/2025 12:28 PM ESTfrom Last 3 Months Results * US gallbladder (03/02/2025 12:28 PM EST)Anatomical RegionLateralityModality Gall bladderUltrasound Narrative Authorizing ProviderResult TypeResult StatusFredric Gloria Gaby DOIMG US PROCEDURESFinal Result from Last 3 Months Insurance Care Teams Team MemberRelationshipSpecialtyStart DateEnd Date Torsten Mahajan DO [address] [place] [address] PCP - GeneralFamily Knlcjrrn59/10/25
[2025-03-13 12:01] LABS: Prostate Specific Antigen Dx 6.48 ng/mL (<=4.00)
== END 2025-03-13 09:17 | disposition home or self-care (01) ==
LOC: LAB 09:19
PROVIDERS: PCP Family Medicine; Visit Provider Urology
DX: R97.20 Elevated prostate specific antigen [PSA] (principal)
CPT/HCPCS: 36415; 84153

== ENCOUNTER 2025-03-13 09:22 | Outpatient (OUT) | payer MEDICARE, BC, SELFPAY ==
[2025-03-13 10:03] LABS: Hematocrit 48.8 % (42.0-54.0); Hemoglobin 16.1 g/dL (14.0-18.0); Mean Corpuscular HGB Conc 33.0 g/dL (29.9-35.2); Mean Corpuscular Hemoglobin 28.9 pg (25.9-34.0); Mean Corpuscular Volume 87.6 fL (80.0-94.0); Platelet Count 400 10^3/uL (150-450); Red Blood Count 5.57 10^6/uL (4.70-6.10); White Blood Count 13.3 10^3/uL (4.0-11.0)
[2025-03-13 10:44] LABS: Anion Gap 14.4; Blood Urea Nitrogen 18.0 mg/dL (7.0-18.0); Calcium 9.8 mg/dL (8.5-10.1); Carbon Dioxide 27.2 mmol/L (21.0-32.0); Chloride 104 mmol/L (98-107); Estimated GFR (African America >60 (>=60 mL/min/1.73m^2); Estimated GFR (Non-African Ame >60 (>=60 mL/min/1.73m^2); Glucose 104 mg/dL (74-106); Potassium 4.6 mmol/L (3.5-5.1); Sodium 141 mmol/L (136-145)
[2025-03-13 10:59] LABS: Atypical Lymphocytes % Manual 8.0 %; Atypical Lymphocytes Abs Man 1.06; Band Neutrophils Absolute 0.1 10^3/uL (0.0-0.3); Basophils Abs Manual 0.00 10^3/uL (0.00-0.10); Basophils Percent Manual 0.0 % (0.2-2.0); Eosinophils Absolute Manual 0.53 10^3/uL (0.00-0.70); Eosinophils Percent Manual 4.0 % (0.9-7.0); Lymphocytes Absolute Manual 4.25 10^3/uL (1.20-3.80); Lymphocytes Percent Manual 32.0 % (20.5-60.0); Monocytes Absolute Manual 1.19 10^3/uL (0.30-0.80); Monocytes Percent Manual 9.0 % (1.7-12.0); Segmented Neut Absolute Manual 6.11 10^3/uL (1.4-6.5); Segmented Neutrophils % Manual 46.0 (43.0-75.0)
[2025-03-13 14:13] LABS: Alanine Aminotransferase 275 U/L (16-63); Albumin Globulin Ratio 1.0; Albumin Level 3.4 g/dL (3.4-5.0); Alkaline Phosphatase 174 U/L (46-116); Aspartate Amino Transferase 137 U/L (15-37); Globulin 3.5 g/dL; Total Protein 6.9 g/dL (6.4-8.2)
== END 2025-03-13 09:23 | disposition home or self-care (01) ==
LOC: LAB 09:24
PROVIDERS: PCP Family Medicine
DX: K85.10 Biliary acute pancreatitis without necrosis or infection (principal); K80.20 Calculus of gallbladder without cholecystitis without obstruction; R97.20 Elevated prostate specific antigen [PSA]
CPT/HCPCS: 36415; 80048; 80076; 84153; 85007; 85027